=== PATIENT | female | born 1950 | race Caucasian/White ===

== ENCOUNTER 2018-09-18 17:18 | Emergency (ER) | payer MEDICARE, OTHER ==
[~2018-09-18] VITALS: Ht 149.9 cm; Wt 63.6 kg
[2018-09-18 20:33] VITALS: BP 149/66
== END 2018-09-18 20:35 | disposition home or self-care (01) ==
LOC: ER 17:19
DX: R51 Headache (principal)
CPT/HCPCS: 70450; 99284

== ENCOUNTER 2019-07-10 21:16 | Inpatient (IN) | payer MEDICARE, OTHER ==
[~2019-07-10] VITALS: Ht 162.6 cm; Wt 58.7 kg
[2019-07-10] MEDS: heparin 25,000 UNIT/250ml bag 250 ML IV SCH (01:50)
[~2019-07-10 21:16] MED LIST: etomidate 2mg/ml inj. ONE; heparin 10,000 units/1 ML INJ ONE; heparin, porcine-25,000 units/D5-250ml premix IV ONE; nitroGLYCERIN 0.4mg SUBLingual tab SL ONE; normal saline 1000ML IV soln ONE; rocuronium 10mg/ml inj IV ONE; sod chloride 0.9% 10ml flush syringe IV ONE
[2019-07-10] MEDS ORDERED: propofol 1000mg/100ml bottle 100 ML IV ONE (21:19)
[2019-07-10] MEDS ORDERED: succinylcholine 20mg/ml inj IV ONE (21:20)
[2019-07-10] MEDS ORDERED: FENTANYL-0.9 % NACL/PF 100 ML IV PRN (21:25)
[2019-07-10] MEDS ORDERED: nitroGLYCERIN-Tridil 50MG/D5W 250 ML IV PRN (21:25)
[2019-07-10] MEDS ORDERED: etomidate 2mg/ml inj. IV ONE (21:26)
[2019-07-10] MEDS ORDERED: rocuronium 10mg/ml inj IV ONE (21:26)
[2019-07-10] MEDS ORDERED: amiodarone 150mg/dext, iso-os 100 ML IV ONE (21:30)
[2019-07-10] MEDS ORDERED: amiodarone/D5 360MG/200ML BAG 200 ML IV SCH (21:30)
[2019-07-10] MEDS ORDERED: heparin 10,000 units/1 ML INJ IV ONE (21:35)
[2019-07-10] MEDS ORDERED: heparin 10,000 units/1 ML INJ IV PRN (21:35)
[2019-07-10 21:41] LABS: BASOPHILS # (AUTO) 0.2 X10'3 (0-0.2); BASOPHILS % (AUTO) 1.3 % (0-1); EOSINOPHILS # (AUTO) 0.5 X10'3 (0-0.9); EOSINOPHILS % (AUTO) 4.1 % (0-6); HEMATOCRIT 44.1 % (35.0-45.0); HEMOGLOBIN 14.6 g/dl (12.0-16.0); LYMPHOCYTES % (AUTO) 43.1 % (21-51); MEAN CORPUSCULAR HGB CONC 33.2 g/dL (33.0-36.5); MEAN CORPUSCULAR VOLUME 93.4 FL (78-98); MEAN PLATELET VOLUME 8.6 FL (7.4-10.4); MONOCYTES # (AUTO) 0.7 X10'3 (0-0.9); MONOCYTES % (AUTO) 6.4 % (2-12); NEUTROPHILS # (AUTO) 5.2 X10'3 (1.8-7.7); NEUTROPHILS % (AUTO) 45.1 % (42-75); PLATELET COUNT 228 X10'3 (140-440); RED BLOOD COUNT 4.72 X10'6 (4.20-5.60); RED CELL DISTRIBUTION WIDTH 13.4 % (11.5-14.5); WHITE BLOOD COUNT 11.5 X10'3 (4.5-11.0)
[2019-07-10] MEDS ORDERED: LIDOcaine 1% (10mg/ml)w/preservative injection 20ml MDV ONE (21:47)
[2019-07-10] MEDS ORDERED: iohexol 350 MG/ML 50ML vial IV ONE (21:48)
[2019-07-10] MEDS ORDERED: iohexol 350 MG/1 ML 200ml bottle ONE (21:48)
[2019-07-10 21:49] LABS: PARTIAL THROMBOPLASTIN TIME 32 SECONDS (22-32)
--- NOTE | 2019-07-10 21:53 | NUR ---
HISTORY LIMITED DUE TO PATIENT ALOC.
[2019-07-10 22:01] LABS: ALANINE AMINOTRANSFERASE 94 U/L (12-78); ALBUMIN 3.4 G/DL (3.4-5.0); ALBUMIN/GLOBULIN RATIO 0.9 (1.1-1.5); ALKALINE PHOSPHATASE 71 IU/L (46-116); ANION GAP 29 (8-16); ASPARTATE AMINO TRANSFERASE 88 U/L (10-37); BILIRUBIN,TOTAL 0.2 MG/DL (0.1-1.0); BLOOD UREA NITROGEN 10 MG/DL (7-18); BUN/CREATININE RATIO 8.8 (6.6-38.0); CALCIUM 8.9 MG/DL (8.5-10.1); CHLORIDE 104 MMOL/L (99-107); CREATININE 1.14 MG/DL (0.40-0.90); GLUCOSE 272 MG/DL (70-104); SODIUM 142 MMOL/L (135-145); eGFR 48 ML/MIN
[2019-07-10 22:01] LABS: CLARITY,URINE CLEAR (Clear); COLOR,URINE YELLOW (Yellow); GLUCOSE, URINE 250 mg/dl (Neg); KETONES,URINE NEGATIVE (Neg); LEUKOCYTE ESTERASE ,URINE NEGATIVE (Neg); NITRITES, URINE NEGATIVE (Neg); OCCULT BLOOD,URINE MODERATE (Neg); PROTEIN,URINE 100 mg/dl (Neg); UROBILINOGEN,URINE 0.2 E.U/dL (0.2-1.0)
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
[2019-07-10 22:06] LABS: POTASSIUM 2.7 MMOL/L (3.5-5.1)
[2019-07-10 22:07] LABS: TOTAL CARBON DIOXIDE 9.1 MMOL/L (24-32)
[2019-07-10 22:08] LABS: UA COLLECTION TYPE CLN CATCH MIDSTREAM
[2019-07-10 22:09] LABS: BACTERIA,URINE FEW /HPF (Neg); SQUAMOUS EPITHELIAL CELL,UR FEW /LPF (FEW); WBC,URINE 0-4 /HPF (0-4)
[2019-07-10] MEDS ORDERED: midazolam 2 mg/2 ml injection ONE ×2 (22:11→23:02)
[2019-07-10] MEDS ORDERED: DOBUTamine-DoBUTrex 500mg/D5W 250 ML IV ONE (22:19)
[2019-07-10] MEDS ORDERED: tirofiban 12.5mg in NS 250mL 250 ML IV ONE (22:27)
[2019-07-10] MEDS ORDERED: iohexol 350MG/ML 100ml bottle IV ONE (22:48)
--- NOTE | 2019-07-10 23:23 | NUR ---
On standby with vent from 2157 to 2 per request of daylin rouse RN Addendum: 07/10/19 at 9336 by Trevor Bingham RT Amended: Links added.
[2019-07-10] MEDS ORDERED: magnesium 4gm in 100ml NS 100 ML IV PRN (23:40)
[2019-07-10] MEDS ORDERED: magnesium 2GM in 50ml NS 50 ML IV PRN (23:40)
[2019-07-10 23:53] LABS: MAGNESIUM 2.3 MG/DL (1.5-2.4); PHOSPHORUS 5.8 MG/DL (2.3-4.5)
[2019-07-11] VITALS (23 sets, daily range): BP systolic 50–102; BP diastolic 30–71
[2019-07-11] MEDS ORDERED: acetaminophen 650mg rectal suppository RC PRN (00:10)
[2019-07-11] MEDS ORDERED: MIDAZolam 5mg/ml 2ml vial IV ONE (00:10)
[2019-07-11] MEDS ORDERED: acetaminophen 325mg tablet PO PRN ×3 (00:10→00:35)
[2019-07-11] MEDS ORDERED: potassium CL 10mEq/100ml bag 100 ML IV PRN ×2 (00:10)
[2019-07-11] MEDS ORDERED: ondansetron/PF 4mg/2ml inj IV PRN (00:10)
[2019-07-11] MEDS ORDERED: midazolam 2 mg/2 ml injection IV ONE (00:15)
[2019-07-11] MEDS ORDERED: HYDROcodone/acetaminophen 10/325mg tab PO PRN ×2 (00:35)
[2019-07-11] MEDS ORDERED: morphine 10mg/ml inj. IV PRN (00:35)
[2019-07-11] MEDS ORDERED: OXAZEpam 15mg capsule PO PRN (00:35)
[2019-07-11] MEDS ORDERED: proCHLORperazine 10 MG/2 ml inj IV PRN (00:35)
[2019-07-11] MEDS ORDERED: nitroGLYCERIN 0.4mg SUBLingual tab SL PRN (00:35)
[2019-07-11] MEDS ORDERED: magnesium hydroxide 30ml (MOM) UD suspension PO PRN (00:35)
[2019-07-11] MEDS ORDERED: clopidogrel 75mg tablet PO ONE ×2 (00:35→08:00)
[2019-07-11] MEDS ORDERED: morphine 4 MG/ML inj SYRINge IV PRN (00:35)
[2019-07-11] MEDS ORDERED: cyclobenzaprine 10mg tablet PO PRN (00:35)
[2019-07-11] MEDS: tirofiban 12.5mg in NS 250mL 250 ML IV SCH ×2 (01:50→15:33)
[2019-07-11] MEDS: DOBUTamine-DoBUTrex 500mg/D5W 250 ML IV SCH ×3 (01:50→21:24)
[2019-07-11] MEDS: amiodarone/D5 360MG/200ML BAG 200 ML IV SCH ×4 (02:23→21:23)
[2019-07-11] MEDS: normal saline 1000ml 1,000 ML IV SCH ×3 (02:31→16:33)
[2019-07-11] MEDS: midazolam 100mg in NS 100ml 100 ML IV PRN ×2 (02:32→16:33)
[2019-07-11] MEDS: FENTANYL-0.9 % NACL/PF 100 ML IV PRN ×2 (02:33→16:32)
[2019-07-11 03:11] LABS: ALANINE AMINOTRANSFERASE 152 U/L (12-78); ALBUMIN 2.8 G/DL (3.4-5.0); ALBUMIN/GLOBULIN RATIO 0.9 (1.1-1.5); ALKALINE PHOSPHATASE 56 IU/L (46-116); ANION GAP 15 (8-16); ASPARTATE AMINO TRANSFERASE 465 U/L (10-37); BILIRUBIN,TOTAL 0.2 MG/DL (0.1-1.0); BLOOD UREA NITROGEN 10 MG/DL (7-18); CALCIUM 7.4 MG/DL (8.5-10.1); CHLORIDE 102 MMOL/L (99-107); CHOL/HDL RATIO 5.9 (0.00-4.99); CHOLESTEROL 206 MG/DL (0-200); GLUCOSE 341 MG/DL (70-104); HDL CHOLESTEROL 35 MG/DL (35-60); LDL CHOLESTEROL 158 MG/DL (50-100); MAGNESIUM 1.5 MG/DL (1.5-2.4); PHOSPHORUS 2.3 MG/DL (2.3-4.5); SODIUM 136 MMOL/L (135-145); TOTAL CARBON DIOXIDE 18.8 MMOL/L (24-32); TOTAL PROTEIN 5.8 G/DL (6.4-8.2); TRIGLYCERIDES 61 MG/DL (20-135); eGFR 55 ML/MIN
[2019-07-11] MEDS ORDERED: dextrose 50%-water 50ml dispensing syringe IV PRN ×2 (03:25)
[2019-07-11] MEDS ORDERED: insulin Lispro (HumaLOG) vial - multi-dose SQ SCH (03:25)
[2019-07-11] MEDS ORDERED: glucagon, human recombinant 1mg kit SUBCUT PRN (03:25)
--- NOTE | 2019-07-11 05:23 | NUR ---
0100..Patient in room ICU 2042. I have received report from Olivia KINNEY and had the opportunity to ask questions and assume patient care.
--- NOTE | 2019-07-11 05:24 | NUR ---
0100..Assessment as noted, IABP to right groin intact, several new PIVs started. Family at bedside.
[2019-07-11 05:50] LABS: BASOPHILS % (AUTO) 0.3 % (0-1); EOSINOPHILS % (AUTO) 0 % (0-6); HEMATOCRIT 35.9 % (35.0-45.0); HEMOGLOBIN 12.3 g/dl (12.0-16.0); LYMPHOCYTES # (AUTO) 1.6 X10'3 (1.1-4.8); LYMPHOCYTES % (AUTO) 11.2 % (21-51); MEAN CORPUSCULAR HEMOGLOBIN 31.1 PG (27.0-31.0); MEAN CORPUSCULAR HGB CONC 34.3 g/dL (33.0-36.5); MEAN CORPUSCULAR VOLUME 90.8 FL (78-98); MEAN PLATELET VOLUME 8.7 FL (7.4-10.4); MONOCYTES # (AUTO) 0.9 X10'3 (0-0.9); MONOCYTES % (AUTO) 6.1 % (2-12); NEUTROPHILS % (AUTO) 82.4 % (42-75); PLATELET COUNT 238 X10'3 (140-440); RED BLOOD COUNT 3.96 X10'6 (4.20-5.60); RED CELL DISTRIBUTION WIDTH 13.3 % (11.5-14.5); WHITE BLOOD COUNT 14.6 X10'3 (4.5-11.0)
--- NOTE | 2019-07-11 05:51 | NUR ---
[id number]..Pt wakes up wild, moves all extremities, does not follow commands. Discontinued piv to right lower forearm, new piv started to upper right forearm. BP very sensitive to versed.
--- NOTE | 2019-07-11 06:30 | NUR ---
Patient in room ICU 2042. I have received report from AKBAR and had the opportunity to ask questions and assume patient care.
--- NOTE | 2019-07-11 06:30 | NUR ---
0630..Problems reprioritized. Patient report given, questions answered & plan of care reviewed with Horacio KINNEY.
--- NOTE | 2019-07-11 07:00 | NUR ---
PT ANXIOUS- LIFTING UP HEAD- REMINDED SEVERAL TIMES TO RELAX. VERSED BOLUS GIVEN. RT FEM SHEAT SATURATED WITH BLOOD- BUT NO HEMATOMA. DOPPLER PULSES, P.T.STRONGER THAN D.P. PULSES BILATERLY. PT OPENS EYES NOT FOLLOWING COMMANDS
[2019-07-11] MEDS: docusate sodium 100mg/10ml UD cup PO SCH ×2 (08:00→20:00)
[2019-07-11] MEDS ORDERED: docusate sod 100mg capsule PO SCH (08:00)
[2019-07-11] MEDS ORDERED: etomidate 2mg/ml inj. ONE (08:00)
--- NOTE | 2019-07-11 09:00 | NUR ---
PT FOLLOWING COMMANDS AND NODDING. FENTANYL AND VERSED GTTS INCREASED TO RELAX PT AND KEEP FROM LIFTING HEAD. PT WITH EMESIS X 2 BROWN LIQUID WITH UNDIGESTED FOOD- MUSHROOM, CARROTS ETC.
[2019-07-11 09:20] LABS: ALANINE AMINOTRANSFERASE 147 U/L (12-78); ALBUMIN 2.9 G/DL (3.4-5.0); ALBUMIN/GLOBULIN RATIO 0.9 (1.1-1.5); ALKALINE PHOSPHATASE 53 IU/L (46-116); ANION GAP 12 (8-16); ASPARTATE AMINO TRANSFERASE 459 U/L (10-37); BILIRUBIN,TOTAL 0.2 MG/DL (0.1-1.0); BLOOD UREA NITROGEN 11 MG/DL (7-18); BUN/CREATININE RATIO 12.1 (6.6-38.0); CALCIUM 8.3 MG/DL (8.5-10.1); CHLORIDE 108 MMOL/L (99-107); CREATININE 0.91 MG/DL (0.40-0.90); GLUCOSE 123 MG/DL (70-104); POTASSIUM 4.7 MMOL/L (3.5-5.1); SODIUM 138 MMOL/L (135-145); TOTAL CARBON DIOXIDE 17.7 MMOL/L (24-32); eGFR 62 ML/MIN
[2019-07-11 09:23] LABS: MAGNESIUM 1.5 MG/DL (1.5-2.4); PHOSPHORUS 2.1 MG/DL (2.3-4.5)
[2019-07-11] MEDS: aspirin 81mg tab.chew PO SCH (09:59)
[2019-07-11] MEDS: atorvastatin 20mg tablet PO SCH (10:00)
[2019-07-11] MEDS: pantoprazole 40 MG vial IV SCH (10:00)
--- NOTE | 2019-07-11 10:00 | NUR ---
PTT 139- MD NOTIFIED- OFF X 2 HRS. UPDATE TO FAMILY BY PHONE AND HERE TO VISIT. ZOFRAN GIVEN PER MD- AWARE OF EMESIS. THICK BROWN SX BY ETT- NO CHANGE IN COLOR SINCE EMESIS.
--- NOTE | 2019-07-11 10:21 | NUR ---
Initial: Pt admit with CP, NSTEMI, cardiac arrest, acute respiratory failure, and metabolic acidosis. Pt unresponsive upon arrival to ED and required emergent intubation per H&P. TF recommendations below for if prolonged intubation and pt to receive nutrition support. LBM 07/11. No edema or wounds. Will continue to follow. Recommendations: 1) If prolonged intubation and to receive TF, continuous Vital AF with goal rate of 55 mL/hr 2) If above, prealbumin q M/TH and daily weights 3) Once extubated advance diet as medically indicated to heart healthy 4) Monitor BG levels, current range 123-341 with no hx DM, A1c 5.3 Addendum: 07/11/19 at [address] Amended: Links added.
[2019-07-11] MEDS: heparin 25,000 UNIT/250ml bag 250 ML IV SCH ×2 (11:21→21:27)
--- NOTE | 2019-07-11 12:00 | NUR ---
CL PLACED BY . MVO2 DRAWN- SAT 76- DOBUTAMINE DECREASED.
--- NOTE | 2019-07-11 15:00 | NUR ---
AFTER HEPARIN GTT RATE DECREASED TO 500- PTT REDRAWN- NEW LEVEL AT 63- RATE DECREASED TO 400. VERSED OFF AND FENTANYL DECREASED FOR SPONT TRIALS- FAILED, EVEN THOUGH ANXIOUS- DECREASED TV TO 150 SND OCC APNEA- FAMILY AT BS AND AWARE- RETURNED TO FENT AND VERSED GTT.
--- NOTE | 2019-07-11 18:55 | NUR ---
184..Patient in room ICU 2042. I have received report from Horacio KINNEY and had the opportunity to ask questions and assume patient care.
[2019-07-11] MEDS: insulin glargine (Lantus) pen - multi-dose SQ SCH (20:10)
--- NOTE | 2019-07-11 20:37 | NUR ---
1999..Assessment as noted, off sedation pt extremely agitated, moves all extremities, looks around, but does not follow commands, sedation restarted, with good effect.
[2019-07-11 20:39] LABS: ALBUMIN 2.8 G/DL (3.4-5.0); ANION GAP 12 (8-16); BLOOD UREA NITROGEN 16 MG/DL (7-18); BUN/CREATININE RATIO 16.7 (6.6-38.0); CALCIUM 7.9 MG/DL (8.5-10.1); CHLORIDE 105 MMOL/L (99-107); CREATININE 0.96 MG/DL (0.40-0.90); GLUCOSE 112 MG/DL (70-104); MAGNESIUM 1.3 MG/DL (1.5-2.4); PHOSPHORUS 3.3 MG/DL (2.3-4.5); POTASSIUM 5.3 MMOL/L (3.5-5.1); SODIUM 137 MMOL/L (135-145); TOTAL CARBON DIOXIDE 19.8 MMOL/L (24-32); eGFR 58 ML/MIN
[2019-07-12] VITALS (24 sets, daily range): BP systolic 5–121; BP diastolic 35–74
[2019-07-12] MEDS: amiodarone/D5 360MG/200ML BAG 200 ML IV SCH ×4 (00:38→19:47)
[2019-07-12] MEDS: mineral oil/petrolatum ophthal oint EACHEYE SCH ×4 (02:00→19:42)
--- NOTE | 2019-07-12 02:25 | NUR ---
0000..Resting quietly, no changes noted.
[2019-07-12 03:10] LABS: BASOPHILS % (AUTO) 0.3 % (0-1); EOSINOPHILS % (AUTO) 0.1 % (0-6); HEMATOCRIT 29.1 % (35.0-45.0); HEMOGLOBIN 10.1 g/dl (12.0-16.0); LYMPHOCYTES # (AUTO) 1.9 X10'3 (1.1-4.8); LYMPHOCYTES % (AUTO) 18.4 % (21-51); MEAN CORPUSCULAR HEMOGLOBIN 31.1 PG (27.0-31.0); MEAN CORPUSCULAR HGB CONC 34.7 g/dL (33.0-36.5); MEAN CORPUSCULAR VOLUME 89.8 FL (78-98); MEAN PLATELET VOLUME 8.5 FL (7.4-10.4); MONOCYTES # (AUTO) 0.8 X10'3 (0-0.9); MONOCYTES % (AUTO) 7.6 % (2-12); NEUTROPHILS # (AUTO) 7.6 X10'3 (1.8-7.7); NEUTROPHILS % (AUTO) 73.6 % (42-75); PLATELET COUNT 187 X10'3 (140-440); RED BLOOD COUNT 3.24 X10'6 (4.20-5.60); RED CELL DISTRIBUTION WIDTH 13.4 % (11.5-14.5); WHITE BLOOD COUNT 10.3 X10'3 (4.5-11.0)
[2019-07-12 03:19] LABS: PARTIAL THROMBOPLASTIN TIME 49 SECONDS (22-32)
[2019-07-12 03:38] LABS: ALANINE AMINOTRANSFERASE 108 U/L (12-78); ALBUMIN 2.6 G/DL (3.4-5.0); ALBUMIN/GLOBULIN RATIO 0.9 (1.1-1.5); ALKALINE PHOSPHATASE 46 IU/L (46-116); ANION GAP 9 (8-16); ASPARTATE AMINO TRANSFERASE 287 U/L (10-37); BILIRUBIN,TOTAL 0.3 MG/DL (0.1-1.0); BLOOD UREA NITROGEN 15 MG/DL (7-18); BUN/CREATININE RATIO 18.8 (6.6-38.0); CALCIUM 8.1 MG/DL (8.5-10.1); CHLORIDE 107 MMOL/L (99-107); GLUCOSE 96 MG/DL (70-104); MAGNESIUM 2.3 MG/DL (1.5-2.4); PHOSPHORUS 3.4 MG/DL (2.3-4.5); POTASSIUM 4.2 MMOL/L (3.5-5.1); SODIUM 136 MMOL/L (135-145); TOTAL CARBON DIOXIDE 20.2 MMOL/L (24-32); TOTAL PROTEIN 5.5 G/DL (6.4-8.2); eGFR 72 ML/MIN
--- NOTE | 2019-07-12 04:19 | NUR ---
0400..No changes noted.
[2019-07-12] MEDS: FENTANYL-0.9 % NACL/PF 100 ML IV PRN (05:21)
[2019-07-12] MEDS: midazolam 100mg in NS 100ml 100 ML IV PRN (05:21)
--- NOTE | 2019-07-12 06:20 | NUR ---
0620..Problems reprioritized. Patient report given, questions answered & plan of care reviewed with Horacio KINNEY.
--- NOTE | 2019-07-12 06:30 | NUR ---
Patient in room ICU 2042. I have received report from divina and had the opportunity to ask questions and assume patient care.
--- NOTE | 2019-07-12 07:00 | NUR ---
versed off, fentanyl to 20mcg/hr to allow awakening for weaning- anxious, opens eyes, but not following commands. ett sx- thick, creamy, king, yellow with re specks- large amounts. temp 38.1 today. sbp improved today
[2019-07-12] MEDS: normal saline 1000ml 1,000 ML IV SCH (07:23)
[2019-07-12] MEDS ORDERED: clopidogrel 75mg tablet PO SCH (08:00)
--- NOTE | 2019-07-12 08:30 | NUR ---
pt arousing more-follows commands. continue with large sx. attempting to raise up head and legs, despite imobilizer in place. told to not do this frequently- doenst always obey. misty rt groin and leg with blood drainage
[2019-07-12] MEDS: pantoprazole 40 MG vial IV SCH (08:36)
[2019-07-12] MEDS: docusate sodium 100mg/10ml UD cup PO SCH (08:36)
[2019-07-12] MEDS: atorvastatin 20mg tablet PO SCH (08:37)
[2019-07-12] MEDS: aspirin 81mg tab.chew PO SCH (08:37)
[2019-07-12 08:57] LABS: ALBUMIN 2.4 G/DL (3.4-5.0); ANION GAP 11 (8-16); BLOOD UREA NITROGEN 14 MG/DL (7-18); BUN/CREATININE RATIO 17.5 (6.6-38.0); CALCIUM 8.1 MG/DL (8.5-10.1); CHLORIDE 106 MMOL/L (99-107); GLUCOSE 95 MG/DL (70-104); POTASSIUM 4.1 MMOL/L (3.5-5.1); SODIUM 137 MMOL/L (135-145); TOTAL CARBON DIOXIDE 19.6 MMOL/L (24-32); eGFR 72 ML/MIN
--- NOTE | 2019-07-12 11:00 | NUR ---
TF Consult: OGTF to start today per MD; recs below. Pt failed weaning parameters today. Had episode of vomiting yesterday but only 200ml out via OG today per RN. LBM 07/11. MAP 84 per EMR. Will monitor for TF tolerance. Recommendations: 1) OGTF per MD using Vital AF at goal rate 55 mL/hr; to provide 1320ml fluid, 1584 kcals, 1069ml free water, and 100g protein. Initiate at 20ml/hr and advance 20ml Q8 to goal as tolerated. 2) additional water flush 100ml Q6 3) prealbumin q /;daily weights 4) Once extubated advance diet as medically indicated to heart healthy 5) monitor TF tolerance Addendum: 07/12/19 at [address] Amended: Links added.
[2019-07-12] MEDS ORDERED: insulin regular, human vial - multi-dose SQ SCH (11:55)
[2019-07-12] MEDS ORDERED: acetaminophen 325mg/10.15ml oral unit dose solution OGT PRN (11:59)
[2019-07-12] MEDS ORDERED: atorvastatin 20mg tablet OGT SCH (12:00)
--- NOTE | 2019-07-12 12:00 | NUR ---
versed off for 2/1/2 hours, failed weaning- rsbi at 124. pt with thick copious king, yellow, red penny- temp 38- md aware- sputum to lab. remains on baloon pump with adequate pressures.
[2019-07-12] MEDS ORDERED: magnesium hydroxide 30ml (MOM) UD suspension OGT PRN (12:26)
[2019-07-12] MEDS ORDERED: cyclobenzaprine 10mg tablet OGT PRN (12:27)
[2019-07-12] MEDS ORDERED: ASPI-611 PO (13:04)
[2019-07-12] MEDS ORDERED: METO25TA6 PO (13:04)
[2019-07-12] MEDS ORDERED: NITR0.4T48 SL (13:06)
[2019-07-12] MEDS: tirofiban 12.5mg in NS 250mL 250 ML IV SCH (13:47)
--- NOTE | 2019-07-12 14:00 | NUR ---
dr velez in- Aggrastat dcd, update. sputum culture back from 07/10- aware- droplet prec in place and Rocephin started. mvo2 69- aware
[2019-07-12] MEDS: CefTRIAXone/D5W-Rocephin 1gm 50 ML IV SCH (16:20)
--- NOTE | 2019-07-12 18:40 | NUR ---
Patient in room ICU 2042. I have received report from Angelina KINNEY and had the opportunity to ask questions and assume patient care.
[2019-07-12] MEDS: docusate sodium 100mg/10ml UD cup OGT SCH (19:42)
[2019-07-12] MEDS: acetaminophen 325mg/10.15ml oral unit dose solution OGT PRN (19:42)
[2019-07-12] MEDS: DOBUTamine-DoBUTrex 500mg/D5W 250 ML IV SCH (19:46)
[2019-07-12] MEDS: insulin glargine (Lantus) pen - multi-dose SQ SCH (21:00)
[2019-07-12] MEDS: heparin 25,000 UNIT/250ml bag 250 ML IV SCH (21:44)
[2019-07-13] VITALS (24 sets, daily range): BP systolic 73–118; BP diastolic 40–66
[2019-07-13] MEDS: amiodarone/D5 360MG/200ML BAG 200 ML IV SCH ×4 (00:03→19:06)
[2019-07-13] MEDS: FENTANYL-0.9 % NACL/PF 100 ML IV PRN ×2 (00:04→14:53)
[2019-07-13] MEDS: midazolam 100mg in NS 100ml 100 ML IV PRN ×2 (00:04→14:52)
[2019-07-13] MEDS ORDERED: lactulose 20gm/30ml cup OGT PRN (00:10)
[2019-07-13] MEDS: mineral oil/petrolatum ophthal oint EACHEYE SCH ×4 (02:01→20:49)
[2019-07-13 03:01] LABS: ABG BASE EXCESS -4.9 mmol/L (-2.0-3.0); ABG HCO3 19.2 mmol/L (22.0-26.0); ABG OXYGEN SATURATION 93.8 % (95-98); ABG PCO2 (T) 31.5 mmHg (35.0-45.0); ABG PH (T) 7.401 (7.350-7.450); ABG PO2 (T) 64.6 mmHg (83-108); FCOHb 0.3 % (0.5-1.5); FO2Hb 93.5 % (94-100); MINUTE VOLUME 9 L/min; PATIENT TEMPERATURE 36.8; PEEP 5 cm H2O; RESPIRATORY RATE 20 b/min; RESPIRATORY RATE (OBSERVED) 20 b/min; TIDAL VOLUME 400 mL; TOTAL HEMOGLOBIN 10.3 G/dl (12.0-16.0)
[2019-07-13 03:20] LABS: BASOPHILS # (AUTO) 0.1 X10'3 (0-0.2); BASOPHILS % (AUTO) 0.8 % (0-1); EOSINOPHILS # (AUTO) 0.1 X10'3 (0-0.9); EOSINOPHILS % (AUTO) 1.1 % (0-6); HEMATOCRIT 25.8 % (35.0-45.0); HEMOGLOBIN 8.9 g/dl (12.0-16.0); LYMPHOCYTES # (AUTO) 2.2 X10'3 (1.1-4.8); LYMPHOCYTES % (AUTO) 23.9 % (21-51); MEAN CORPUSCULAR HEMOGLOBIN 30.9 PG (27.0-31.0); MEAN CORPUSCULAR HGB CONC 34.3 g/dL (33.0-36.5); MEAN CORPUSCULAR VOLUME 90.3 FL (78-98); MEAN PLATELET VOLUME 9.1 FL (7.4-10.4); MONOCYTES # (AUTO) 0.6 X10'3 (0-0.9); MONOCYTES % (AUTO) 6.9 % (2-12); NEUTROPHILS # (AUTO) 6.3 X10'3 (1.8-7.7); NEUTROPHILS % (AUTO) 67.3 % (42-75); PLATELET COUNT 139 X10'3 (140-440); RED BLOOD COUNT 2.86 X10'6 (4.20-5.60); RED CELL DISTRIBUTION WIDTH 13.4 % (11.5-14.5); WHITE BLOOD COUNT 9.3 X10'3 (4.5-11.0)
[2019-07-13 03:45] LABS: ALANINE AMINOTRANSFERASE 71 U/L (12-78); ALBUMIN 2.1 G/DL (3.4-5.0); ALBUMIN/GLOBULIN RATIO 0.7 (1.1-1.5); ALKALINE PHOSPHATASE 48 IU/L (46-116); ANION GAP 8 (8-16); ASPARTATE AMINO TRANSFERASE 139 U/L (10-37); BILIRUBIN,TOTAL 0.4 MG/DL (0.1-1.0); BLOOD UREA NITROGEN 12 MG/DL (7-18); BUN/CREATININE RATIO 17.4 (6.6-38.0); CALCIUM 7.5 MG/DL (8.5-10.1); CHLORIDE 107 MMOL/L (99-107); CREATININE 0.69 MG/DL (0.40-0.90); GLUCOSE 93 MG/DL (70-104); MAGNESIUM 1.7 MG/DL (1.5-2.4); PHOSPHORUS 2.3 MG/DL (2.3-4.5); POTASSIUM 3.3 MMOL/L (3.5-5.1); PREALBUMIN 15.7 MG/DL (19-36); SODIUM 137 MMOL/L (135-145); TOTAL CARBON DIOXIDE 21.9 MMOL/L (24-32); TOTAL PROTEIN 5.2 G/DL (6.4-8.2); eGFR 85 ML/MIN
[2019-07-13] MEDS: potassium Cl 20mEq/100mL bag 100 ML IV PRN ×2 (04:22→05:37)
[2019-07-13 05:36] LABS: OXYGEN SATURATION (MIXED VEN) 69.3 % (60-80); PO2 MIXED VENOUS (TEMP COR) 36.6 mmHg (35-46)
[2019-07-13 05:36] LABS: ABG HCO3 17.6 mmol/L (22.0-26.0); ABG OXYGEN SATURATION 91.5 % (95-98); ABG PCO2 (T) 26.5 mmHg (35.0-45.0); ABG PH (T) 7.442 (7.350-7.450); ABG PO2 (T) 60.4 mmHg (83-108); ALLEN'S TEST Positive; FCOHb 0.3 % (0.5-1.5); FMetHb 0.1 % (0.3-1.12); FO2Hb 91.1 % (94-100); MINUTE VOLUME 9 L/min; PATIENT TEMPERATURE 37.9; PEEP 5 cm H2O; RESPIRATORY RATE 20 b/min; RESPIRATORY RATE (OBSERVED) 22 b/min; TIDAL VOLUME 400 mL; TOTAL HEMOGLOBIN 11.1 G/dl (12.0-16.0)
[2019-07-13 05:41] LABS: ABG BASE EXCESS -17.8 mmol/L (-2.0-3.0); ABG HCO3 9.9 mmol/L (22.0-26.0); ABG OXYGEN SATURATION 96.1 % (95-98); ABG PCO2 (T) 27.1 mmHg (35.0-45.0); ABG PH (T) 7.167 (7.350-7.450); ABG PO2 (T) 92.8 mmHg (83-108); FCOHb 0.8 % (0.5-1.5); FMetHb 0.1 % (0.3-1.12); FO2Hb 95.2 % (94-100); MINUTE VOLUME 9 L/min; PEEP 5 cm H2O; RESPIRATORY RATE 20 b/min; RESPIRATORY RATE (OBSERVED) 20 b/min; TIDAL VOLUME 400 mL; TOTAL HEMOGLOBIN 14.5 G/dl (12.0-16.0)
[2019-07-13 05:41] LABS: OXYGEN SATURATION (MIXED VEN) 76.7 % (60-80); PO2 MIXED VENOUS (TEMP COR) 39.1 mmHg (35-46)
[2019-07-13 05:41] LABS: ABG BASE EXCESS -14.6 mmol/L (-2.0-3.0); ABG HCO3 12.1 mmol/L (22.0-26.0); ABG OXYGEN SATURATION 98.2 % (95-98); ABG PCO2 (T) 27.8 mmHg (35.0-45.0); ABG PH (T) 7.241 (7.350-7.450); ABG PO2 (T) 120.8 mmHg (83-108); ALLEN'S TEST Positive; FCOHb 0.3 % (0.5-1.5); FMetHb 0.3 % (0.3-1.12); FO2Hb 97.6 % (94-100); MINUTE VOLUME 10 L/min; PATIENT TEMPERATURE 34.1; PEEP 5 cm H2O; RESPIRATORY RATE 20 b/min; RESPIRATORY RATE (OBSERVED) 20 b/min; TIDAL VOLUME 400 mL; TOTAL HEMOGLOBIN 13.1 G/dl (12.0-16.0)
--- NOTE | 2019-07-13 06:22 | NUR ---
Problems reprioritized. Patient report given, questions answered & plan of care reviewed with Angelina KINNEY.
--- NOTE | 2019-07-13 06:30 | NUR ---
Patient in room ICU 2042. I have received report from pat and had the opportunity to ask questions and assume patient care.
--- NOTE | 2019-07-13 07:00 | NUR ---
iabp changed to 1:3 at 0610- tolerating well- unassisted bp about the same- 80's with augmented dbp at 113. cuff pressure lower- will monitor
[2019-07-13] MEDS: docusate sodium 100mg/10ml UD cup OGT SCH ×2 (08:08→20:48)
[2019-07-13] MEDS: pantoprazole 40 MG vial IV SCH (08:08)
[2019-07-13] MEDS: aspirin 81mg tab.chew OGT SCH (08:10)
[2019-07-13] MEDS: CefTRIAXone/D5W-Rocephin 1gm 50 ML IV SCH (08:11)
[2019-07-13] MEDS: clopidogrel 75mg tablet OGT SCH (08:11)
[2019-07-13] MEDS: normal saline 1000ml 1,000 ML IV SCH (08:12)
[2019-07-13] MEDS ORDERED: ATOR80TA PO (09:43)
[2019-07-13] MEDS ORDERED: QUELT PO (09:43)
[2019-07-13] MEDS ORDERED: ASPI-12 PO (09:43)
--- NOTE | 2019-07-13 10:00 | NUR ---
pt tolerated cpap fo 1 hr 20", but became very agitated with occ decreased tv- sitting up and lifting rt leg- versed restarted and bolused and bolused with fentanyl also. unable to relaxed pt, so returned to previous vent setting. at bs- updated. calls from daughter, neighbor and son. pt opens eyes and looks, but doesnt follow commands. call to dr velez- updated- plan for removal of iabp later today
--- NOTE | 2019-07-13 12:20 | NUR ---
iabp dcd by dr velez.hemostasis acheived, fem stop applied, pt frquently agitated despite sedation. aware that he will need meds prophylaxis for pts dx of meningitis- will follow up with pmd
--- NOTE | 2019-07-13 15:00 | NUR ---
dr palencia in- updated, he reviewed last progress note and med list faxed by his office when asked, also echo done today. dobutamine decresed to 2'5 per orders
--- NOTE | 2019-07-13 16:00 | NUR ---
fentanyl gtt and versed gtt increased- now sbp decreased. gtts returned to previous rate and dobutamine back up to 5 mcg
[2019-07-13] MEDS ORDERED: nitroGLYCERIN 0.4mg SUBLingual tab SL PRN (16:30)
[2019-07-13] MEDS ORDERED: MAG PO SCH (16:55)
[2019-07-13] MEDS ORDERED: CALCIUM CARBONATE PO SCH (16:55)
[2019-07-13] MEDS ORDERED: ASPIRIN PO SCH (16:55)
--- NOTE | 2019-07-13 17:00 | NUR ---
droplet isolation dcd after 24 that abx started- as per dr barrera, infectious disease. called- left message that when he goes to pmd tomorrow to have them call here or access computer records to treat him for phrophalytic menigitis exposure
[2019-07-13] MEDS ORDERED: ASPI-974 PO (17:24)
--- NOTE | 2019-07-13 18:05 | NUR ---
sbp to 100 now- pt more awake.
--- NOTE | 2019-07-13 18:37 | NUR ---
Patient in room ICU 2042. I have received report from VALENTINE KINNEY and had the opportunity to ask questions and assume patient care.
[2019-07-13] MEDS: insulin glargine (Lantus) pen - multi-dose SQ SCH (20:42)
[2019-07-13] MEDS: atorvastatin 20mg tablet PO SCH (20:45)
[2019-07-13] MEDS: lactobacillus rhamnosus 10,000 MMU CELLS/CAPSULE PO SCH (20:49)
[2019-07-13] MEDS: chloestyramine/aspartame 4gm packet PO SCH (20:49)
[2019-07-14] VITALS (23 sets, daily range): BP systolic 84–108; BP diastolic 43–61
[2019-07-14] MEDS: FENTANYL-0.9 % NACL/PF 100 ML IV PRN ×2 (00:01→15:12)
[2019-07-14] MEDS: amiodarone/D5 360MG/200ML BAG 200 ML IV SCH ×3 (00:02→15:10)
[2019-07-14] MEDS: DOBUTamine-DoBUTrex 500mg/D5W 250 ML IV SCH (00:02)
--- NOTE | 2019-07-14 01:25 | NUR ---
have attempted to titrate down sedation twice this shift. pt gets anxious with care and begins trying to sit up and move all extremities. pt is able to follow commands when she is calm, wiggled toes and squeezed hands. when asked if in pain, shook head no. groin site is unchanged, bruised but soft.
[2019-07-14] MEDS: mineral oil/petrolatum ophthal oint EACHEYE SCH ×4 (02:06→21:36)
[2019-07-14 02:33] LABS: BASOPHILS % (AUTO) 0.4 % (0-1); EOSINOPHILS # (AUTO) 0.1 X10'3 (0-0.9); EOSINOPHILS % (AUTO) 1.3 % (0-6); HEMATOCRIT 24.5 % (35.0-45.0); HEMOGLOBIN 8.6 g/dl (12.0-16.0); LYMPHOCYTES # (AUTO) 1.7 X10'3 (1.1-4.8); LYMPHOCYTES % (AUTO) 16.5 % (21-51); MEAN CORPUSCULAR HEMOGLOBIN 31.5 PG (27.0-31.0); MEAN CORPUSCULAR HGB CONC 35.2 g/dL (33.0-36.5); MEAN CORPUSCULAR VOLUME 89.7 FL (78-98); MEAN PLATELET VOLUME 8.8 FL (7.4-10.4); MONOCYTES # (AUTO) 0.9 X10'3 (0-0.9); MONOCYTES % (AUTO) 8.2 % (2-12); NEUTROPHILS # (AUTO) 7.7 X10'3 (1.8-7.7); NEUTROPHILS % (AUTO) 73.6 % (42-75); PLATELET COUNT 121 X10'3 (140-440); RED BLOOD COUNT 2.74 X10'6 (4.20-5.60); RED CELL DISTRIBUTION WIDTH 13.5 % (11.5-14.5); WHITE BLOOD COUNT 10.5 X10'3 (4.5-11.0)
[2019-07-14 02:40] LABS: PARTIAL THROMBOPLASTIN TIME 30 SECONDS (22-32)
[2019-07-14 02:41] LABS: ALANINE AMINOTRANSFERASE 57 U/L (12-78); ALBUMIN 2.1 G/DL (3.4-5.0); ALBUMIN/GLOBULIN RATIO 0.6 (1.1-1.5); ALKALINE PHOSPHATASE 56 IU/L (46-116); ANION GAP 7 (8-16); ASPARTATE AMINO TRANSFERASE 84 U/L (10-37); BILIRUBIN,TOTAL 0.4 MG/DL (0.1-1.0); BLOOD UREA NITROGEN 12 MG/DL (7-18); BUN/CREATININE RATIO 21.4 (6.6-38.0); CALCIUM 7.9 MG/DL (8.5-10.1); CHLORIDE 107 MMOL/L (99-107); CREATININE 0.56 MG/DL (0.40-0.90); GLUCOSE 95 MG/DL (70-104); MAGNESIUM 1.8 MG/DL (1.5-2.4); PHOSPHORUS 2.3 MG/DL (2.3-4.5); POTASSIUM 3.7 MMOL/L (3.5-5.1); SODIUM 137 MMOL/L (135-145); TOTAL PROTEIN 5.5 G/DL (6.4-8.2); eGFR > 90 ML/MIN
[2019-07-14 03:51] LABS: ABG BASE EXCESS -4.3 mmol/L (-2.0-3.0); ABG HCO3 19.5 mmol/L (22.0-26.0); ABG OXYGEN SATURATION 95.8 % (95-98); ABG PCO2 (T) 32.2 mmHg (35.0-45.0); ABG PH (T) 7.404 (7.350-7.450); ABG PO2 (T) 81.4 mmHg (83-108); FCOHb 0.3 % (0.5-1.5); FO2Hb 95.5 % (94-100); MINUTE VOLUME 9 L/min; PATIENT TEMPERATURE 37.8; PEEP 5 cm H2O; RESPIRATORY RATE 20 b/min; RESPIRATORY RATE (OBSERVED) 20 b/min; TIDAL VOLUME 400 mL; TOTAL HEMOGLOBIN 9.3 G/dl (12.0-16.0)
--- NOTE | 2019-07-14 06:30 | NUR ---
Problems reprioritized. Patient report given, questions answered & plan of care reviewed with SRI KINNEY.
[2019-07-14] MEDS: pantoprazole 40 MG vial IV SCH (08:54)
[2019-07-14] MEDS: midazolam 100mg in NS 100ml 100 ML IV PRN (08:54)
[2019-07-14] MEDS: clopidogrel 75mg tablet OGT SCH (08:54)
[2019-07-14] MEDS: lactobacillus rhamnosus 10,000 MMU CELLS/CAPSULE PO SCH ×2 (08:54→21:37)
[2019-07-14] MEDS: docusate sodium 100mg/10ml UD cup OGT SCH ×2 (08:54→21:36)
[2019-07-14] MEDS: chloestyramine/aspartame 4gm packet PO SCH ×2 (08:55→21:37)
[2019-07-14] MEDS: CefTRIAXone/D5W-Rocephin 1gm 50 ML IV SCH (08:55)
[2019-07-14] MEDS: aspirin 81mg tab.chew OGT SCH (08:57)
--- NOTE | 2019-07-14 10:31 | NUR ---
Went over dobutamine order with Dr. Hamilton and explained to him that every time the dobutamine was turned down on [employer] weapon system operator the systolic was dropping significantly and because patients pressure has been labile I have not titrated the dobutamine down yet. Dr. Hamilton stated " Dobutamine does nothing for BP, turn it off" I confirmed this is what he wanted and he stated "yes". Dobutamine is now off and BP went from 120 systolic to 92, will continue to monitor.
--- NOTE | 2019-07-14 12:07 | NUR ---
Reassessment: Patient is intubated, sedated, tolerating tube feeding at goal rate. Gastric residual volume up to 390 ml this morning, afterwards was 210 ml. Patient is receiving colace routine BID. Failed weaning parameters today. Pt admit with CP, NSTEMI, cardiac arrest, acute respiratory failure, and metabolic acidosis. Pt unresponsive upon arrival to ED and required emergent intubation per H&P. No change in nutrition intervention. Will continue to follow. Recommendations: 1) Continue tube feeding per OGTF using Vital AF at goal rate 55 mL/hr; to provide 1320ml fluid, 1584 kcals, 1069ml free water, and 100g protein. 2) continue additional water flush 100ml Q6 3) prealbumin q /;daily weights 4) Once extubated advance diet as medically indicated to heart healthy 5) monitor TF tolerance Addendum: 07/14/19 at [address] Amended: Links added.
--- NOTE | 2019-07-14 18:30 | NUR ---
ASSUMED CARE FROM Wendy KINNEY NO QUESTIONS OR CONCERNS AFTER ASSUMING CARE
[2019-07-14] MEDS: insulin glargine (Lantus) pen - multi-dose SQ SCH (21:00)
[2019-07-14] MEDS: atorvastatin 20mg tablet PO SCH (21:37)
[2019-07-15] VITALS (25 sets, daily range): BP systolic 76–114; BP diastolic 44–90
--- NOTE | 2019-07-15 01:30 | NUR ---
PATIENT WAKING UP AND THRASHING AROUND, INCREASED SEDATION PATIENT IS OBSERVABLY RESTING WELL AFTER TITRATING SEDATION UP,RR EVEN UN LABORED NO OBSERVABLE S/S OF ACUTE STRESS AT THIS TIME
[2019-07-15] MEDS: mineral oil/petrolatum ophthal oint EACHEYE SCH ×4 (02:49→20:16)
[2019-07-15 03:01] LABS: ABG BASE EXCESS -4.1 mmol/L (-2.0-3.0); ABG OXYGEN SATURATION 91.2 % (95-98); ABG PCO2 (T) 28.9 mmHg (35.0-45.0); ABG PH (T) 7.439 (7.350-7.450); ABG PO2 (T) 60.5 mmHg (83-108); FCOHb 0.3 % (0.5-1.5); FMetHb 0.1 % (0.3-1.12); FO2Hb 90.8 % (94-100); MINUTE VOLUME 9 L/min; PEEP 5 cm H2O; RESPIRATORY RATE 20 b/min; RESPIRATORY RATE (OBSERVED) 22 b/min; TIDAL VOLUME 400 mL; TOTAL HEMOGLOBIN 9.2 G/dl (12.0-16.0)
[2019-07-15] MEDS: amiodarone/D5 360MG/200ML BAG 200 ML IV SCH ×4 (03:04→19:42)
[2019-07-15 03:32] LABS: BASOPHILS # (AUTO) 0.1 X10'3 (0-0.2); BASOPHILS % (AUTO) 0.5 % (0-1); EOSINOPHILS # (AUTO) 0.2 X10'3 (0-0.9); EOSINOPHILS % (AUTO) 1.4 % (0-6); HEMOGLOBIN 8.1 g/dl (12.0-16.0); LYMPHOCYTES # (AUTO) 1.8 X10'3 (1.1-4.8); LYMPHOCYTES % (AUTO) 14.7 % (21-51); MEAN CORPUSCULAR HEMOGLOBIN 30.3 PG (27.0-31.0); MEAN CORPUSCULAR HGB CONC 33.8 g/dL (33.0-36.5); MEAN CORPUSCULAR VOLUME 89.7 FL (78-98); MEAN PLATELET VOLUME 9.7 FL (7.4-10.4); MONOCYTES # (AUTO) 1.4 X10'3 (0-0.9); MONOCYTES % (AUTO) 11.7 % (2-12); NEUTROPHILS # (AUTO) 8.9 X10'3 (1.8-7.7); NEUTROPHILS % (AUTO) 71.7 % (42-75); PLATELET COUNT 130 X10'3 (140-440); RED BLOOD COUNT 2.67 X10'6 (4.20-5.60); RED CELL DISTRIBUTION WIDTH 13.4 % (11.5-14.5); WHITE BLOOD COUNT 12.3 X10'3 (4.5-11.0)
[2019-07-15 03:39] LABS: PARTIAL THROMBOPLASTIN TIME 29 SECONDS (22-32)
[2019-07-15 03:42] LABS: ALANINE AMINOTRANSFERASE 43 U/L (12-78); ALBUMIN 1.9 G/DL (3.4-5.0); ALBUMIN/GLOBULIN RATIO 0.5 (1.1-1.5); ALKALINE PHOSPHATASE 57 IU/L (46-116); ANION GAP 9 (8-16); ASPARTATE AMINO TRANSFERASE 47 U/L (10-37); BILIRUBIN,TOTAL 0.3 MG/DL (0.1-1.0); BLOOD UREA NITROGEN 15 MG/DL (7-18); BUN/CREATININE RATIO 27.8 (6.6-38.0); CALCIUM 7.8 MG/DL (8.5-10.1); CHLORIDE 104 MMOL/L (99-107); CREATININE 0.54 MG/DL (0.40-0.90); GLUCOSE 94 MG/DL (70-104); MAGNESIUM 1.6 MG/DL (1.5-2.4); PHOSPHORUS 2.4 MG/DL (2.3-4.5); POTASSIUM 3.7 MMOL/L (3.5-5.1); SODIUM 135 MMOL/L (135-145); TOTAL CARBON DIOXIDE 22.3 MMOL/L (24-32); TOTAL PROTEIN 5.5 G/DL (6.4-8.2); eGFR > 90 ML/MIN
--- NOTE | 2019-07-15 04:00 | NUR ---
patient is in bed eyes closed rr even un labored no observable s/s of acute stress at this time
--- NOTE | 2019-07-15 05:46 | NUR ---
patient in bed appears to not be restless, rr even un labored no observable s/s of acute stress at this time
--- NOTE | 2019-07-15 06:34 | NUR ---
sbar to cem rehman no questions or concerns after assuming care
[2019-07-15] MEDS: clopidogrel 75mg tablet OGT SCH (08:15)
[2019-07-15] MEDS: lactobacillus rhamnosus 10,000 MMU CELLS/CAPSULE PO SCH ×2 (08:16→20:16)
[2019-07-15] MEDS: aspirin 81mg tab.chew OGT SCH (08:16)
[2019-07-15] MEDS: docusate sodium 100mg/10ml UD cup OGT SCH ×2 (08:16→20:16)
[2019-07-15] MEDS: chloestyramine/aspartame 4gm packet PO SCH ×2 (08:16→20:16)
[2019-07-15] MEDS: CefTRIAXone/D5W-Rocephin 1gm 50 ML IV SCH (08:17)
[2019-07-15] MEDS: pantoprazole 40 MG vial IV SCH (08:17)
[2019-07-15] MEDS: dexmedetomidin/NS 400mcg/100ml 100 ML IV SCH (12:45)
--- NOTE | 2019-07-15 18:27 | NUR ---
assumed care from Geovanna KINNEY no questions or concerns after SBAR
--- NOTE | 2019-07-15 19:05 | NUR ---
day shift rn reported patients hr was decreasing and that they turned off the amio drip, brought that to october ATMOSPHERIC TECHNICIAN attention and she verbally stated " leave off the drip but we will keep it active if we need it and tomorrow possibly po amio
[2019-07-15] MEDS: insulin glargine (Lantus) pen - multi-dose SQ SCH (21:00)
--- NOTE | 2019-07-15 21:00 | NUR ---
patient needed sedation started due to overbreathing the vent and "thrashing all around." when doing nursing care for the patient
[2019-07-15] MEDS: atorvastatin 20mg tablet PO SCH (21:35)
--- NOTE | 2019-07-15 23:28 | NUR ---
patient in bed eyes closed rr even un labored, during bath time patient gets worked up and starts overbreathing the vent, patient needed sedation due to restlessness
[2019-07-16] VITALS (26 sets, daily range): BP systolic 73–151; BP diastolic 40–97
[2019-07-16] MEDS: normal saline 1000ml 1,000 ML IV SCH (00:06)
[2019-07-16] MEDS: dexmedetomidin/NS 400mcg/100ml 100 ML IV SCH ×2 (00:23→20:38)
--- NOTE | 2019-07-16 01:20 | NUR ---
patient still restless with nursing care, takes patient 20-30 minutes to go back to resting from bucking the vent and moving all four extremities to try and wiggle out of bed, at this time the patient appears to be at rest, rr even un labored eyes are closed blankets on no observable s/s of acute stress at this time after patient care
[2019-07-16] MEDS: FENTANYL-0.9 % NACL/PF 100 ML IV PRN (01:26)
[2019-07-16] MEDS: amiodarone/D5 360MG/200ML BAG 200 ML IV SCH ×2 (01:46→07:50)
[2019-07-16] MEDS: midazolam 100mg in NS 100ml 100 ML IV PRN ×2 (02:34→19:38)
[2019-07-16] MEDS: mineral oil/petrolatum ophthal oint EACHEYE SCH ×4 (02:34→20:11)
[2019-07-16 02:35] LABS: BASOPHILS % (AUTO) 0.4 % (0-1); EOSINOPHILS # (AUTO) 0.2 X10'3 (0-0.9); EOSINOPHILS % (AUTO) 1.5 % (0-6); HEMATOCRIT 23.5 % (35.0-45.0); HEMOGLOBIN 7.8 g/dl (12.0-16.0); LYMPHOCYTES # (AUTO) 1.6 X10'3 (1.1-4.8); LYMPHOCYTES % (AUTO) 14.1 % (21-51); MEAN CORPUSCULAR HEMOGLOBIN 30.1 PG (27.0-31.0); MEAN CORPUSCULAR HGB CONC 33.4 g/dL (33.0-36.5); MEAN CORPUSCULAR VOLUME 90.2 FL (78-98); MEAN PLATELET VOLUME 9.5 FL (7.4-10.4); MONOCYTES # (AUTO) 0.8 X10'3 (0-0.9); PLATELET COUNT 151 X10'3 (140-440); RED BLOOD COUNT 2.61 X10'6 (4.20-5.60); RED CELL DISTRIBUTION WIDTH 13.4 % (11.5-14.5); WHITE BLOOD COUNT 11.6 X10'3 (4.5-11.0)
[2019-07-16 02:41] LABS: PARTIAL THROMBOPLASTIN TIME 28 SECONDS (22-32)
[2019-07-16 02:48] LABS: ALANINE AMINOTRANSFERASE 36 U/L (12-78); ALBUMIN 1.9 G/DL (3.4-5.0); ALBUMIN/GLOBULIN RATIO 0.5 (1.1-1.5); ALKALINE PHOSPHATASE 55 IU/L (46-116); ANION GAP 9 (8-16); ASPARTATE AMINO TRANSFERASE 28 U/L (10-37); BILIRUBIN,TOTAL 0.4 MG/DL (0.1-1.0); BLOOD UREA NITROGEN 20 MG/DL (7-18); BUN/CREATININE RATIO 33.9 (6.6-38.0); CALCIUM 7.8 MG/DL (8.5-10.1); CHLORIDE 106 MMOL/L (99-107); CREATININE 0.59 MG/DL (0.40-0.90); GLUCOSE 122 MG/DL (70-104); MAGNESIUM 1.7 MG/DL (1.5-2.4); POTASSIUM 3.8 MMOL/L (3.5-5.1); SODIUM 137 MMOL/L (135-145); TOTAL CARBON DIOXIDE 21.6 MMOL/L (24-32); TOTAL PROTEIN 5.6 G/DL (6.4-8.2); eGFR > 90 ML/MIN
--- NOTE | 2019-07-16 03:30 | NUR ---
PATIENT APPEARS TO BE A LOT MORE CALMER WITH SEDATION, PATIENT IN BED EYES CLOSED RR EVEN UN LABORED NO OBSERVABLE S/S OF ACUTE STRESS AT THIS TIME
[2019-07-16 03:31] LABS: ABG BASE EXCESS -4.7 mmol/L (-2.0-3.0); ABG HCO3 18.3 mmol/L (22.0-26.0); ABG OXYGEN SATURATION 95.8 % (95-98); ABG PCO2 (T) 26.6 mmHg (35.0-45.0); ABG PH (T) 7.456 (7.350-7.450); ABG PO2 (T) 77.2 mmHg (83-108); ALLEN'S TEST Positive; FCOHb 0.1 % (0.5-1.5); FMetHb 0.1 % (0.3-1.12); FO2Hb 95.6 % (94-100); MINUTE VOLUME 9 L/min; PATIENT TEMPERATURE 37.1; PEEP 5 cm H2O; RESPIRATORY RATE 20 b/min; RESPIRATORY RATE (OBSERVED) 21 b/min; TIDAL VOLUME 400 mL; TOTAL HEMOGLOBIN 8.6 G/dl (12.0-16.0)
--- NOTE | 2019-07-16 05:18 | NUR ---
TURNED THE VERSED OFF, PATIENTS RR EVEN UN LABORED NO OBSERVABLE S/S OF ACUTE STRESS AT THIS TIME
--- NOTE | 2019-07-16 05:58 | NUR ---
PATIENT TOLERATED CHEST X RAY WELL THIS A.M. PATIENT IN BED EYES CLOSED RR EVEN UN LABORED NO OBSERVABLE S/S OF ACUTE STRESS AT THIS TIME
--- NOTE | 2019-07-16 06:34 | NUR ---
SBAR TO MAURICIO KINNEY NO QUESTIONS OR CONCERNS AFTER ASSUMING CARE
[2019-07-16] MEDS: lactobacillus rhamnosus 10,000 MMU CELLS/CAPSULE PO SCH ×2 (08:24→20:11)
[2019-07-16] MEDS: docusate sodium 100mg/10ml UD cup OGT SCH ×2 (08:24→20:11)
[2019-07-16] MEDS: CefTRIAXone/D5W-Rocephin 1gm 50 ML IV SCH (08:24)
[2019-07-16] MEDS: chloestyramine/aspartame 4gm packet PO SCH ×2 (08:24→20:11)
[2019-07-16] MEDS: acetaminophen 325mg/10.15ml oral unit dose solution OGT PRN ×2 (08:24→23:12)
[2019-07-16] MEDS: pantoprazole 40 MG vial IV SCH (08:24)
[2019-07-16] MEDS: aspirin 81mg tab.chew OGT SCH (08:24)
[2019-07-16] MEDS: clopidogrel 75mg tablet OGT SCH (08:24)
--- NOTE | 2019-07-16 10:38 | NUR ---
Problems reprioritized. Patient report given, questions answered & plan of care reviewed with Akosua KINNEY.
--- NOTE | 2019-07-16 10:38 | NUR ---
Amiodarone gtt off since yesterday; Per Dr. Hamilton, no orders to admin PO
[2019-07-16] MEDS ORDERED: normal saline 500ml IV soln 1,000 ML IV ONE (10:50)
[2019-07-16 12:27] LABS: BFSOURCE LEFT PLEURAL FLD; PLEURAL FLUID PH 7.465 (7.63-7.65)
[2019-07-16 13:02] LABS: GLUCOSE,BODY FLUID 123 MG/DL; LDH,BODY FLUID 141 U/L
[2019-07-16 13:19] LABS: EOSINOPHILS,BODY FLUID 1 %; LYMPHOCYTES,BODY FLUID 18 %; MONOCYTES,BODY FLUID 4 %; NEUTROPHILS,BODY FLUID 77 %
[2019-07-16 13:20] LABS: BF WBC COUNT 73 /CU MM (0-1000); BFAPPEAR HAZY; BFCOLOR YELLOW; BFVOLUME 44 ML
[2019-07-16 13:21] LABS: BF MESOTHELIAL CELLS FEW; BF RBC COUNT 640 /CU MM
[2019-07-16 13:28] LABS: TOTAL PROTEIN,BODY FLUID < 2.0 G/DL
[2019-07-16 14:01] LABS: LYMPHOCYTES,BODY FLUID 18 %; MONOCYTES,BODY FLUID 2 %; NEUTROPHILS,BODY FLUID 80 %
[2019-07-16 14:03] LABS: BF WBC COUNT 24 /CU MM (0-1000); BFAPPEAR CLOUDY; BFCOLOR PINK; BFVOLUME 8 ML
[2019-07-16 14:04] LABS: BF MESOTHELIAL CELLS FEW; BF RBC COUNT 6575 /CU MM
[2019-07-16 14:20] LABS: GLUCOSE,BODY FLUID 122 MG/DL; LDH,BODY FLUID 147 U/L
[2019-07-16 14:41] LABS: TOTAL PROTEIN,BODY FLUID < 2.0 G/DL
[2019-07-16] MEDS ORDERED: OLANZapine 2.5MG tablet PO SCH (15:00)
--- NOTE | 2019-07-16 15:14 | NUR ---
pt. breathing at rate 55 and above per minute, agitated, provider Dr. Hamilton made aware. 14mg of Versed bolus given. on 100 mcg of fentanyl, versed at 6mg/hour and precedex at .5mcg/kg/hr. Oxazepam PRN given. No new orders noted. Seroquel requested per this RN.
[2019-07-16] MEDS: olanzapine 10mg tablet PO SCH (16:51)
--- NOTE | 2019-07-16 18:30 | NUR ---
Patient in room ICU 2042. I have received report from Akosua KINNEY, and had the opportunity to ask questions and assume patient care.
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
--- NOTE | 2019-07-16 19:30 | NUR ---
PT intubated and mechanically vented, tolerating setting well. O2 sat >97%. PT is sedated with Versed currently running @ 3mg/hr and Precedex @ 0.2mcg/hr. PT wiggling all over bed, will titrated the sedated as tolerated by PT. VSS. Bilat CT's with serous fluid noted in tubing. Zuluaga draining to gravity. Bed is locked and low. Bilat soft wrist restraints in place and secure. Will continue to monitor.
[2019-07-16] MEDS: insulin glargine (Lantus) pen - multi-dose SQ SCH (20:11)
[2019-07-16] MEDS: atorvastatin 20mg tablet PO SCH (20:11)
--- NOTE | 2019-07-16 22:30 | NUR ---
PT continues to wiggle all over bed. Sedation titrated up each Hr. RR at times gets up into the 50's when agitated. Versed now running @ 6mg/hr, Fentanyl turned back on @ 25mcg/hr and Precedex @ 0.5mcg/hr. PT is tolerating well. VSS. Appears to be more restful. Bed is locked and low. Bilat soft wrist restraint in place and secure. Will continue to monitor.
[2019-07-17] VITALS (26 sets, daily range): BP systolic 76–136; BP diastolic 45–67
--- NOTE | 2019-07-17 00:30 | NUR ---
PT resting and is much less agitated, VSS. Bed is locked and low. Bilat soft wrist restraints in place and secure. Will continue to monitor.
[2019-07-17] MEDS: FENTANYL-0.9 % NACL/PF 100 ML IV PRN (00:38)
[2019-07-17] MEDS: mineral oil/petrolatum ophthal oint EACHEYE SCH ×4 (03:23→20:00)
[2019-07-17 03:27] LABS: BASOPHILS # (AUTO) 0.1 X10'3 (0-0.2); BASOPHILS % (AUTO) 0.7 % (0-1); EOSINOPHILS # (AUTO) 0.2 X10'3 (0-0.9); EOSINOPHILS % (AUTO) 1.3 % (0-6); HEMOGLOBIN 7.3 g/dl (12.0-16.0); LYMPHOCYTES # (AUTO) 2.1 X10'3 (1.1-4.8); LYMPHOCYTES % (AUTO) 15.4 % (21-51); MEAN CORPUSCULAR HEMOGLOBIN 30.8 PG (27.0-31.0); MEAN CORPUSCULAR HGB CONC 34.1 g/dL (33.0-36.5); MEAN CORPUSCULAR VOLUME 90.4 FL (78-98); MEAN PLATELET VOLUME 9.9 FL (7.4-10.4); MONOCYTES # (AUTO) 1.4 X10'3 (0-0.9); MONOCYTES % (AUTO) 10.7 % (2-12); NEUTROPHILS # (AUTO) 9.6 X10'3 (1.8-7.7); NEUTROPHILS % (AUTO) 71.9 % (42-75); PLATELET COUNT 192 X10'3 (140-440); RED BLOOD COUNT 2.38 X10'6 (4.20-5.60); RED CELL DISTRIBUTION WIDTH 13.3 % (11.5-14.5); WHITE BLOOD COUNT 13.4 X10'3 (4.5-11.0)
[2019-07-17 03:38] LABS: PARTIAL THROMBOPLASTIN TIME 26 SECONDS (22-32)
[2019-07-17 03:41] LABS: ALANINE AMINOTRANSFERASE 32 U/L (12-78); ALBUMIN 1.7 G/DL (3.4-5.0); ALBUMIN/GLOBULIN RATIO 0.5 (1.1-1.5); ALKALINE PHOSPHATASE 57 IU/L (46-116); ANION GAP 10 (8-16); BILIRUBIN,TOTAL 0.5 MG/DL (0.1-1.0); BLOOD UREA NITROGEN 18 MG/DL (7-18); BUN/CREATININE RATIO 30.5 (6.6-38.0); CALCIUM 7.7 MG/DL (8.5-10.1); CHLORIDE 109 MMOL/L (99-107); CREATININE 0.59 MG/DL (0.40-0.90); GLUCOSE 92 MG/DL (70-104); MAGNESIUM 1.8 MG/DL (1.5-2.4); SODIUM 140 MMOL/L (135-145); TOTAL CARBON DIOXIDE 21.5 MMOL/L (24-32); TOTAL PROTEIN 5.3 G/DL (6.4-8.2); eGFR > 90 ML/MIN
[2019-07-17 03:42] LABS: ASPARTATE AMINO TRANSFERASE 37 U/L (10-37); POTASSIUM 3.7 MMOL/L (3.5-5.1)
[2019-07-17 03:45] LABS: HEMATOCRIT 21.5 % (35.0-45.0)
[2019-07-17 03:56] LABS: ABG BASE EXCESS -4.3 mmol/L (-2.0-3.0); ABG PCO2 (T) 25.5 mmHg (35.0-45.0); ABG PO2 (T) 97.4 mmHg (83-108); ALLEN'S TEST Positive; FCOHb 0.3 % (0.5-1.5); FMetHb 0.1 % (0.3-1.12); FO2Hb 96.6 % (94-100); MINUTE VOLUME 10 L/min; PATIENT TEMPERATURE 38.3; PEEP 5 cm H2O; RESPIRATORY RATE 20 b/min; RESPIRATORY RATE (OBSERVED) 24 b/min; TIDAL VOLUME 400 mL; TOTAL HEMOGLOBIN 9.2 G/dl (12.0-16.0)
--- NOTE | 2019-07-17 04:25 | NUR ---
Received critical HCT of 21.5. MARI Phan notified. Order received to draw new type and screen and to give 1 unit of PRBC's. Emilie also informed that PT does not have signed consent in chart. D/T not having signed consent and not being emergent, Informed consent to be received today by MD. Will continue to monitor.
[2019-07-17 04:26] LABS: TOTAL CELLS COUNTED 100
[2019-07-17 04:27] LABS: BANDS% (MANUAL) 1 % (0-10); EOSINOPHILS % (MANUAL) 2 % (0-6); LYMPHOCYTES % (MANUAL) 16 % (21-51); MONOCYTES % (MANUAL) 6 % (2-12); NEUTROPHILS % (MANUAL) 74 % (42-75); NUCLEATED RED BLOOD CELLS 3 /100WBC (0-0); PLATELET ESTIMATE NORMAL; POLYCHROMASIA 1+
--- NOTE | 2019-07-17 06:45 | NUR ---
Problems reprioritized. Patient report given, questions answered & plan of care reviewed with Abi KINNEY.
--- NOTE | 2019-07-17 07:34 | NUR ---
I have reviewed and agree with all medications administered and interventions performed by [facility] Student Vincent Gil Addendum: 07/17/19 at 0735 by Lynnette Torres RT Amended: Links added.
[2019-07-17] MEDS: clopidogrel 75mg tablet OGT SCH (08:22)
[2019-07-17] MEDS: olanzapine 10mg tablet PO SCH (08:22)
[2019-07-17] MEDS: aspirin 81mg tab.chew OGT SCH (08:22)
[2019-07-17] MEDS: docusate sodium 100mg/10ml UD cup OGT SCH ×2 (08:22→20:01)
[2019-07-17] MEDS: pantoprazole 40 MG vial IV SCH (08:22)
[2019-07-17] MEDS: chloestyramine/aspartame 4gm packet PO SCH ×2 (08:22→20:01)
[2019-07-17] MEDS: lactobacillus rhamnosus 10,000 MMU CELLS/CAPSULE PO SCH ×2 (08:22→20:01)
[2019-07-17] MEDS: acetaminophen 325mg/10.15ml oral unit dose solution OGT PRN ×2 (08:23→16:50)
[2019-07-17] MEDS: CefTRIAXone/D5W-Rocephin 1gm 50 ML IV SCH (08:26)
--- NOTE | 2019-07-17 14:45 | NUR ---
Reassessment: Patient is intubated, sedated, tolerating tube feeding at goal rate. Gastric residual volume under 100 ml today. Patient is receiving colace routine BID. No change in nutrition intervention. Pt admit with CP, NSTEMI, cardiac arrest, acute respiratory failure, and metabolic acidosis. Will continue to follow. Recommendations: 1) Continue tube feeding per OGTF using Vital AF at goal rate 55 mL/hr; to provide 1320ml fluid, 1584 kcals, 1069ml free water, and 100g protein. 2) continue additional water flush 100ml Q6 3) prealbumin q /;daily weights 4) Once extubated advance diet as medically indicated to heart healthy 5) monitor TF tolerance Addendum: 07/17/19 at [address] Amended: Links added.
[2019-07-17] MEDS: dexmedetomidin/NS 400mcg/100ml 100 ML IV SCH ×2 (17:37→22:55)
[2019-07-17] MEDS: normal saline 1000ml 1,000 ML IV SCH (17:38)
[2019-07-17] MEDS ORDERED: normal saline 1000ml 1,000 ML IV SCH (18:25)
--- NOTE | 2019-07-17 18:34 | NUR ---
Patient in room ICU 2042. I have received report from Abi KINNEY, and had the opportunity to ask questions and assume patient care.
--- NOTE | 2019-07-17 19:35 | NUR ---
PT intubated and mechanically vented, tolerating setting well. O2 sat >97%. PT is sedated with Versed currently running @ 2mg/hr and Precedex is turned off currently d/t HR of 60 and low BP, Fentanyl running @ 25mcg/hr. PT is resting comfortably at this time. 1L Bolus that previous nurse started just finished, minimal effect on BP thus far. Bilat CT's with serous fluid noted in tubing. Zuluaga draining to gravity. PT niece is at bedside. Bed is locked and low. Bilat soft wrist restraints in place and secure. Will continue to monitor.
[2019-07-17] MEDS: atorvastatin 20mg tablet PO SCH (20:01)
[2019-07-17] MEDS: midazolam 100mg in NS 100ml 100 ML IV PRN (20:47)
[2019-07-17] MEDS: insulin glargine (Lantus) pen - multi-dose SQ SCH (21:00)
--- NOTE | 2019-07-17 23:00 | NUR ---
PT resting with no s/s of distress noted at this time. VSS. Bed is locked and low. Bilat soft wrist restraints in place and secure. Will continue to monitor.
[2019-07-18] VITALS (23 sets, daily range): BP systolic 80–111; BP diastolic 49–67
[2019-07-18] MEDS: mineral oil/petrolatum ophthal oint EACHEYE SCH ×4 (02:00→20:26)
[2019-07-18 03:13] LABS: BASOPHILS # (AUTO) 0.1 X10'3 (0-0.2); BASOPHILS % (AUTO) 0.7 % (0-1); EOSINOPHILS # (AUTO) 0.3 X10'3 (0-0.9); EOSINOPHILS % (AUTO) 2.6 % (0-6); HEMATOCRIT 25.8 % (35.0-45.0); HEMOGLOBIN 8.7 g/dl (12.0-16.0); LYMPHOCYTES % (AUTO) 14.8 % (21-51); MEAN CORPUSCULAR HEMOGLOBIN 30.9 PG (27.0-31.0); MEAN CORPUSCULAR HGB CONC 33.8 g/dL (33.0-36.5); MEAN CORPUSCULAR VOLUME 91.3 FL (78-98); MEAN PLATELET VOLUME 9.3 FL (7.4-10.4); MONOCYTES # (AUTO) 1.1 X10'3 (0-0.9); MONOCYTES % (AUTO) 8.7 % (2-12); NEUTROPHILS # (AUTO) 9.6 X10'3 (1.8-7.7); NEUTROPHILS % (AUTO) 73.2 % (42-75); PLATELET COUNT 204 X10'3 (140-440); RED BLOOD COUNT 2.82 X10'6 (4.20-5.60); RED CELL DISTRIBUTION WIDTH 13.8 % (11.5-14.5); WHITE BLOOD COUNT 13.2 X10'3 (4.5-11.0)
[2019-07-18 03:23] LABS: ALANINE AMINOTRANSFERASE 42 U/L (12-78); ALBUMIN 1.6 G/DL (3.4-5.0); ALBUMIN/GLOBULIN RATIO 0.4 (1.1-1.5); ALKALINE PHOSPHATASE 66 IU/L (46-116); ANION GAP 7 (8-16); ASPARTATE AMINO TRANSFERASE 44 U/L (10-37); BILIRUBIN,TOTAL 0.4 MG/DL (0.1-1.0); BLOOD UREA NITROGEN 17 MG/DL (7-18); BUN/CREATININE RATIO 34.7 (6.6-38.0); CALCIUM 7.7 MG/DL (8.5-10.1); CHLORIDE 109 MMOL/L (99-107); CREATININE 0.49 MG/DL (0.40-0.90); GLUCOSE 91 MG/DL (70-104); MAGNESIUM 1.7 MG/DL (1.5-2.4); PARTIAL THROMBOPLASTIN TIME 26 SECONDS (22-32); POTASSIUM 3.7 MMOL/L (3.5-5.1); SODIUM 139 MMOL/L (135-145); TOTAL PROTEIN 5.5 G/DL (6.4-8.2); eGFR > 90 ML/MIN
[2019-07-18 03:30] LABS: ABG BASE EXCESS -4.2 mmol/L (-2.0-3.0); ABG HCO3 18.9 mmol/L (22.0-26.0); ABG OXYGEN SATURATION 96.5 % (95-98); ABG PCO2 (T) 29.2 mmHg (35.0-45.0); ABG PH (T) 7.433 (7.350-7.450); ALLEN'S TEST Positive; FCOHb 0.1 % (0.5-1.5); FMetHb 0.1 % (0.3-1.12); FO2Hb 96.3 % (94-100); MINUTE VOLUME 11 L/min; PATIENT TEMPERATURE 38.2; PEEP 5 cm H2O; RESPIRATORY RATE 20 b/min; RESPIRATORY RATE (OBSERVED) 27 b/min; TIDAL VOLUME 400 mL; TOTAL HEMOGLOBIN 9.4 G/dl (12.0-16.0)
--- NOTE | 2019-07-18 05:00 | NUR ---
Performed personal hygiene. PT is much more awake and appropriate than in previous shifts. PT is opening her eyes to name, nods head yes/no to simple questions and is following commands. PT assisted nursing in turning as well. Precedex has been off the entirety of this sift, Fentanyl running @ 50mcg/hr and Versed running @ 3mg and PT has tolerated very well. Bed is locked and low. Bilat soft wrist restraints in place and secure. Will continue to monitor.
[2019-07-18] MEDS: FENTANYL-0.9 % NACL/PF 100 ML IV PRN (05:50)
--- NOTE | 2019-07-18 06:36 | NUR ---
Problems reprioritized. Patient report given, questions answered & plan of care reviewed with Abi KINNEY.
[2019-07-18 06:51] LABS: TOTAL CELLS COUNTED 100
[2019-07-18 06:52] LABS: PLATELET ESTIMATE NORMAL; POLYCHROMASIA FEW
[2019-07-18] MEDS: pantoprazole 40 MG vial IV SCH (09:29)
[2019-07-18] MEDS: CefTRIAXone/D5W-Rocephin 1gm 50 ML IV SCH (09:30)
[2019-07-18] MEDS: olanzapine 10mg tablet PO SCH (09:30)
[2019-07-18] MEDS: aspirin 81mg tab.chew OGT SCH (09:30)
[2019-07-18] MEDS: clopidogrel 75mg tablet OGT SCH (09:30)
[2019-07-18] MEDS: lactobacillus rhamnosus 10,000 MMU CELLS/CAPSULE PO SCH ×2 (09:30→20:25)
[2019-07-18] MEDS: chloestyramine/aspartame 4gm packet PO SCH ×2 (09:31→20:25)
[2019-07-18] MEDS: docusate sodium 100mg/10ml UD cup OGT SCH ×2 (10:35→20:25)
[2019-07-18] MEDS: dexmedetomidin/NS 400mcg/100ml 100 ML IV SCH (14:05)
--- NOTE | 2019-07-18 18:30 | NUR ---
Patient in room ICU 2042. I have received report and had the opportunity to ask questions and assume patient care.
--- NOTE | 2019-07-18 19:43 | NUR ---
pt is intubated and sedated. pt opens eyes spontaneously and follows commands. lung sounds are diminished bilaterally. bilateral chest tubes patent and draining serous fluid with no crepitus present at the insertion site. tube feed going at 55. bowel sounds normoactive in all four quadrants. sheets patent and draining. will continue to monitor.
[2019-07-18] MEDS: atorvastatin 20mg tablet PO SCH (20:25)
[2019-07-18] MEDS: insulin glargine (Lantus) pen - multi-dose SQ SCH (21:00)
[2019-07-19] VITALS (24 sets, daily range): BP systolic 80–115; BP diastolic 44–64
[2019-07-19] MEDS: mineral oil/petrolatum ophthal oint EACHEYE SCH ×4 (02:11→20:28)
[2019-07-19] MEDS: FENTANYL-0.9 % NACL/PF 100 ML IV PRN (02:11)
[2019-07-19] MEDS: midazolam 100mg in NS 100ml 100 ML IV PRN (02:33)
[2019-07-19 02:55] LABS: BASOPHILS # (AUTO) 0.1 X10'3 (0-0.2); BASOPHILS % (AUTO) 0.6 % (0-1); EOSINOPHILS # (AUTO) 0.4 X10'3 (0-0.9); EOSINOPHILS % (AUTO) 3.3 % (0-6); HEMATOCRIT 26.1 % (35.0-45.0); HEMOGLOBIN 8.9 g/dl (12.0-16.0); LYMPHOCYTES # (AUTO) 1.9 X10'3 (1.1-4.8); LYMPHOCYTES % (AUTO) 15.2 % (21-51); MEAN CORPUSCULAR HEMOGLOBIN 30.9 PG (27.0-31.0); MEAN CORPUSCULAR HGB CONC 33.9 g/dL (33.0-36.5); MEAN CORPUSCULAR VOLUME 91.1 FL (78-98); MONOCYTES # (AUTO) 0.9 X10'3 (0-0.9); MONOCYTES % (AUTO) 7.2 % (2-12); NEUTROPHILS # (AUTO) 9.2 X10'3 (1.8-7.7); NEUTROPHILS % (AUTO) 73.7 % (42-75); PLATELET COUNT 247 X10'3 (140-440); RED BLOOD COUNT 2.87 X10'6 (4.20-5.60); RED CELL DISTRIBUTION WIDTH 13.5 % (11.5-14.5); WHITE BLOOD COUNT 12.5 X10'3 (4.5-11.0)
[2019-07-19 03:00] LABS: PARTIAL THROMBOPLASTIN TIME 27 SECONDS (22-32)
[2019-07-19 03:03] LABS: ALANINE AMINOTRANSFERASE 38 U/L (12-78); ALBUMIN 1.6 G/DL (3.4-5.0); ALBUMIN/GLOBULIN RATIO 0.4 (1.1-1.5); ALKALINE PHOSPHATASE 70 IU/L (46-116); ANION GAP 6 (8-16); ASPARTATE AMINO TRANSFERASE 32 U/L (10-37); BILIRUBIN,TOTAL 0.4 MG/DL (0.1-1.0); BLOOD UREA NITROGEN 16 MG/DL (7-18); BUN/CREATININE RATIO 35.6 (6.6-38.0); CALCIUM 8.1 MG/DL (8.5-10.1); CHLORIDE 107 MMOL/L (99-107); CREATININE 0.45 MG/DL (0.40-0.90); GLUCOSE 86 MG/DL (70-104); MAGNESIUM 1.8 MG/DL (1.5-2.4); PHOSPHORUS 3.3 MG/DL (2.3-4.5); POTASSIUM 3.7 MMOL/L (3.5-5.1); SODIUM 139 MMOL/L (135-145); TOTAL CARBON DIOXIDE 25.6 MMOL/L (24-32); TOTAL PROTEIN 5.4 G/DL (6.4-8.2); eGFR > 90 ML/MIN
[2019-07-19 03:11] LABS: ABG BASE EXCESS -2.5 mmol/L (-2.0-3.0); ABG HCO3 20.4 mmol/L (22.0-26.0); ABG OXYGEN SATURATION 93.1 % (95-98); ABG PCO2 (T) 30.6 mmHg (35.0-45.0); ABG PH (T) 7.445 (7.350-7.450); ABG PO2 (T) 70.5 mmHg (83-108); ALLEN'S TEST Positive; FCOHb 0.3 % (0.5-1.5); FMetHb 0.1 % (0.3-1.12); FO2Hb 92.7 % (94-100); MINUTE VOLUME 13 L/min; PATIENT TEMPERATURE 37.9; PEEP 5 cm H2O; RESPIRATORY RATE 20 b/min; RESPIRATORY RATE (OBSERVED) 28 b/min; TIDAL VOLUME 400 mL; TOTAL HEMOGLOBIN 11.2 G/dl (12.0-16.0)
[2019-07-19 04:00] LABS: TOTAL CELLS COUNTED 100
[2019-07-19 04:01] LABS: PLATELET ESTIMATE NORMAL
[2019-07-19 04:03] LABS: POLYCHROMASIA FEW
[2019-07-19] MEDS: dexmedetomidin/NS 400mcg/100ml 100 ML IV SCH ×2 (05:15→20:25)
[2019-07-19] MEDS: lactobacillus rhamnosus 10,000 MMU CELLS/CAPSULE PO SCH ×2 (07:04→20:28)
[2019-07-19] MEDS: aspirin 81mg tab.chew OGT SCH (07:04)
[2019-07-19] MEDS: olanzapine 10mg tablet PO SCH (07:04)
[2019-07-19] MEDS: pantoprazole 40 MG vial IV SCH (07:04)
[2019-07-19] MEDS: clopidogrel 75mg tablet OGT SCH (07:04)
[2019-07-19] MEDS: CefTRIAXone/D5W-Rocephin 1gm 50 ML IV SCH (07:04)
[2019-07-19] MEDS: docusate sodium 100mg/10ml UD cup OGT SCH ×2 (07:04→20:28)
[2019-07-19] MEDS: chloestyramine/aspartame 4gm packet PO SCH ×2 (07:05→20:28)
[2019-07-19] MEDS: hydrocortisone sod succ/PF 100mg/2ml inj. IV SCH ×2 (13:50→15:41)
--- NOTE | 2019-07-19 13:57 | NUR ---
F/u: Pt no BM in 8 days; RD d/w RN regarding opioid antagonist vs promotility per MD approval. Reassessment: Patient is intubated, sedated, tolerating tube feeding at goal rate. Gastric residual volume under 100 ml today. Patient is receiving colace routine BID. No change in nutrition intervention. Pt admit with CP, NSTEMI, cardiac arrest, acute respiratory failure, and metabolic acidosis. Will continue to follow. Recommendations: 1) Continue tube feeding per OGTF using Vital AF at goal rate 55 mL/hr; to provide 1320ml fluid, 1584 kcals, 1069ml free water, and 100g protein. 2) continue additional water flush 100ml Q6 3) prealbumin q /;daily weights 4) routine bowel care Addendum: 07/19/19 at [address] Amended: Links added.
[2019-07-19 15:45] LABS: OXYGEN SATURATION (MIXED VEN) 72.3 % (60-80); PO2 MIXED VENOUS (TEMP COR) 35.7 mmHg (35-46)
--- NOTE | 2019-07-19 18:45 | NUR ---
Patient in room ICU 2042. I have received report and had the opportunity to ask questions and assume patient care.
--- NOTE | 2019-07-19 20:15 | NUR ---
pt is intubated and sedated. pt opens eyes spontaneously and follows commands. lung sounds are course and diminished bilaterally. bilateral chest tubes patent and draining serous fluid with no crepitus present at the insertion site. tube feed going at 55. bowel sounds normoactive in all four quadrants. sheets patent and draining. will continue to monitor.
[2019-07-19] MEDS: atorvastatin 20mg tablet PO SCH (20:28)
[2019-07-19] MEDS: normal saline 1000ml 1,000 ML IV SCH (20:30)
[2019-07-19] MEDS: insulin glargine (Lantus) pen - multi-dose SQ SCH (21:00)
[2019-07-20] VITALS (21 sets, daily range): BP systolic 73–149; BP diastolic 40–97
[2019-07-20] MEDS: hydrocortisone sod succ/PF 100mg/2ml inj. IV SCH ×3 (00:13→18:10)
[2019-07-20] MEDS: midazolam 100mg in NS 100ml 100 ML IV PRN ×2 (00:15→23:59)
[2019-07-20] MEDS: mineral oil/petrolatum ophthal oint EACHEYE SCH ×4 (02:13→20:00)
[2019-07-20 02:32] LABS: PARTIAL THROMBOPLASTIN TIME 26 SECONDS (22-32)
[2019-07-20 02:36] LABS: ALANINE AMINOTRANSFERASE 37 U/L (12-78); ALBUMIN 1.7 G/DL (3.4-5.0); ALBUMIN/GLOBULIN RATIO 0.4 (1.1-1.5); ALKALINE PHOSPHATASE 79 IU/L (46-116); ANION GAP 5 (8-16); ASPARTATE AMINO TRANSFERASE 31 U/L (10-37); BILIRUBIN,TOTAL 0.5 MG/DL (0.1-1.0); BLOOD UREA NITROGEN 16 MG/DL (7-18); BUN/CREATININE RATIO 29.1 (6.6-38.0); CALCIUM 8.2 MG/DL (8.5-10.1); CHLORIDE 107 MMOL/L (99-107); CREATININE 0.55 MG/DL (0.40-0.90); GLUCOSE 122 MG/DL (70-104); MAGNESIUM 1.8 MG/DL (1.5-2.4); PHOSPHORUS 3.6 MG/DL (2.3-4.5); POTASSIUM 3.8 MMOL/L (3.5-5.1); SODIUM 138 MMOL/L (135-145); TOTAL CARBON DIOXIDE 25.8 MMOL/L (24-32); TOTAL PROTEIN 5.8 G/DL (6.4-8.2); eGFR > 90 ML/MIN
[2019-07-20 03:13] LABS: BASOPHILS % (AUTO) 0.3 % (0-1); EOSINOPHILS % (AUTO) 0.3 % (0-6); HEMATOCRIT 27.2 % (35.0-45.0); HEMOGLOBIN 9.3 g/dl (12.0-16.0); LYMPHOCYTES % (AUTO) 7.4 % (21-51); MEAN CORPUSCULAR HEMOGLOBIN 30.8 PG (27.0-31.0); MEAN CORPUSCULAR HGB CONC 34.1 g/dL (33.0-36.5); MEAN CORPUSCULAR VOLUME 90.4 FL (78-98); MEAN PLATELET VOLUME 8.6 FL (7.4-10.4); MONOCYTES # (AUTO) 0.3 X10'3 (0-0.9); MONOCYTES % (AUTO) 2.5 % (2-12); NEUTROPHILS # (AUTO) 11.7 X10'3 (1.8-7.7); NEUTROPHILS % (AUTO) 89.5 % (42-75); PLATELET COUNT 315 X10'3 (140-440); RED BLOOD COUNT 3.01 X10'6 (4.20-5.60); RED CELL DISTRIBUTION WIDTH 13.9 % (11.5-14.5); WHITE BLOOD COUNT 13.1 X10'3 (4.5-11.0)
[2019-07-20] MEDS: FENTANYL-0.9 % NACL/PF 100 ML IV PRN (04:47)
[2019-07-20 05:26] LABS: ABG BASE EXCESS -1.7 mmol/L (-2.0-3.0); ABG HCO3 21.5 mmol/L (22.0-26.0); ABG PCO2 (T) 30.9 mmHg (35.0-45.0); ABG PO2 (T) 76.1 mmHg (83-108); ALLEN'S TEST Positive; FCOHb 0.2 % (0.5-1.5); FMetHb 0.3 % (0.3-1.12); FO2Hb 94.5 % (94-100); MINUTE VOLUME 8 L/min; PATIENT TEMPERATURE 36.8; PEEP 5 cm H2O; RESPIRATORY RATE 18 b/min; RESPIRATORY RATE (OBSERVED) 19 b/min; TIDAL VOLUME 400 mL; TOTAL HEMOGLOBIN 9.8 G/dl (12.0-16.0)
[2019-07-20] MEDS ORDERED: pneumococcal 23-VAL P-sac vacc 25 mcg/0.5ml vial IMVAC ONE (06:20)
--- NOTE | 2019-07-20 06:28 | NUR ---
Patient in room ICU 2042. I have received report from NIRMAL Lopez and had the opportunity to ask questions and assume patient care.
[2019-07-20] MEDS: docusate sodium 100mg/10ml UD cup OGT SCH ×2 (07:33→20:00)
[2019-07-20] MEDS: chloestyramine/aspartame 4gm packet PO SCH ×2 (07:34→20:00)
[2019-07-20] MEDS: aspirin 81mg tab.chew OGT SCH (07:34)
[2019-07-20] MEDS: olanzapine 10mg tablet PO SCH (07:34)
[2019-07-20] MEDS: clopidogrel 75mg tablet OGT SCH (07:34)
[2019-07-20] MEDS: pantoprazole 40 MG vial IV SCH (07:34)
[2019-07-20] MEDS: CefTRIAXone/D5W-Rocephin 1gm 50 ML IV SCH (07:34)
[2019-07-20] MEDS: lactobacillus rhamnosus 10,000 MMU CELLS/CAPSULE PO SCH ×2 (07:34→20:00)
--- NOTE | 2019-07-20 09:36 | NUR ---
Patient currently on sedation vacation. Versed off at 0730 and now Fentanyl off, 0930. Weaning parameters performed by RT and placed on CPAP mode. Restless but follows commands easily. Nods head yes and no appropriately. Motioning to the ET tube, nods yes that she wants it out. Has communicated her upper back hurts. Thick secretions requiring frequent suction but has a strong cough.
[2019-07-20] MEDS ORDERED: ipratropium/albuterol 3ml nebule NEB PRN (11:00)
[2019-07-20] MEDS ORDERED: naloxone 0.4 mg/ml inj IV PRN (11:00)
[2019-07-20] MEDS ORDERED: racepinephrine 11.25mg/0.5ml nebule NEB PRN (11:00)
[2019-07-20] MEDS ORDERED: CADD PCA waste documentation MC PRN (11:00)
[2019-07-20] MEDS: ipratropium/albuterol 3ml nebule NEB PRN (12:25)
--- NOTE | 2019-07-20 13:15 | NUR ---
reassessment: Pt pending extubation this AM. Previously tolerating TF at goal. LBM 07/16 receiving colace and lactulose given today. Will monitor for diet advancement following extubation and ONS needs. Recommendations: 1) Continue tube feeding per OGTF using Vital AF at goal rate 55 mL/hr; to provide 1320ml fluid, 1584 kcals, 1069ml free water, and 100g protein. 2) continue additional water flush 100ml Q6 3) prealbumin q /;daily weights 4) routine bowel care 5) upon extubation; advance diet per MD to heart healthy Addendum: 07/20/19 at [address] Amended: Links added.
[2019-07-20] MEDS: dexmedetomidin/NS 400mcg/100ml 100 ML IV SCH (13:50)
[2019-07-20] MEDS: ipratropium/albuterol 3ml nebule NEB SCH ×2 (15:19→20:32)
[2019-07-20] MEDS: LORazepam 2 mg/ml vial IV PRN (15:34)
[2019-07-20 15:50] LABS: ABG BASE EXCESS -4.6 mmol/L (-2.0-3.0); ABG OXYGEN SATURATION 89.7 % (95-98); ABG PCO2 (T) 52.7 mmHg (35.0-45.0); ABG PH (T) 7.256 (7.350-7.450); ABG PO2 (T) 66.2 mmHg (83-108); ALLEN'S TEST Positive; FCOHb 0.3 % (0.5-1.5); FMetHb 0.2 % (0.3-1.12); FO2Hb 89.3 % (94-100); MINUTE VOLUME 27 L/min; PATIENT TEMPERATURE 36.7; RESPIRATORY RATE 12 b/min; RESPIRATORY RATE (OBSERVED) 20 b/min; TIDAL VOLUME 676 mL; TOTAL HEMOGLOBIN 12.4 G/dl (12.0-16.0)
[2019-07-20 17:01] LABS: ABG BASE EXCESS -2.4 mmol/L (-2.0-3.0); ABG OXYGEN SATURATION 94.6 % (95-98); ABG PCO2 (T) 61.2 mmHg (35.0-45.0); ABG PH (T) 7.243 (7.350-7.450); ALLEN'S TEST Positive; FCOHb 0.3 % (0.5-1.5); FMetHb 0.1 % (0.3-1.12); FO2Hb 94.2 % (94-100); MINUTE VOLUME 16 L/min; PATIENT TEMPERATURE 36.5; RESPIRATORY RATE 20 b/min; RESPIRATORY RATE (OBSERVED) 37 b/min; TIDAL VOLUME 422 mL; TOTAL HEMOGLOBIN 12.1 G/dl (12.0-16.0)
--- NOTE | 2019-07-20 17:19 | NUR ---
Second abg done on current bipap settings and worsened, preparing for intubation with Dr Hamilton
--- NOTE | 2019-07-20 17:42 | NUR ---
Patient reintubated by Dr Hamilton with 7.5 ET tube, 22 at teeth. Sedated with Versed after intubation. BP's with maps 50, fluid bolusing, now 89/47 map of 61. O2 Sats 91 % at 70% fIO2. Thick sputum.
[2019-07-20 18:11] LABS: ABG BASE EXCESS -4.1 mmol/L (-2.0-3.0); ABG HCO3 20.7 mmol/L (22.0-26.0); ABG OXYGEN SATURATION 91.1 % (95-98); ABG PCO2 (T) 35.8 mmHg (35.0-45.0); ABG PH (T) 7.377 (7.350-7.450); ABG PO2 (T) 58.4 mmHg (83-108); ALLEN'S TEST Positive; FCOHb 0.3 % (0.5-1.5); FO2Hb 90.8 % (94-100); MINUTE VOLUME 13 L/min; PATIENT TEMPERATURE 36.3; PEEP 5 cm H2O; RESPIRATORY RATE 15 b/min; RESPIRATORY RATE (OBSERVED) 37 b/min; TIDAL VOLUME 400 mL; TOTAL HEMOGLOBIN 10.7 G/dl (12.0-16.0)
--- NOTE | 2019-07-20 18:24 | NUR ---
Second 500 ml ns bolus running, bps still 75/46 map 76.
--- NOTE | 2019-07-20 18:30 | NUR ---
Patient in room ICU 2042. I have received report from NIRMAL Lee and had the opportunity to ask questions and assume patient care. Patient was extubated and reintubated today, she is agitated with a decreased BP. Per dianne KINNEY and Dr. Hamilton try to keep sedated, does not want her back on pressors if possible. I will continue to monitor.
[2019-07-20] MEDS: atorvastatin 20mg tablet PO SCH (21:00)
[2019-07-20] MEDS: insulin glargine (Lantus) pen - multi-dose SQ SCH (21:00)
[2019-07-21] VITALS (23 sets, daily range): BP systolic 77–101; BP diastolic 43–62
[2019-07-21] MEDS: hydrocortisone sod succ/PF 100mg/2ml inj. IV SCH ×3 (00:02→16:18)
[2019-07-21] MEDS: normal saline 1000ml 1,000 ML IV SCH (00:02)
[2019-07-21] MEDS: ipratropium/albuterol 3ml nebule NEB SCH ×4 (02:32→20:19)
[2019-07-21] MEDS: mineral oil/petrolatum ophthal oint EACHEYE SCH ×4 (02:33→19:48)
[2019-07-21 02:48] LABS: BASOPHILS % (AUTO) 0.1 % (0-1); EOSINOPHILS % (AUTO) 0 % (0-6); HEMATOCRIT 26.8 % (35.0-45.0); HEMOGLOBIN 8.8 g/dl (12.0-16.0); LYMPHOCYTES # (AUTO) 0.8 X10'3 (1.1-4.8); LYMPHOCYTES % (AUTO) 3.3 % (21-51); MEAN CORPUSCULAR HGB CONC 32.9 g/dL (33.0-36.5); MEAN CORPUSCULAR VOLUME 91.4 FL (78-98); MEAN PLATELET VOLUME 8.2 FL (7.4-10.4); MONOCYTES # (AUTO) 0.5 X10'3 (0-0.9); MONOCYTES % (AUTO) 2.1 % (2-12); NEUTROPHILS # (AUTO) 22.5 X10'3 (1.8-7.7); NEUTROPHILS % (AUTO) 94.5 % (42-75); PLATELET COUNT 370 X10'3 (140-440); RED BLOOD COUNT 2.93 X10'6 (4.20-5.60); RED CELL DISTRIBUTION WIDTH 13.9 % (11.5-14.5); WHITE BLOOD COUNT 23.8 X10'3 (4.5-11.0)
[2019-07-21 02:57] LABS: PARTIAL THROMBOPLASTIN TIME 25 SECONDS (22-32)
[2019-07-21 03:03] LABS: ALANINE AMINOTRANSFERASE 37 U/L (12-78); ALBUMIN 1.7 G/DL (3.4-5.0); ALBUMIN/GLOBULIN RATIO 0.4 (1.1-1.5); ALKALINE PHOSPHATASE 82 IU/L (46-116); ANION GAP 7 (8-16); ASPARTATE AMINO TRANSFERASE 31 U/L (10-37); BILIRUBIN,TOTAL 0.4 MG/DL (0.1-1.0); BLOOD UREA NITROGEN 22 MG/DL (7-18); BUN/CREATININE RATIO 37.9 (6.6-38.0); CHLORIDE 114 MMOL/L (99-107); CREATININE 0.58 MG/DL (0.40-0.90); GLUCOSE 117 MG/DL (70-104); MAGNESIUM 1.9 MG/DL (1.5-2.4); PHOSPHORUS 3.2 MG/DL (2.3-4.5); POTASSIUM 4.4 MMOL/L (3.5-5.1); SODIUM 146 MMOL/L (135-145); TOTAL CARBON DIOXIDE 25.1 MMOL/L (24-32); TOTAL PROTEIN 5.6 G/DL (6.4-8.2); eGFR > 90 ML/MIN
[2019-07-21 03:46] LABS: ABG BASE EXCESS 0.7 mmol/L (-2.0-3.0); ABG HCO3 23.3 mmol/L (22.0-26.0); ABG OXYGEN SATURATION 98.1 % (95-98); ABG PCO2 (T) 30.3 mmHg (35.0-45.0); ABG PH (T) 7.504 (7.350-7.450); ABG PO2 (T) 116.7 mmHg (83-108); ALLEN'S TEST Positive; FCOHb 0.2 % (0.5-1.5); FMetHb 0.3 % (0.3-1.12); FO2Hb 97.6 % (94-100); MINUTE VOLUME 12 L/min; PATIENT TEMPERATURE 37.3; PEEP 8 cm H2O; RESPIRATORY RATE 15 b/min; RESPIRATORY RATE (OBSERVED) 29 b/min; TIDAL VOLUME 400 mL; TOTAL HEMOGLOBIN 9.6 G/dl (12.0-16.0)
[2019-07-21] MEDS: dexmedetomidin/NS 400mcg/100ml 100 ML IV SCH ×2 (05:05→21:54)
--- NOTE | 2019-07-21 06:15 | NUR ---
Problems reprioritized. Patient report given, questions answered & plan of care reviewed with NIRMAL Lee.
[2019-07-21] MEDS: CefTRIAXone/D5W-Rocephin 1gm 50 ML IV SCH (08:39)
[2019-07-21] MEDS: pantoprazole 40 MG vial IV SCH (08:40)
[2019-07-21] MEDS: ipratropium/albuterol 3ml nebule NEB PRN (11:37)
--- NOTE | 2019-07-21 12:15 | NUR ---
OG tube placed and tube feeding restarted. Pt very anxious during placement and required bolus of sedation.
[2019-07-21] MEDS: clopidogrel 75mg tablet OGT SCH (13:40)
[2019-07-21] MEDS: lactobacillus rhamnosus 10,000 MMU CELLS/CAPSULE PO SCH ×2 (13:40→19:47)
[2019-07-21] MEDS: aspirin 81mg tab.chew OGT SCH (13:40)
[2019-07-21] MEDS: chloestyramine/aspartame 4gm packet PO SCH ×2 (13:40→19:47)
[2019-07-21] MEDS: docusate sodium 100mg/10ml UD cup OGT SCH ×2 (13:40→19:47)
[2019-07-21] MEDS: olanzapine 10mg tablet PO SCH (13:40)
--- NOTE | 2019-07-21 18:15 | NUR ---
Patient in room ICU 2042. I have received report from NIRMAL Lee and had the opportunity to ask questions and assume patient care. Patient still intubated, OG placed today and tube feed started. I will continue to monitor.
[2019-07-21] MEDS: atorvastatin 20mg tablet PO SCH (19:47)
[2019-07-21] MEDS: insulin glargine (Lantus) pen - multi-dose SQ SCH (21:00)
[2019-07-22] VITALS (28 sets, daily range): BP systolic 89–128; BP diastolic 56–77
[2019-07-22] MEDS: hydrocortisone sod succ/PF 100mg/2ml inj. IV SCH ×4 (00:30→23:39)
[2019-07-22] MEDS: ipratropium/albuterol 3ml nebule NEB SCH ×4 (02:19→20:20)
[2019-07-22] MEDS: mineral oil/petrolatum ophthal oint EACHEYE SCH ×4 (02:44→20:28)
[2019-07-22 03:46] LABS: PARTIAL THROMBOPLASTIN TIME 27 SECONDS (22-32)
[2019-07-22 03:48] LABS: BASOPHILS % (AUTO) 0.1 % (0-1); EOSINOPHILS % (AUTO) 0 % (0-6); HEMATOCRIT 23.8 % (35.0-45.0); HEMOGLOBIN 7.9 g/dl (12.0-16.0); LYMPHOCYTES # (AUTO) 1.6 X10'3 (1.1-4.8); LYMPHOCYTES % (AUTO) 10.9 % (21-51); MEAN CORPUSCULAR HEMOGLOBIN 30.7 PG (27.0-31.0); MEAN CORPUSCULAR VOLUME 92.9 FL (78-98); MEAN PLATELET VOLUME 8.3 FL (7.4-10.4); MONOCYTES # (AUTO) 0.3 X10'3 (0-0.9); MONOCYTES % (AUTO) 2.1 % (2-12); NEUTROPHILS # (AUTO) 12.4 X10'3 (1.8-7.7); NEUTROPHILS % (AUTO) 86.9 % (42-75); PLATELET COUNT 366 X10'3 (140-440); RED BLOOD COUNT 2.56 X10'6 (4.20-5.60); RED CELL DISTRIBUTION WIDTH 13.9 % (11.5-14.5); WHITE BLOOD COUNT 14.3 X10'3 (4.5-11.0)
[2019-07-22 04:01] LABS: ANION GAP 9 (8-16); BILIRUBIN,TOTAL 0.3 MG/DL (0.1-1.0); BLOOD UREA NITROGEN 28 MG/DL (7-18); BUN/CREATININE RATIO 50.9 (6.6-38.0); CALCIUM 8.4 MG/DL (8.5-10.1); CHLORIDE 111 MMOL/L (99-107); CREATININE 0.55 MG/DL (0.40-0.90); GLUCOSE 128 MG/DL (70-104); MAGNESIUM 2.3 MG/DL (1.5-2.4); PHOSPHORUS 3.6 MG/DL (2.3-4.5); POTASSIUM 4.4 MMOL/L (3.5-5.1); SODIUM 144 MMOL/L (135-145); TOTAL CARBON DIOXIDE 24.5 MMOL/L (24-32); TOTAL PROTEIN 5.9 G/DL (6.4-8.2); eGFR > 90 ML/MIN
[2019-07-22 04:02] LABS: ALANINE AMINOTRANSFERASE 36 U/L (12-78); ALBUMIN 1.8 G/DL (3.4-5.0); ALBUMIN/GLOBULIN RATIO 0.4 (1.1-1.5); ALKALINE PHOSPHATASE 72 IU/L (46-116); ASPARTATE AMINO TRANSFERASE 22 U/L (10-37)
[2019-07-22 04:35] LABS: ABG BASE EXCESS -0.9 mmol/L (-2.0-3.0); ABG HCO3 22.2 mmol/L (22.0-26.0); ABG OXYGEN SATURATION 97.9 % (95-98); ABG PCO2 (T) 30.2 mmHg (35.0-45.0); ABG PH (T) 7.482 (7.350-7.450); ABG PO2 (T) 111.9 mmHg (83-108); ALLEN'S TEST Positive; FCOHb 0.2 % (0.5-1.5); FMetHb 0.3 % (0.3-1.12); FO2Hb 97.4 % (94-100); MINUTE VOLUME 9 L/min; PATIENT TEMPERATURE 36.4; PEEP 8 cm H2O; RESPIRATORY RATE 15 b/min; RESPIRATORY RATE (OBSERVED) 18 b/min; TIDAL VOLUME 400 mL; TOTAL HEMOGLOBIN 9.4 G/dl (12.0-16.0)
--- NOTE | 2019-07-22 06:30 | NUR ---
Problems reprioritized. Patient report given, questions answered & plan of care reviewed with NIRMAL Yanes.
[2019-07-22] MEDS: pantoprazole 40 MG vial IV SCH (07:45)
[2019-07-22] MEDS: CefTRIAXone/D5W-Rocephin 1gm 50 ML IV SCH (07:45)
[2019-07-22] MEDS: chloestyramine/aspartame 4gm packet PO SCH ×2 (07:45→20:28)
[2019-07-22] MEDS: docusate sodium 100mg/10ml UD cup OGT SCH ×2 (07:45→20:27)
[2019-07-22] MEDS: clopidogrel 75mg tablet OGT SCH (07:46)
[2019-07-22] MEDS: olanzapine 10mg tablet PO SCH (07:46)
[2019-07-22] MEDS: aspirin 81mg tab.chew OGT SCH (07:46)
[2019-07-22] MEDS: lactobacillus rhamnosus 10,000 MMU CELLS/CAPSULE PO SCH ×2 (07:46→20:27)
[2019-07-22] MEDS ORDERED: furosemide 40mg/4ml inj IV ONE (10:35)
[2019-07-22] MEDS: midazolam 100mg in NS 100ml 100 ML IV PRN (11:00)
[2019-07-22] MEDS: dexmedetomidin/NS 400mcg/100ml 100 ML IV SCH (12:27)
[2019-07-22] MEDS ORDERED: metoclopramide 5 mg/ml inj IV PRN (12:30)
[2019-07-22] MEDS: normal saline 1000ml 1,000 ML IV SCH (16:06)
--- NOTE | 2019-07-22 18:30 | NUR ---
Patient in room ICU 2042. I have received report from LORETTA KINNEY and had the opportunity to ask questions and assume patient care.
[2019-07-22] MEDS: insulin glargine (Lantus) pen - multi-dose SQ SCH (20:27)
[2019-07-22] MEDS: atorvastatin 20mg tablet PO SCH (20:28)
[2019-07-23] VITALS (23 sets, daily range): BP systolic 99–128; BP diastolic 54–83
[2019-07-23] MEDS: mineral oil/petrolatum ophthal oint EACHEYE SCH ×4 (01:58→20:07)
[2019-07-23] MEDS: ipratropium/albuterol 3ml nebule NEB SCH ×4 (02:21→21:08)
[2019-07-23 02:57] LABS: BASOPHILS % (AUTO) 0.1 % (0-1); EOSINOPHILS % (AUTO) 0 % (0-6); HEMATOCRIT 30.7 % (35.0-45.0); HEMOGLOBIN 10.1 g/dl (12.0-16.0); LYMPHOCYTES # (AUTO) 1.2 X10'3 (1.1-4.8); LYMPHOCYTES % (AUTO) 8.6 % (21-51); MEAN CORPUSCULAR HEMOGLOBIN 30.1 PG (27.0-31.0); MEAN CORPUSCULAR HGB CONC 32.9 g/dL (33.0-36.5); MEAN CORPUSCULAR VOLUME 91.5 FL (78-98); MEAN PLATELET VOLUME 8.4 FL (7.4-10.4); MONOCYTES # (AUTO) 0.4 X10'3 (0-0.9); MONOCYTES % (AUTO) 2.7 % (2-12); NEUTROPHILS # (AUTO) 12.2 X10'3 (1.8-7.7); NEUTROPHILS % (AUTO) 88.6 % (42-75); PLATELET COUNT 406 X10'3 (140-440); RED BLOOD COUNT 3.36 X10'6 (4.20-5.60); RED CELL DISTRIBUTION WIDTH 14.3 % (11.5-14.5); WHITE BLOOD COUNT 13.8 X10'3 (4.5-11.0)
[2019-07-23 03:13] LABS: PARTIAL THROMBOPLASTIN TIME 24 SECONDS (22-32)
[2019-07-23 03:15] LABS: ALANINE AMINOTRANSFERASE 39 U/L (12-78); ALBUMIN 2.1 G/DL (3.4-5.0); ALBUMIN/GLOBULIN RATIO 0.5 (1.1-1.5); ALKALINE PHOSPHATASE 83 IU/L (46-116); ANION GAP 8 (8-16); ASPARTATE AMINO TRANSFERASE 17 U/L (10-37); BILIRUBIN,TOTAL 0.3 MG/DL (0.1-1.0); BLOOD UREA NITROGEN 33 MG/DL (7-18); CALCIUM 8.8 MG/DL (8.5-10.1); CHLORIDE 111 MMOL/L (99-107); CREATININE 0.58 MG/DL (0.40-0.90); GLUCOSE 157 MG/DL (70-104); MAGNESIUM 2.2 MG/DL (1.5-2.4); PHOSPHORUS 3.3 MG/DL (2.3-4.5); POTASSIUM 3.8 MMOL/L (3.5-5.1); SODIUM 144 MMOL/L (135-145); TOTAL CARBON DIOXIDE 24.7 MMOL/L (24-32); TOTAL PROTEIN 6.4 G/DL (6.4-8.2); eGFR > 90 ML/MIN
[2019-07-23 03:17] LABS: BUN/CREATININE RATIO 56.9 (6.6-38.0)
[2019-07-23 05:11] LABS: ABG HCO3 22.3 mmol/L (22.0-26.0); ABG OXYGEN SATURATION 97.2 % (95-98); ABG PCO2 (T) 31.9 mmHg (35.0-45.0); ABG PH (T) 7.461 (7.350-7.450); ABG PO2 (T) 94.6 mmHg (83-108); FCOHb 0.3 % (0.5-1.5); FMetHb 0.1 % (0.3-1.12); FO2Hb 96.8 % (94-100); MINUTE VOLUME 10 L/min; PATIENT TEMPERATURE 36.5; PEEP 8 cm H2O; RESPIRATORY RATE 15 b/min; RESPIRATORY RATE (OBSERVED) 23 b/min; TIDAL VOLUME 400 mL; TOTAL HEMOGLOBIN 11.6 G/dl (12.0-16.0)
--- NOTE | 2019-07-23 06:34 | NUR ---
Problems reprioritized. Patient report given, questions answered & plan of care reviewed with JOSE ANTONIO KINNEY.
--- NOTE | 2019-07-23 07:38 | NUR ---
Patient in room ICU 2042. I have received report from Ludivina KINNEY and had the opportunity to ask questions and assume patient care.
[2019-07-23] MEDS: dexmedetomidin/NS 400mcg/100ml 100 ML IV SCH ×2 (08:09→16:43)
[2019-07-23] MEDS: aspirin 81mg tab.chew OGT SCH (08:45)
[2019-07-23] MEDS: lactobacillus rhamnosus 10,000 MMU CELLS/CAPSULE PO SCH ×2 (08:45→20:07)
[2019-07-23] MEDS: chloestyramine/aspartame 4gm packet PO SCH ×2 (08:45→20:07)
[2019-07-23] MEDS: pantoprazole 40 MG vial IV SCH (08:45)
[2019-07-23] MEDS: clopidogrel 75mg tablet OGT SCH (08:45)
[2019-07-23] MEDS: hydrocortisone sod succ/PF 100mg/2ml inj. IV SCH ×2 (08:45→15:50)
[2019-07-23] MEDS: docusate sodium 100mg/10ml UD cup OGT SCH ×2 (08:45→20:07)
[2019-07-23] MEDS: olanzapine 10mg tablet PO SCH (08:45)
[2019-07-23] MEDS: CefTRIAXone/D5W-Rocephin 1gm 50 ML IV SCH (08:46)
[2019-07-23] MEDS ORDERED: furosemide 40mg/4ml inj IV ONE (08:50)
[2019-07-23] MEDS: methylnaltrexone br 12mg/0.6ml inj***SubQ only SQ SCH (11:20)
--- NOTE | 2019-07-23 11:39 | NUR ---
reassessment: Pt TF returned to goal remains intubated. LBM 07/21. GRV WNL 210ml; reglan to start today per MD. New PALB pending. Will continue to monitor. Recommendations: 1) Continue tube feeding per OGTF using Vital AF at goal rate 55 mL/hr; to provide 1320ml fluid, 1584 kcals, 1069ml free water, and 100g protein. 2) continue additional water flush 100ml Q6 3) prealbumin q /;daily weights 4) routine bowel care 5) upon extubation; advance diet per MD to heart healthy Addendum: 07/23/19 at [address] Amended: Links added.
[2019-07-23 12:34] LABS: PREALBUMIN 20.8 MG/DL (19-36)
[2019-07-23] MEDS: metoclopramide 5 mg/ml inj IV SCH ×2 (15:20→20:07)
--- NOTE | 2019-07-23 18:20 | NUR ---
Problems reprioritized. Patient report given, questions answered & plan of care reviewed with Barry KINNEY.
--- NOTE | 2019-07-23 18:21 | NUR ---
Problems reprioritized. Patient report given, questions answered & plan of care reviewed with Jenifer KINNEY.
[2019-07-23] MEDS: insulin glargine (Lantus) pen - multi-dose SQ SCH (21:00)
[2019-07-23] MEDS: atorvastatin 20mg tablet PO SCH (21:00)
[2019-07-24] VITALS (23 sets, daily range): BP systolic 103–140; BP diastolic 52–92
[2019-07-24] MEDS: hydrocortisone sod succ/PF 100mg/2ml inj. IV SCH ×3 (02:08→16:57)
[2019-07-24] MEDS: mineral oil/petrolatum ophthal oint EACHEYE SCH ×4 (02:16→20:00)
[2019-07-24] MEDS: metoclopramide 5 mg/ml inj IV SCH ×4 (02:16→21:02)
[2019-07-24] MEDS: dexmedetomidin/NS 400mcg/100ml 100 ML IV SCH (02:59)
[2019-07-24] MEDS: ipratropium/albuterol 3ml nebule NEB SCH ×4 (03:05→20:53)
[2019-07-24 03:55] LABS: ABG BASE EXCESS -0.8 mmol/L (-2.0-3.0); ABG HCO3 22.5 mmol/L (22.0-26.0); ABG OXYGEN SATURATION 97.6 % (95-98); ABG PCO2 (T) 32.5 mmHg (35.0-45.0); ABG PH (T) 7.458 (7.350-7.450); ABG PO2 (T) 103.4 mmHg (83-108); ALLEN'S TEST Positive; FCOHb 0.3 % (0.5-1.5); FMetHb 0.2 % (0.3-1.12); FO2Hb 97.1 % (94-100); MINUTE VOLUME 13 L/min; PATIENT TEMPERATURE 36.8; PEEP 5 cm H2O; RESPIRATORY RATE 15 b/min; RESPIRATORY RATE (OBSERVED) 25 b/min; TIDAL VOLUME 400 mL; TOTAL HEMOGLOBIN 11.8 G/dl (12.0-16.0)
[2019-07-24 04:01] LABS: BASOPHILS % (AUTO) 0.1 % (0-1); EOSINOPHILS % (AUTO) 0 % (0-6); HEMATOCRIT 31.5 % (35.0-45.0); HEMOGLOBIN 10.6 g/dl (12.0-16.0); LYMPHOCYTES # (AUTO) 1.8 X10'3 (1.1-4.8); MEAN CORPUSCULAR HEMOGLOBIN 30.9 PG (27.0-31.0); MEAN CORPUSCULAR HGB CONC 33.8 g/dL (33.0-36.5); MEAN CORPUSCULAR VOLUME 91.4 FL (78-98); MEAN PLATELET VOLUME 8.3 FL (7.4-10.4); MONOCYTES # (AUTO) 0.5 X10'3 (0-0.9); MONOCYTES % (AUTO) 3.7 % (2-12); NEUTROPHILS # (AUTO) 10.3 X10'3 (1.8-7.7); NEUTROPHILS % (AUTO) 82.2 % (42-75); PLATELET COUNT 439 X10'3 (140-440); RED BLOOD COUNT 3.44 X10'6 (4.20-5.60); RED CELL DISTRIBUTION WIDTH 14.2 % (11.5-14.5); WHITE BLOOD COUNT 12.5 X10'3 (4.5-11.0)
[2019-07-24 04:12] LABS: PARTIAL THROMBOPLASTIN TIME 24 SECONDS (22-32)
[2019-07-24 04:15] LABS: ALANINE AMINOTRANSFERASE 43 U/L (12-78); ALBUMIN 2.1 G/DL (3.4-5.0); ALBUMIN/GLOBULIN RATIO 0.5 (1.1-1.5); ALKALINE PHOSPHATASE 76 IU/L (46-116); ANION GAP 9 (8-16); ASPARTATE AMINO TRANSFERASE 21 U/L (10-37); BILIRUBIN,TOTAL 0.3 MG/DL (0.1-1.0); BLOOD UREA NITROGEN 37 MG/DL (7-18); BUN/CREATININE RATIO 56.9 (6.6-38.0); CALCIUM 8.4 MG/DL (8.5-10.1); CHLORIDE 110 MMOL/L (99-107); CREATININE 0.65 MG/DL (0.40-0.90); GLUCOSE 129 MG/DL (70-104); MAGNESIUM 1.8 MG/DL (1.5-2.4); PHOSPHORUS 2.8 MG/DL (2.3-4.5); POTASSIUM 3.1 MMOL/L (3.5-5.1); SODIUM 143 MMOL/L (135-145); TOTAL CARBON DIOXIDE 23.8 MMOL/L (24-32); TOTAL PROTEIN 6.2 G/DL (6.4-8.2); eGFR > 90 ML/MIN
[2019-07-24] MEDS: potassium CL 10mEq/100ml bag 100 ML IV PRN ×4 (04:43→09:12)
[2019-07-24] MEDS ORDERED: methylnaltrexone br 12mg/0.6ml inj***SubQ only SQ SCH (08:00)
[2019-07-24] MEDS: normal saline 1000ml 1,000 ML IV SCH (08:06)
[2019-07-24] MEDS: CefTRIAXone/D5W-Rocephin 1gm 50 ML IV SCH (09:12)
[2019-07-24] MEDS: aspirin 81mg tab.chew OGT SCH (09:13)
[2019-07-24] MEDS: pantoprazole 40 MG vial IV SCH (09:13)
[2019-07-24] MEDS: docusate sodium 100mg/10ml UD cup OGT SCH ×2 (09:13→21:03)
[2019-07-24] MEDS: chloestyramine/aspartame 4gm packet PO SCH ×2 (09:13→21:03)
[2019-07-24] MEDS: olanzapine 10mg tablet PO SCH (09:13)
[2019-07-24] MEDS: lactobacillus rhamnosus 10,000 MMU CELLS/CAPSULE PO SCH ×2 (09:13→21:03)
[2019-07-24] MEDS: clopidogrel 75mg tablet OGT SCH (09:14)
[2019-07-24] MEDS ORDERED: furosemide 40mg/4ml inj IV ONE (10:15)
[2019-07-24] MEDS ORDERED: racepinephrine 11.25mg/0.5ml nebule IH PRN (13:35)
--- NOTE | 2019-07-24 14:50 | NUR ---
1445- pT EXTUBATED WITHOUT ANY PROBLEMS. pT ALERT, ON 2l n/c SATING AT 94%. fAMILY AT BEDSIDE.
--- NOTE | 2019-07-24 18:17 | NUR ---
Problems reprioritized. Patient report given, questions answered & plan of care reviewed with KUSHAL KINNEY.
--- NOTE | 2019-07-24 18:17 | NUR ---
Patient in room ICU 2042. I have received report from and had the opportunity to ask questions and assume patient care. Pt received awake alert & oriented. Sitting up in chair on 1 oxygen via NC. In good spirits. Bilateral pigtail chest tubes right & left upper lateral/posterior to 20cm suction. No air leaks. Drainage is pale yellow. IV to left upper arm with NS TKO. Zuluaga cath drains light kika urine. No distress.
[2019-07-24] MEDS: insulin glargine (Lantus) pen - multi-dose SQ SCH (21:00)
[2019-07-24] MEDS: atorvastatin 20mg tablet PO SCH (21:03)
[2019-07-24] MEDS ORDERED: acetaminophen 325mg tablet PO PRN ×2 (22:03)
[2019-07-25] VITALS (24 sets, daily range): BP systolic 93–160; BP diastolic 60–94
--- NOTE | 2019-07-25 | NUR ---
Rhythm remains sinus. No distress. Pt repositions self ad neyda, rolls around right/left side ad neyda.
[2019-07-25] MEDS: hydrocortisone sod succ/PF 100mg/2ml inj. IV SCH ×2 (00:16→07:49)
[2019-07-25] MEDS: dexmedetomidin/NS 400mcg/100ml 100 ML IV SCH ×2 (00:35→15:50)
[2019-07-25] MEDS: mineral oil/petrolatum ophthal oint EACHEYE SCH (02:00)
[2019-07-25] MEDS: metoclopramide 5 mg/ml inj IV SCH ×4 (02:27→19:59)
[2019-07-25] MEDS: LORazepam 2 mg/ml vial IV PRN ×3 (02:35→15:30)
--- NOTE | 2019-07-25 02:35 | NUR ---
Pt requesting something for anxiety. Ativan given as ordered.
[2019-07-25] MEDS: ipratropium/albuterol 3ml nebule NEB SCH ×4 (02:54→20:45)
--- NOTE | 2019-07-25 03:00 | NUR ---
Asleep resting quietly. No distressO2 sat 96%.
--- NOTE | 2019-07-25 05:20 | NUR ---
Left side pigtail chest tube found out. Dressing applied. Pt is in no distress, denies SOB or respiratory difficulty.O2 sat is 94% RR unlabored. Shima Florez notified. Order for chest xray obtained.
--- NOTE | 2019-07-25 06:00 | NUR ---
No distress. pt is awake & alert. RR unlabored. O2 sat 93-94% on 4L O2 NC.
--- NOTE | 2019-07-25 06:30 | NUR ---
Problems reprioritized. Patient report given, questions answered & plan of care reviewed with Akosua KINNEY.
[2019-07-25] MEDS: pantoprazole 40 MG vial IV SCH (07:48)
[2019-07-25] MEDS: clopidogrel 75mg tablet OGT SCH (07:48)
[2019-07-25] MEDS: docusate sodium 100mg/10ml UD cup OGT SCH ×2 (07:48→19:58)
[2019-07-25] MEDS: CefTRIAXone/D5W-Rocephin 1gm 50 ML IV SCH (07:49)
[2019-07-25] MEDS: olanzapine 10mg tablet PO SCH (07:49)
[2019-07-25] MEDS: aspirin 81mg tab.chew OGT SCH (07:49)
[2019-07-25] MEDS: methylnaltrexone br 12mg/0.6ml inj***SubQ only SQ SCH (07:49)
[2019-07-25] MEDS: chloestyramine/aspartame 4gm packet PO SCH ×2 (07:49→19:59)
[2019-07-25] MEDS: lactobacillus rhamnosus 10,000 MMU CELLS/CAPSULE PO SCH ×2 (07:49→19:59)
[2019-07-25 08:08] LABS: BASOPHILS % (AUTO) 0 % (0-1); EOSINOPHILS % (AUTO) 0 % (0-6); HEMATOCRIT 32.7 % (35.0-45.0); HEMOGLOBIN 10.8 g/dl (12.0-16.0); LYMPHOCYTES # (AUTO) 1.5 X10'3 (1.1-4.8); LYMPHOCYTES % (AUTO) 11.7 % (21-51); MEAN CORPUSCULAR HEMOGLOBIN 30.5 PG (27.0-31.0); MEAN CORPUSCULAR HGB CONC 33.1 g/dL (33.0-36.5); MEAN CORPUSCULAR VOLUME 92.1 FL (78-98); MEAN PLATELET VOLUME 7.9 FL (7.4-10.4); MONOCYTES # (AUTO) 0.5 X10'3 (0-0.9); MONOCYTES % (AUTO) 3.7 % (2-12); NEUTROPHILS # (AUTO) 11.1 X10'3 (1.8-7.7); NEUTROPHILS % (AUTO) 84.6 % (42-75); PLATELET COUNT 495 X10'3 (140-440); RED BLOOD COUNT 3.56 X10'6 (4.20-5.60); RED CELL DISTRIBUTION WIDTH 14.2 % (11.5-14.5); WHITE BLOOD COUNT 13.1 X10'3 (4.5-11.0)
[2019-07-25 08:25] LABS: PARTIAL THROMBOPLASTIN TIME 23 SECONDS (22-32)
[2019-07-25 08:27] LABS: ALANINE AMINOTRANSFERASE 48 U/L (12-78); ALBUMIN 2.3 G/DL (3.4-5.0); ALBUMIN/GLOBULIN RATIO 0.6 (1.1-1.5); ALKALINE PHOSPHATASE 68 IU/L (46-116); ANION GAP 5 (8-16); ASPARTATE AMINO TRANSFERASE 29 U/L (10-37); BILIRUBIN,TOTAL 0.5 MG/DL (0.1-1.0); BLOOD UREA NITROGEN 29 MG/DL (7-18); BUN/CREATININE RATIO 53.7 (6.6-38.0); CALCIUM 8.6 MG/DL (8.5-10.1); CHLORIDE 110 MMOL/L (99-107); CREATININE 0.54 MG/DL (0.40-0.90); GLUCOSE 103 MG/DL (70-104); PHOSPHORUS 3.6 MG/DL (2.3-4.5); POTASSIUM 3.1 MMOL/L (3.5-5.1); SODIUM 145 MMOL/L (135-145); TOTAL CARBON DIOXIDE 30.1 MMOL/L (24-32); TOTAL PROTEIN 6.2 G/DL (6.4-8.2); eGFR > 90 ML/MIN
[2019-07-25] MEDS: potassium CL 10mEq/100ml bag 100 ML IV PRN (09:28)
--- NOTE | 2019-07-25 10:39 | NUR ---
Pt. RR increased to 40s from rate of 28 this morning. Ativan given per pt. report of anxiety w/ no change in respiratory effort/rate/ CXR taken and no noted changes from prior x-ray post pigtail removal prior shift. MD Heredia notified. Awaiting orders. K+= 3.1, replaced w/ 10 mEq IV.
[2019-07-25] MEDS: methylPREDNISolone sod succ 125mg/2ml vial IV SCH (15:43)
--- NOTE | 2019-07-25 18:35 | NUR ---
Patient in room ICU 2042. I have received report from Akosua KINNEY and had the opportunity to ask questions and assume patient care. Patient desaturating to 83% on 2L NC, patient breathing 40 breaths/min. Order received from Josy GUERRA to obtain ABG and to notify Vikki METAL MINER when she comes in with ABG results for further orders. Patient sounds wet bilaterally. Will notify October Vikki METAL MINER with results.
[2019-07-25 18:39] LABS: POTASSIUM 3.5 MMOL/L (3.5-5.1)
[2019-07-25 19:00] LABS: ABG BASE EXCESS 2.1 mmol/L (-2.0-3.0); ABG HCO3 26.5 mmol/L (22.0-26.0); ABG OXYGEN SATURATION 90.3 % (95-98); ABG PCO2 (T) 40.8 mmHg (35.0-45.0); ABG PH (T) 7.431 (7.350-7.450); ABG PO2 (T) 58.9 mmHg (83-108); ALLEN'S TEST Positive; FCOHb 0.3 % (0.5-1.5); FLOW 6 L/min; FMetHb 0.1 % (0.3-1.12); FO2Hb 89.9 % (94-100); PATIENT TEMPERATURE 37.3; TOTAL HEMOGLOBIN 13.5 G/dl (12.0-16.0)
--- NOTE | 2019-07-25 19:30 | NUR ---
October Vikki at bedside to assess patient. Patient placed on salter, now saturating at 94% but still tachypneic. New orders received for dose of lasix now, BNP pending at this time.
[2019-07-25] MEDS ORDERED: furosemide 20 MG/2 ML vial IV ONE (19:35)
[2019-07-25] MEDS: atorvastatin 20mg tablet PO SCH (19:58)
[2019-07-25] MEDS: insulin glargine (Lantus) pen - multi-dose SQ SCH (21:00)
[2019-07-26] VITALS (18 sets, daily range): BP systolic 107–147; BP diastolic 62–88
[2019-07-26] MEDS: methylPREDNISolone sod succ 125mg/2ml vial IV SCH ×3 (00:14→16:24)
[2019-07-26] MEDS: metoclopramide 5 mg/ml inj IV SCH ×2 (01:31→08:41)
[2019-07-26] MEDS: ipratropium/albuterol 3ml nebule NEB SCH ×4 (02:49→21:06)
[2019-07-26 03:04] LABS: BASOPHILS % (AUTO) 0.3 % (0-1); EOSINOPHILS % (AUTO) 0 % (0-6); HEMOGLOBIN 11.8 g/dl (12.0-16.0); LYMPHOCYTES % (AUTO) 6.4 % (21-51); MEAN CORPUSCULAR HEMOGLOBIN 30.5 PG (27.0-31.0); MEAN CORPUSCULAR HGB CONC 33.7 g/dL (33.0-36.5); MEAN CORPUSCULAR VOLUME 90.5 FL (78-98); MEAN PLATELET VOLUME 7.7 FL (7.4-10.4); MONOCYTES # (AUTO) 0.5 X10'3 (0-0.9); MONOCYTES % (AUTO) 3.1 % (2-12); NEUTROPHILS # (AUTO) 13.9 X10'3 (1.8-7.7); NEUTROPHILS % (AUTO) 90.2 % (42-75); PLATELET COUNT 519 X10'3 (140-440); RED BLOOD COUNT 3.87 X10'6 (4.20-5.60); RED CELL DISTRIBUTION WIDTH 14.3 % (11.5-14.5); WHITE BLOOD COUNT 15.4 X10'3 (4.5-11.0)
[2019-07-26 03:27] LABS: ALBUMIN 2.4 G/DL (3.4-5.0); ANION GAP 7 (8-16); BLOOD UREA NITROGEN 29 MG/DL (7-18); BUN/CREATININE RATIO 47.5 (6.6-38.0); CALCIUM 8.4 MG/DL (8.5-10.1); CHLORIDE 111 MMOL/L (99-107); CREATININE 0.61 MG/DL (0.40-0.90); GLUCOSE 108 MG/DL (70-104); POTASSIUM 3.5 MMOL/L (3.5-5.1); SODIUM 145 MMOL/L (135-145); TOTAL CARBON DIOXIDE 27.2 MMOL/L (24-32); eGFR > 90 ML/MIN
--- NOTE | 2019-07-26 06:32 | NUR ---
Problems reprioritized. Patient report given, questions answered & plan of care reviewed with Cr KINNEY.
--- NOTE | 2019-07-26 06:40 | NUR ---
Patient in room ICU 2042. I have received report from NIRMAL Gray and had the opportunity to ask questions and assume patient care.
[2019-07-26] MEDS: dexmedetomidin/NS 400mcg/100ml 100 ML IV SCH (07:05)
[2019-07-26] MEDS: aspirin 81mg tab.chew OGT SCH (08:39)
[2019-07-26] MEDS: docusate sodium 100mg/10ml UD cup OGT SCH ×2 (08:39→20:23)
[2019-07-26] MEDS: clopidogrel 75mg tablet OGT SCH (08:39)
[2019-07-26] MEDS: lactobacillus rhamnosus 10,000 MMU CELLS/CAPSULE PO SCH ×2 (08:39→20:23)
[2019-07-26] MEDS: chloestyramine/aspartame 4gm packet PO SCH ×2 (08:39→20:23)
[2019-07-26] MEDS: olanzapine 10mg tablet PO SCH (08:39)
[2019-07-26] MEDS: pantoprazole 40 MG vial IV SCH (08:42)
[2019-07-26] MEDS: CefTRIAXone/D5W-Rocephin 1gm 50 ML IV SCH (08:42)
[2019-07-26 10:04] LABS: MAGNESIUM 1.9 MG/DL (1.5-2.4); PHOSPHORUS 3.5 MG/DL (2.3-4.5)
--- NOTE | 2019-07-26 11:10 | NUR ---
reassessment: Pt TF returned to goal remains intubated. LBM 07/21. GRV WNL 210ml; reglan to start today per MD. New PALB pending. Will continue to monitor. Recommendations: 1) advance diet per MD to heart healthy 2) ensure pudding TIDWM 3) HH diet ed once stable prior to d/c 4) routine bowel care 5) wt per rx Addendum: 07/26/19 at [address] Amended: Links added. Addendum: 07/27/19 at [address] CORRECTION: reassessment: Pt s/p extubation wheezing w/ respiratory failure. Stopped smoking when admit to hospital per MD note. PO 25% avg meals down from 100% first meal upon extubation. Ensure pudding TIDWM added for additional needs w/ SOB. LBM 07/25 receiving routine bowel care. Will continue to monitor for additional protein needs. Will need HH diet ed once stable prior to d/c given LDL 158 on admit. Recommendations: 1) advance diet per MD to heart healthy 2) ensure pudding TIDWM 3) HH diet ed once stable prior to d/c 4) routine bowel care 5) wt per rx
--- NOTE | 2019-07-26 14:31 | NUR ---
RECEIVED REPORT FROM NIRMAL GOODEN IN ICU
--- NOTE | 2019-07-26 15:00 | NUR ---
PT ARRIVED TO UNIT IN STABLE CONDITION VIA WHEELCHAIR BY NIRMAL GOODEN. PT PUT IN BED AND ORIENTED TO UNIT, CALL LIGHT IN REACH, BED LOW, LOCKED, ON 8L HIGH FLOW NC, RIGHT CHEST TUBE TO SUCTION, NO AIR LEAK. OUTPUT AT 1700. PT LUNGS SOUND DIMINISHED AND CRACKLES RIGHT POSTERIOR BASE. PT IN STABLE CONDITION, WILL CONTINUE TO MONITOR.
--- NOTE | 2019-07-26 16:33 | NUR ---
chest tube at 1730, not 1700
--- NOTE | 2019-07-26 17:25 | NUR ---
DAUGHTER IS BRINGING PTS CLOTHES HOME TO WASH THEM.
--- NOTE | 2019-07-26 18:24 | NUR ---
Problems reprioritized. Patient report given, questions answered & plan of care reviewed with NIRMAL PLATA.
--- NOTE | 2019-07-26 18:25 | NUR ---
Student documentation: I have reviewed and agree with all interventions, assessments performed and documented by CAROL.
--- NOTE | 2019-07-26 18:33 | NUR ---
Patient in room PCU 3018. I have received report from Tasia KINNEY and had the opportunity to ask questions and assume patient care.
--- NOTE | 2019-07-26 18:39 | NUR ---
Student Medication Administration: For this medication-pass time frame, all medication were reviewed, dispensed, administered and documented per hospital policy by CAROL.
[2019-07-26] MEDS: atorvastatin 20mg tablet PO SCH (20:23)
[2019-07-26] MEDS: insulin glargine (Lantus) pen - multi-dose SQ SCH (20:27)
[2019-07-27] MEDS: methylPREDNISolone sod succ 125mg/2ml vial IV SCH ×3 (00:18→16:00)
[2019-07-27] MEDS: ipratropium/albuterol 3ml nebule NEB SCH ×4 (02:54→21:00)
[2019-07-27 03:00] VITALS: BP 129/71
--- NOTE | 2019-07-27 06:30 | NUR ---
Patient in room PCU 3018. I have received report from NIRMAL Obrien and had the opportunity to ask questions and assume patient care. Patient awake in bed with no complaints at this time. All immediate needs met.
[2019-07-27 07:00] VITALS: BP_SYST 132; BP_DIAS 73; BP_DIAS 78
[2019-07-27 07:18] LABS: BASOPHILS % (AUTO) 0.2 % (0-1); EOSINOPHILS % (AUTO) 0 % (0-6); HEMATOCRIT 34.1 % (35.0-45.0); HEMOGLOBIN 11.5 g/dl (12.0-16.0); LYMPHOCYTES # (AUTO) 0.8 X10'3 (1.1-4.8); LYMPHOCYTES % (AUTO) 6.2 % (21-51); MEAN CORPUSCULAR HEMOGLOBIN 31.1 PG (27.0-31.0); MEAN CORPUSCULAR HGB CONC 33.6 g/dL (33.0-36.5); MEAN CORPUSCULAR VOLUME 92.4 FL (78-98); MEAN PLATELET VOLUME 7.9 FL (7.4-10.4); MONOCYTES # (AUTO) 0.3 X10'3 (0-0.9); MONOCYTES % (AUTO) 2.4 % (2-12); NEUTROPHILS # (AUTO) 12.4 X10'3 (1.8-7.7); NEUTROPHILS % (AUTO) 91.2 % (42-75); PLATELET COUNT 421 X10'3 (140-440); RED BLOOD COUNT 3.69 X10'6 (4.20-5.60); RED CELL DISTRIBUTION WIDTH 14.2 % (11.5-14.5); WHITE BLOOD COUNT 13.6 X10'3 (4.5-11.0)
[2019-07-27 07:22] LABS: ALBUMIN 2.4 G/DL (3.4-5.0); ANION GAP 7 (8-16); BLOOD UREA NITROGEN 34 MG/DL (7-18); BUN/CREATININE RATIO 56.7 (6.6-38.0); CALCIUM 8.6 MG/DL (8.5-10.1); CHLORIDE 110 MMOL/L (99-107); GLUCOSE 129 MG/DL (70-104); POTASSIUM 3.9 MMOL/L (3.5-5.1); SODIUM 144 MMOL/L (135-145); TOTAL CARBON DIOXIDE 26.8 MMOL/L (24-32); eGFR > 90 ML/MIN
[2019-07-27] MEDS: docusate sodium 100mg/10ml UD cup OGT SCH ×2 (09:11→20:52)
[2019-07-27] MEDS: pantoprazole 40 MG vial IV SCH (09:11)
[2019-07-27] MEDS: aspirin 81mg tab.chew OGT SCH (09:12)
[2019-07-27] MEDS: methylnaltrexone br 12mg/0.6ml inj***SubQ only SQ SCH (09:12)
[2019-07-27] MEDS: chloestyramine/aspartame 4gm packet PO SCH ×2 (09:12→20:52)
[2019-07-27] MEDS: lactobacillus rhamnosus 10,000 MMU CELLS/CAPSULE PO SCH ×2 (09:12→20:52)
[2019-07-27] MEDS: olanzapine 10mg tablet PO SCH (09:12)
[2019-07-27] MEDS: clopidogrel 75mg tablet OGT SCH (09:12)
[2019-07-27 11:00] VITALS: BP 142/76
--- NOTE | 2019-07-27 13:00 | NUR ---
F/u: Pt not present during RD visit up ambulating w/ PT. Written heart healthy diet ed w/ RD contact information left at bedside. Addendum: 07/27/19 at [address] Amended: Links added.
[2019-07-27 15:00] VITALS: BP 130/75
--- NOTE | 2019-07-27 16:00 | NUR ---
Solumedrol 62.5 mg IV administered by SN Evangelina. 2 patient identifiers used. Medication administration did not save in computer.
[2019-07-27 18:00] VITALS: BP 136/87
--- NOTE | 2019-07-27 18:30 | NUR ---
Patient in room PCU 3018. I have received report from Skye KINNEY and had the opportunity to ask questions and assume patient care.
--- NOTE | 2019-07-27 18:31 | NUR ---
Problems reprioritized. Patient report given, questions answered & plan of care reviewed with Camille KINNEY. Patient stable at transfer of care.
--- NOTE | 2019-07-27 18:32 | NUR ---
Student documentation: I have reviewed and agree with all interventions, assessments performed and documented by Evangelina RENEE. Student Medication Administration: For this medication-pass time frame, all medication were reviewed, dispensed, administered and documented per hospital policy by Evangelina RENEE.
[2019-07-27] MEDS: insulin glargine (Lantus) pen - multi-dose SQ SCH (20:44)
[2019-07-27] MEDS: atorvastatin 20mg tablet PO SCH (20:52)
[2019-07-27 22:45] VITALS: BP_SYST 132; BP_SYST 150; BP_DIAS 75; BP_DIAS 88
[2019-07-28] VITALS (7 sets, daily range): BP systolic 127–139; BP diastolic 65–83
[2019-07-28] MEDS: methylPREDNISolone sod succ 125mg/2ml vial IV SCH ×3 (00:55→16:19)
[2019-07-28] MEDS: ipratropium/albuterol 3ml nebule NEB SCH ×4 (03:00→20:06)
[2019-07-28 05:45] LABS: BASOPHILS % (AUTO) 0.1 % (0-1); EOSINOPHILS % (AUTO) 0 % (0-6); HEMATOCRIT 36.5 % (35.0-45.0); HEMOGLOBIN 12.3 g/dl (12.0-16.0); LYMPHOCYTES # (AUTO) 0.8 X10'3 (1.1-4.8); LYMPHOCYTES % (AUTO) 5.6 % (21-51); MEAN CORPUSCULAR HEMOGLOBIN 30.9 PG (27.0-31.0); MEAN CORPUSCULAR HGB CONC 33.7 g/dL (33.0-36.5); MEAN CORPUSCULAR VOLUME 91.9 FL (78-98); MEAN PLATELET VOLUME 7.8 FL (7.4-10.4); MONOCYTES # (AUTO) 0.3 X10'3 (0-0.9); MONOCYTES % (AUTO) 1.9 % (2-12); NEUTROPHILS # (AUTO) 12.3 X10'3 (1.8-7.7); NEUTROPHILS % (AUTO) 92.4 % (42-75); PLATELET COUNT 429 X10'3 (140-440); RED BLOOD COUNT 3.97 X10'6 (4.20-5.60); RED CELL DISTRIBUTION WIDTH 14.3 % (11.5-14.5); WHITE BLOOD COUNT 13.3 X10'3 (4.5-11.0)
[2019-07-28 06:03] LABS: ALBUMIN 2.5 G/DL (3.4-5.0); ANION GAP 9 (8-16); BLOOD UREA NITROGEN 28 MG/DL (7-18); BUN/CREATININE RATIO 48.3 (6.6-38.0); CALCIUM 8.9 MG/DL (8.5-10.1); CHLORIDE 107 MMOL/L (99-107); CREATININE 0.58 MG/DL (0.40-0.90); GLUCOSE 128 MG/DL (70-104); POTASSIUM 4.1 MMOL/L (3.5-5.1); SODIUM 141 MMOL/L (135-145); TOTAL CARBON DIOXIDE 24.7 MMOL/L (24-32); eGFR > 90 ML/MIN
--- NOTE | 2019-07-28 06:28 | NUR ---
Problems reprioritized. Patient report given, questions answered & plan of care reviewed with Skye KINNEY.
--- NOTE | 2019-07-28 06:30 | NUR ---
Patient in room PCU 3018. I have received report from Camille KINNYE and had the opportunity to ask questions and assume patient care. Patient in bed resting comfortably. No complaints at this time. All immediate needs met.
--- NOTE | 2019-07-28 06:41 | NUR ---
Patient in room U 3018. I have received report from Camille, and had the opportunity to ask questions and assume patient care. Patient resting comfortably in bed
[2019-07-28] MEDS: pantoprazole 40 MG vial IV SCH (07:43)
[2019-07-28] MEDS: chloestyramine/aspartame 4gm packet PO SCH ×3 (07:44→20:34)
[2019-07-28] MEDS: clopidogrel 75mg tablet OGT SCH (07:44)
[2019-07-28] MEDS: olanzapine 10mg tablet PO SCH (07:44)
[2019-07-28] MEDS: lactobacillus rhamnosus 10,000 MMU CELLS/CAPSULE PO SCH ×2 (07:44→20:32)
[2019-07-28] MEDS: aspirin 81mg tab.chew OGT SCH (07:44)
[2019-07-28] MEDS: docusate sodium 100mg/10ml UD cup OGT SCH ×2 (07:45→10:33)
--- NOTE | 2019-07-28 18:28 | NUR ---
Problems reprioritized. Patient report given, questions answered & plan of care reviewed with Camille KINNEY. Patient stable at transfer of care.
--- NOTE | 2019-07-28 18:28 | NUR ---
Problems reprioritized. Patient report given, questions answered & plan of care reviewed with Camille KINNEY.
--- NOTE | 2019-07-28 18:41 | NUR ---
Student documentation: I have reviewed and agree with all interventions, assessments performed and documented by Evangelina KINNEY. Student Medication Administration: For this medication-pass time frame, all medication were reviewed, dispensed, administered and documented per hospital policy by Evangelina RENEE.
--- NOTE | 2019-07-28 18:43 | NUR ---
Patient in room PCU 3018. I have received report from Skye KINNEY and had the opportunity to ask questions and assume patient care.
[2019-07-28] MEDS: atorvastatin 20mg tablet PO SCH (20:34)
[2019-07-28] MEDS: insulin glargine (Lantus) pen - multi-dose SQ SCH (20:35)
[2019-07-28] MEDS ORDERED: diphenhydrAMINE 25mg capsule PO ONE (21:00)
--- NOTE | 2019-07-28 21:21 | NUR ---
Patient requesting a sleep aide. Call made to October TOAST[employer] ELEMENT REPAIRER and she ordered Benadryl x1 dose.
[2019-07-29] MEDS: methylPREDNISolone sod succ 125mg/2ml vial IV SCH ×2 (00:12→08:14)
[2019-07-29] MEDS: ipratropium/albuterol 3ml nebule NEB SCH ×2 (02:36→08:23)
--- NOTE | 2019-07-29 02:37 | NUR ---
Patient asked to please not be woken up for 0200 vitals. Vitals have been trending stable and she is resting comfortably at this time so will leave her asleep.
[2019-07-29 05:53] LABS: ALBUMIN 2.6 G/DL (3.4-5.0); ANION GAP 8 (8-16); BLOOD UREA NITROGEN 24 MG/DL (7-18); BUN/CREATININE RATIO 40.7 (6.6-38.0); CALCIUM 8.8 MG/DL (8.5-10.1); CHLORIDE 107 MMOL/L (99-107); CREATININE 0.59 MG/DL (0.40-0.90); GLUCOSE 124 MG/DL (70-104); SODIUM 141 MMOL/L (135-145); TOTAL CARBON DIOXIDE 25.7 MMOL/L (24-32); eGFR > 90 ML/MIN
[2019-07-29 05:55] LABS: POTASSIUM 4.2 MMOL/L (3.5-5.1)
[2019-07-29 05:59] LABS: BASOPHILS % (AUTO) 0.1 % (0-1); EOSINOPHILS % (AUTO) 0 % (0-6); HEMATOCRIT 38.1 % (35.0-45.0); HEMOGLOBIN 12.7 g/dl (12.0-16.0); LYMPHOCYTES # (AUTO) 0.7 X10'3 (1.1-4.8); MEAN CORPUSCULAR HEMOGLOBIN 30.8 PG (27.0-31.0); MEAN CORPUSCULAR HGB CONC 33.4 g/dL (33.0-36.5); MEAN CORPUSCULAR VOLUME 92.1 FL (78-98); MEAN PLATELET VOLUME 7.8 FL (7.4-10.4); MONOCYTES # (AUTO) 0.3 X10'3 (0-0.9); MONOCYTES % (AUTO) 2.4 % (2-12); NEUTROPHILS # (AUTO) 12.5 X10'3 (1.8-7.7); NEUTROPHILS % (AUTO) 92.5 % (42-75); PLATELET COUNT 400 X10'3 (140-440); RED BLOOD COUNT 4.13 X10'6 (4.20-5.60); RED CELL DISTRIBUTION WIDTH 14.3 % (11.5-14.5); WHITE BLOOD COUNT 13.5 X10'3 (4.5-11.0)
[2019-07-29 06:00] VITALS: BP 121/63
--- NOTE | 2019-07-29 06:30 | NUR ---
Problems reprioritized. Patient report given, questions answered & plan of care reviewed with Isa KINNEY.
--- NOTE | 2019-07-29 06:30 | NUR ---
Patient in room PCU 3018. I have received report from NIRMAL Obrien and had the opportunity to ask questions and assume patient care. Patient is in bed watching the morning news at this time. No complaints. Will continue to monitor.
[2019-07-29] MEDS: docusate sodium 100mg/10ml UD cup OGT SCH (08:00)
[2019-07-29] MEDS: chloestyramine/aspartame 4gm packet PO SCH (08:00)
[2019-07-29] MEDS: methylnaltrexone br 12mg/0.6ml inj***SubQ only SQ SCH ×2 (08:00→08:15)
[2019-07-29] MEDS: pantoprazole 40 MG vial IV SCH (08:12)
[2019-07-29] MEDS: lactobacillus rhamnosus 10,000 MMU CELLS/CAPSULE PO SCH (08:13)
[2019-07-29] MEDS: olanzapine 10mg tablet PO SCH (08:13)
[2019-07-29] MEDS: aspirin 81mg tab.chew OGT SCH (08:13)
[2019-07-29] MEDS: clopidogrel 75mg tablet OGT SCH (08:13)
[2019-07-29] MEDS ORDERED: HYDROcodone/acetaminophen 5mg/325mg tablet PO PRN (09:25)
[2019-07-29] MEDS ORDERED: baclofen 10mg tablet PO PRN (09:25)
[2019-07-29] MEDS ORDERED: ketorolac trometh. 30mg/ml inj. IM SCH (09:25)
--- NOTE | 2019-07-29 10:00 | NUR ---
Patient states she came in with her wedding ring on. Patient believes she may have accidentally thrown it away in a tissue. ICU, Security, and patients chart have all been checked with no results. Patient has been informed that it has not been found or turned in at this time.
[2019-07-29 11:00] VITALS: BP 142/86
--- NOTE | 2019-07-29 11:55 | NUR ---
Called Desmond to give report. Report has been given to Staci. Staci has been informed that the patients Midline has been removed per Case Management, Lacey. Reported: chest tube dressings are CDI, pt on RA, pts medications taken for the day, ambulation status, code status, v/s, when patient was intubated/extubated, and need for PT. All questions have been answered at this time.
--- NOTE | 2019-07-29 12:16 | NUR ---
Patient has been transported via [facility] to [facility]. Patients belongings have been sent with the patient. Patient has been wheeled down to the vehicle. Patient is on Room Air and stating at 98%. Patients hospital bracelet has been removed, so has her midline, and tele box. Midline found to be fully intact. Patient has no complaints at this time and all questions have been answered at this time.
== END 2019-07-29 12:28 | DRG 270 ==
LOC: ER 21:17 → ICU 2S 07-11 00:31 → PCU 3S 07-26 15:17
PROVIDERS: ADMIT Internal Medicine Critical Care Medicine; ATTEND Internal Medicine Critical Care Medicine
PROC: 4A023N7 Measurement of Cardiac Sampling and Pressure, Left Heart, Percutaneous Approach (ICD-10-PCS; principal; 2019-07-10)
PROC: 5A02210 Assistance with Cardiac Output using Balloon Pump, Continuous (ICD-10-PCS; 2019-07-10)
PROC: 0BH17EZ Insertion of Endotracheal Airway into Trachea, Via Natural or Artificial Opening (ICD-10-PCS; 2019-07-10)
PROC: 027034Z Dilation of Coronary Artery, One Artery with Drug-eluting Intraluminal Device, Percutaneous Approach (ICD-10-PCS; 2019-07-10)
PROC: B2111ZZ Fluoroscopy of Multiple Coronary Arteries using Low Osmolar Contrast (ICD-10-PCS; 2019-07-10)
PROC: B2151ZZ Fluoroscopy of Left Heart using Low Osmolar Contrast (ICD-10-PCS; 2019-07-10)
PROC: B3111ZZ Fluoroscopy of Right Brachiocephalic-Subclavian Artery using Low Osmolar Contrast (ICD-10-PCS; 2019-07-10)
PROC: B3121ZZ Fluoroscopy of Left Subclavian Artery using Low Osmolar Contrast (ICD-10-PCS; 2019-07-10)
PROC: B41F1ZZ Fluoroscopy of Right Lower Extremity Arteries using Low Osmolar Contrast (ICD-10-PCS; 2019-07-10)
PROC: 5A1955Z Respiratory Ventilation, Greater than 96 Consecutive Hours (ICD-10-PCS; 2019-07-11)
PROC: 02HV33Z Insertion of Infusion Device into Superior Vena Cava, Percutaneous Approach (ICD-10-PCS; 2019-07-11)
PROC: 0W9B30Z Drainage of Left Pleural Cavity with Drainage Device, Percutaneous Approach (ICD-10-PCS; 2019-07-16)
PROC: 0W9930Z Drainage of Right Pleural Cavity with Drainage Device, Percutaneous Approach (ICD-10-PCS; 2019-07-16)
PROC: 30233N1 Transfusion of Nonautologous Red Blood Cells into Peripheral Vein, Percutaneous Approach (ICD-10-PCS; 2019-07-17)
PROC: 5A09357 Assistance with Respiratory Ventilation, Less than 24 Consecutive Hours, Continuous Positive Airway Pressure (ICD-10-PCS; 2019-07-20)
PROC: 3E0234Z Introduction of Serum, Toxoid and Vaccine into Muscle, Percutaneous Approach (ICD-10-PCS; 2019-07-20)
PROC: 5A1955Z Respiratory Ventilation, Greater than 96 Consecutive Hours (ICD-10-PCS; 2019-07-20)
PROC: 0BH17EZ Insertion of Endotracheal Airway into Trachea, Via Natural or Artificial Opening (ICD-10-PCS; 2019-07-20)
PROC: 30233N1 Transfusion of Nonautologous Red Blood Cells into Peripheral Vein, Percutaneous Approach (ICD-10-PCS; 2019-07-22)
PROC: 5A09357 Assistance with Respiratory Ventilation, Less than 24 Consecutive Hours, Continuous Positive Airway Pressure (ICD-10-PCS; 2019-07-24)
DX: I21.09 ST elevation (STEMI) myocardial infarction involving other coronary artery of anterior wall (principal); R57.0 Cardiogenic shock; I49.01 Ventricular fibrillation; J96.00 Acute respiratory failure, unspecified whether with hypoxia or hypercapnia; J18.9 Pneumonia, unspecified organism; E87.2 Acidosis; J44.0 Chronic obstructive pulmonary disease with (acute) lower respiratory infection; J91.8 Pleural effusion in other conditions classified elsewhere; F20.9 Schizophrenia, unspecified; F17.200 Nicotine dependence, unspecified, uncomplicated; I25.10 Atherosclerotic heart disease of native coronary artery without angina pectoris; I25.2 Old myocardial infarction; Z23 Encounter for immunization; Z95.5 Presence of coronary angioplasty implant and graft; B96.3 Hemophilus influenzae [H. influenzae] as the cause of diseases classified elsewhere
CPT/HCPCS: 31500; 32555; 32557; 36415; 36600; 71045; 76937; 80048; 80053; 80061; 81001; 82803; 82810; 82945; 82948; 83036; 83605; 83615; 83735; 83880; 83986; 84100; 84132; 84134; 84145; 84157; 84443; 84484; 85018; 85025; 85610; 85730; 86885; 86900; 86901; 86920; 87040; 87070; 87075; 87077; 87081; 87185; 89051; 90732; 92508; 92616; 93005; 93306; 94002; 94003; 94640; 94660; 94760; 97110; 97116; 97161; 97530; 99291; C9113; G0378; J0282; J0330; J0696; J1250; J1644; J1720; J1815; J1940; J2001; J2060; J2212; J2250; J2405; J2704; J2765; J2930; J3010; J3246; J3475; J3480; J7030; J7040; P9016; Q0163; Q9967

== ENCOUNTER 2019-08-13 10:29 | Emergency (ER) | payer MEDICARE, OTHER ==
[~2019-08-13] VITALS: Ht 149.9 cm; Wt 51.8 kg
[~2019-08-13 10:29] MED LIST changes: +ASPI-974 PO; +ATOR80TA PO; +METO25TA6 PO; +NITR0.4T48 SL; +QUELT PO; -etomidate 2mg/ml inj. ONE; -heparin 10,000 units/1 ML INJ ONE; -heparin, porcine-25,000 units/D5-250ml premix IV ONE; -nitroGLYCERIN 0.4mg SUBLingual tab SL ONE; -normal saline 1000ML IV soln ONE; -rocuronium 10mg/ml inj IV ONE; -sod chloride 0.9% 10ml flush syringe IV ONE
[2019-08-13 10:49] LABS: BASOPHILS # (AUTO) 0.1 X10'3 (0-0.2); BASOPHILS % (AUTO) 1.3 % (0-1); EOSINOPHILS # (AUTO) 0.3 X10'3 (0-0.9); EOSINOPHILS % (AUTO) 4.2 % (0-6); HEMATOCRIT 37.7 % (35.0-45.0); HEMOGLOBIN 12.6 g/dl (12.0-16.0); LYMPHOCYTES # (AUTO) 1.4 X10'3 (1.1-4.8); LYMPHOCYTES % (AUTO) 18.1 % (21-51); MEAN CORPUSCULAR HEMOGLOBIN 31.1 PG (27.0-31.0); MEAN CORPUSCULAR HGB CONC 33.5 g/dL (33.0-36.5); MEAN CORPUSCULAR VOLUME 92.7 FL (78-98); MEAN PLATELET VOLUME 7.8 FL (7.4-10.4); MONOCYTES # (AUTO) 0.6 X10'3 (0-0.9); MONOCYTES % (AUTO) 7.6 % (2-12); NEUTROPHILS # (AUTO) 5.2 X10'3 (1.8-7.7); NEUTROPHILS % (AUTO) 68.8 % (42-75); PLATELET COUNT 227 X10'3 (140-440); RED BLOOD COUNT 4.07 X10'6 (4.20-5.60); RED CELL DISTRIBUTION WIDTH 14.5 % (11.5-14.5); WHITE BLOOD COUNT 7.5 X10'3 (4.5-11.0)
[2019-08-13] MEDS ORDERED: HYDR-4353 PO (10:58)
[2019-08-13] MEDS ORDERED: CLOP75TA35 PO (10:58)
[2019-08-13 11:05] LABS: ALANINE AMINOTRANSFERASE 24 U/L (12-78); ALBUMIN 2.8 G/DL (3.4-5.0); ALBUMIN/GLOBULIN RATIO 0.8 (1.1-1.5); ALKALINE PHOSPHATASE 59 IU/L (46-116); ANION GAP 9 (8-16); ASPARTATE AMINO TRANSFERASE 18 U/L (10-37); BILIRUBIN,TOTAL 0.5 MG/DL (0.1-1.0); BLOOD UREA NITROGEN 21 MG/DL (7-18); BUN/CREATININE RATIO 32.3 (6.6-38.0); CALCIUM 8.5 MG/DL (8.5-10.1); CHLORIDE 108 MMOL/L (99-107); CREATININE 0.65 MG/DL (0.40-0.90); GLUCOSE 91 MG/DL (70-104); POTASSIUM 3.9 MMOL/L (3.5-5.1); SODIUM 140 MMOL/L (135-145); TOTAL CARBON DIOXIDE 23.1 MMOL/L (24-32); TOTAL PROTEIN 6.3 G/DL (6.4-8.2); eGFR > 90 ML/MIN
[2019-08-13 11:13] LABS: MAGNESIUM 1.7 MG/DL (1.5-2.4)
[2019-08-13 15:02] VITALS: BP 105/68
== END 2019-08-13 15:05 | disposition home or self-care (01) ==
LOC: ER 10:29
DX: R07.89 Other chest pain (principal); R11.10 Vomiting, unspecified; I25.10 Atherosclerotic heart disease of native coronary artery without angina pectoris; I25.2 Old myocardial infarction; Z95.5 Presence of coronary angioplasty implant and graft; Z79.82 Long term (current) use of aspirin; Z79.899 Other long term (current) drug therapy
CPT/HCPCS: 36415; 71045; 80053; 83735; 83880; 84484; 85025; 93005; 99284

== ENCOUNTER 2019-11-12 14:41 | Emergency (ER) | payer MEDICARE, OTHER ==
[~2019-11-12] VITALS: Ht 149.9 cm; Wt 54.5 kg
[~2019-11-12 14:41] MED LIST changes: +CLOP75TA35 PO; +HYDR-4353 PO; -QUELT PO
[2019-11-12] MEDS ORDERED: TAM75C PO (15:14)
[2019-11-12] MEDS ORDERED: BENZ-16 PO (15:14)
[2019-11-12] MEDS ORDERED: AZIT250T83 PO (15:14)
[2019-11-12 15:23] VITALS: BP 114/70
== END 2019-11-12 15:24 | disposition home or self-care (01) ==
LOC: ER 14:41
DX: R05 Cough (principal); R50.9 Fever, unspecified; I25.10 Atherosclerotic heart disease of native coronary artery without angina pectoris; I25.2 Old myocardial infarction; Z98.61 Coronary angioplasty status; Z79.82 Long term (current) use of aspirin; Z79.899 Other long term (current) drug therapy
CPT/HCPCS: 99283

== ENCOUNTER 2020-05-02 22:55 | Inpatient (IN) | payer MEDICARE, OTHER ==
[~2020-05-02] VITALS: Ht 149.9 cm; Wt 56.8 kg
[~2020-05-02 22:55] MED LIST changes: -ASPI-974 PO; +ASPI81TA52 PO; +EZET10TA48 PO; -HYDR-4353 PO; +LISI2.5T2 PO; +PANT-47 PO
[2020-05-02 23:13] LABS: BASOPHILS # (AUTO) 0.1 X10'3 (0-0.2); BASOPHILS % (AUTO) 0.9 % (0-1); EOSINOPHILS # (AUTO) 0.4 X10'3 (0-0.9); EOSINOPHILS % (AUTO) 5.2 % (0-6); HEMOGLOBIN 14.2 g/dl (12.0-16.0); LYMPHOCYTES # (AUTO) 1.7 X10'3 (1.1-4.8); LYMPHOCYTES % (AUTO) 21.7 % (21-51); MEAN CORPUSCULAR HEMOGLOBIN 30.7 PG (27.0-31.0); MEAN CORPUSCULAR HGB CONC 33.9 g/dL (33.0-36.5); MEAN CORPUSCULAR VOLUME 90.6 FL (78-98); MEAN PLATELET VOLUME 8.1 FL (7.4-10.4); MONOCYTES # (AUTO) 0.7 X10'3 (0-0.9); MONOCYTES % (AUTO) 8.8 % (2-12); NEUTROPHILS # (AUTO) 5.1 X10'3 (1.8-7.7); NEUTROPHILS % (AUTO) 63.4 % (42-75); PLATELET COUNT 248 X10'3 (140-440); RED BLOOD COUNT 4.64 X10'6 (4.20-5.60); RED CELL DISTRIBUTION WIDTH 13.3 % (11.5-14.5)
[2020-05-02 23:26] LABS: ALANINE AMINOTRANSFERASE 41 U/L (12-78); ALBUMIN/GLOBULIN RATIO 1.1 (1.1-1.5); ALKALINE PHOSPHATASE 47 IU/L (46-116); ANION GAP 11 (8-16); ASPARTATE AMINO TRANSFERASE 34 U/L (10-37); BILIRUBIN,TOTAL 0.4 MG/DL (0.1-1.0); BLOOD UREA NITROGEN 16 MG/DL (7-18); BUN/CREATININE RATIO 17.4 (6.6-38.0); CALCIUM 9.3 MG/DL (8.5-10.1); CHLORIDE 103 MMOL/L (99-107); CREATININE 0.92 MG/DL (0.40-0.90); GLUCOSE 112 MG/DL (70-104); SODIUM 140 MMOL/L (135-145); TOTAL CARBON DIOXIDE 25.8 MMOL/L (24-32); TOTAL PROTEIN 7.6 G/DL (6.4-8.2); eGFR 61 ML/MIN
[2020-05-02 23:33] LABS: MAGNESIUM 1.8 MG/DL (1.5-2.4)
[2020-05-02] MEDS ORDERED: morphine 4 MG/ML inj SYRINge IV ONE (23:40)
[2020-05-02] MEDS ORDERED: normal saline 1000ML IV soln IVB ONE (23:40)
[2020-05-02] MEDS ORDERED: ondansetron/PF 4mg/2ml inj IV ONE (23:40)
[2020-05-02] MEDS ORDERED: nitroGLYCERIN 0.4mg SUBLingual tab SL PRN (23:45)
[2020-05-02] MEDS ORDERED: ondansetron/PF 4mg/2ml inj IV PRN (23:45)
[2020-05-02] MEDS ORDERED: morphine 2 MG/ML inj. syringe IV PRN ×2 (23:45)
[2020-05-02] MEDS ORDERED: magnesium hydroxide 30ml (MOM) UD suspension PO PRN (23:45)
[2020-05-02] MEDS ORDERED: aminophylline 250mg/10ml inj. IV PRN (23:45)
[2020-05-02] MEDS ORDERED: acetaminophen 325mg tablet PO PRN (23:45)
[2020-05-02] MEDS ORDERED: regadenoson 0.4mg/5ml syringe IV PRN (23:45)
[2020-05-02] MEDS ORDERED: metoprolol tartrate 1mg/ml inj IV PRN (23:45)
[2020-05-02] MEDS ORDERED: mag hydrox/Alum hydrox/simeth 30ml oral suspension PO PRN (23:45)
[2020-05-03] VITALS (16 sets, daily range): BP systolic 84–120; BP diastolic 52–70
[2020-05-03] MEDS ORDERED: nitroGLYCERIN 0.4mg/hour patch TD ONE (00:15)
[2020-05-03] MEDS: normal saline 1000ml 1,000 ML IV SCH ×3 (00:17→19:42)
[2020-05-03] MEDS ORDERED: nitroGLYCERIN 0.4mg SUBLingual tab SL PRN (00:25)
--- NOTE | 2020-05-03 03:28 | NUR ---
Patient in room ED 7. I have received report from Ashly KINNEY and had the opportunity to ask questions and assume patient care.
--- NOTE | 2020-05-03 03:45 | NUR ---
Patient arrived on unit, alert and oriented. Vital signs obtained and patient assessed. 97%- 104/63 - 78 - 16 Two Rn skin check preformed and telemetry monitoring initiated. Will continue to assess and monitor.
[2020-05-03 06:01] LABS: BASOPHILS % (AUTO) 0.5 % (0-1); EOSINOPHILS # (AUTO) 0.2 X10'3 (0-0.9); HEMOGLOBIN 12.5 g/dl (12.0-16.0); LYMPHOCYTES # (AUTO) 2.1 X10'3 (1.1-4.8); LYMPHOCYTES % (AUTO) 25.9 % (21-51); MEAN CORPUSCULAR HEMOGLOBIN 31.2 PG (27.0-31.0); MEAN CORPUSCULAR HGB CONC 33.9 g/dL (33.0-36.5); MEAN CORPUSCULAR VOLUME 92.2 FL (78-98); MONOCYTES # (AUTO) 0.6 X10'3 (0-0.9); MONOCYTES % (AUTO) 8.1 % (2-12); NEUTROPHILS % (AUTO) 62.5 % (42-75); PLATELET COUNT 216 X10'3 (140-440); RED BLOOD COUNT 4.01 X10'6 (4.20-5.60)
[2020-05-03 06:05] LABS: ALBUMIN 3.2 G/DL (3.4-5.0); ANION GAP 4 (8-16); BLOOD UREA NITROGEN 14 MG/DL (7-18); BUN/CREATININE RATIO 18.2 (6.6-38.0); CALCIUM 8.3 MG/DL (8.5-10.1); CHLORIDE 109 MMOL/L (99-107); CREATININE 0.77 MG/DL (0.40-0.90); GLUCOSE 97 MG/DL (70-104); POTASSIUM 4.1 MMOL/L (3.5-5.1); SODIUM 139 MMOL/L (135-145); TOTAL CARBON DIOXIDE 25.6 MMOL/L (24-32); eGFR 75 ML/MIN
--- NOTE | 2020-05-03 06:11 | NUR ---
PAGER ID: [phone] MESSAGE: [id number] Helene Brasher Critical lab value- Troponin 2.84 Mera Quintanilla PCU
--- NOTE | 2020-05-03 06:18 | NUR ---
Problems reprioritized. Patient report given, questions answered & plan of care reviewed with Skye KINNEY and Elyssa KINNEY.
--- NOTE | 2020-05-03 06:24 | NUR ---
Patient in room PCU 3013. I have received report from Mera KINNEY and had the opportunity to ask questions and assume patient care. Patient sleeping on transfer of care. All current needs met
--- NOTE | 2020-05-03 06:28 | NUR ---
Patient in room PCU 3013. I have received report from NIRMAL Tesfaye and had the opportunity to ask questions and assume patient care. Patient asleep in bed and resting. In no acute distress. All immediate needs met at this time.
[2020-05-03] MEDS ORDERED: heparin 25,000 UNIT/250ml bag 250 ML IV SCH (06:34)
[2020-05-03] MEDS ORDERED: heparin 10,000 units/1 ML INJ IV PRN (06:35)
[2020-05-03] MEDS ORDERED: heparin 10,000 units/1 ML INJ IV ONE (06:35)
--- NOTE | 2020-05-03 06:49 | NUR ---
New orders from Dr. Xavier: Heparin gtt for cardiac.
--- NOTE | 2020-05-03 07:44 | NUR ---
New order from Dr. Dawson: Tylenol for pain 650 mg.
[2020-05-03] MEDS ORDERED: acetaminophen 325mg tablet PO PRN (07:45)
--- NOTE | 2020-05-03 07:52 | NUR ---
Per Dr. Dawson: D/C nitro patch. Treat chest pain with morphine.
[2020-05-03] MEDS ORDERED: heparin, porcine 5000 units/ml vial SQ SCH (08:00)
[2020-05-03] MEDS ORDERED: iohexol 350 MG/ML 50ML vial IV ONE (08:08)
[2020-05-03] MEDS ORDERED: iohexol 350MG/ML 100ml bottle IV ONE (08:08)
[2020-05-03] MEDS ORDERED: LIDOcaine 1% (10mg/ml)w/preservative injection 20ml MDV ONE (08:08)
[2020-05-03] MEDS ORDERED: midazolam 2 mg/2 ml injection ONE (08:08)
[2020-05-03] MEDS ORDERED: heparin 1,000unit/ml 10ml vial 10 ML ONE (08:08)
[2020-05-03] MEDS ORDERED: fentaNYL/PF 50MCG/1 ML 2ML syringe ONE (08:08)
[2020-05-03 08:21] LABS: BASOPHILS # (AUTO) 0.1 X10'3 (0-0.2); EOSINOPHILS # (AUTO) 0.3 X10'3 (0-0.9); EOSINOPHILS % (AUTO) 4.4 % (0-6); HEMATOCRIT 36.6 % (35.0-45.0); HEMOGLOBIN 12.4 g/dl (12.0-16.0); LYMPHOCYTES # (AUTO) 2.4 X10'3 (1.1-4.8); LYMPHOCYTES % (AUTO) 30.1 % (21-51); MEAN CORPUSCULAR HEMOGLOBIN 30.9 PG (27.0-31.0); MEAN CORPUSCULAR HGB CONC 33.8 g/dL (33.0-36.5); MEAN CORPUSCULAR VOLUME 91.3 FL (78-98); MEAN PLATELET VOLUME 8.1 FL (7.4-10.4); MONOCYTES # (AUTO) 0.7 X10'3 (0-0.9); MONOCYTES % (AUTO) 8.5 % (2-12); NEUTROPHILS # (AUTO) 4.4 X10'3 (1.8-7.7); PLATELET COUNT 214 X10'3 (140-440); RED CELL DISTRIBUTION WIDTH 13.3 % (11.5-14.5); WHITE BLOOD COUNT 7.9 X10'3 (4.5-11.0)
--- NOTE | 2020-05-03 09:21 | NUR ---
Received report from Tom KINNEY in stores laborer. No stents placed. Awaiting patient arrival to room.
[2020-05-03] MEDS ORDERED: HYDROcodone/acetaminophen 5mg/325mg tablet PO PRN (09:50)
[2020-05-03] MEDS ORDERED: proCHLORperazine 10 MG/2 ml inj IV PRN (09:50)
[2020-05-03] MEDS ORDERED: HYDROcodone/acetaminophen 10/325mg tab PO PRN (09:55)
[2020-05-03 11:35] LABS: PARTIAL THROMBOPLASTIN TIME 47 SECONDS (22-32)
--- NOTE | 2020-05-03 11:46 | NUR ---
Paged Dr. Dawson: PAGER ID: [phone] MESSAGE: RE: Helene Brasher [id number] Critical lab: 12 hour troponin 6.17. No chest pain reported from patient. Skye [phone]
[2020-05-03] MEDS: ezetimibe 10mg tablet PO SCH (12:20)
[2020-05-03] MEDS: metoprolol tartrate 12.5mg (1/2 tablet) PO SCH ×2 (12:21→20:10)
[2020-05-03] MEDS: clopidogrel 75mg tablet PO SCH (12:21)
[2020-05-03] MEDS: pantoprazole 40mg Tablet.DR PO SCH (12:24)
[2020-05-03] MEDS: lisinopril 2.5mg tablet PO SCH ×2 (12:24→20:08)
--- NOTE | 2020-05-03 12:27 | NUR ---
Vitals machine was reading patient's heart rate between 58 and 71. Took manual radial heart rate for one minute and apical heart rate for one minute and both were 70. therefore, administered patient's cardiac meds as ordered.
[2020-05-03] MEDS: aspirin 81mg tablet.DR PO SCH (16:19)
--- NOTE | 2020-05-03 18:16 | NUR ---
Patient in room PCU 3013. I have received report from NIRMAL Cheung and had the opportunity to ask questions and assume patient care.
--- NOTE | 2020-05-03 18:32 | NUR ---
Problems reprioritized. Patient report given, questions answered & plan of care reviewed with Yanira KINNEY. Patient stable at transfer of care.
--- NOTE | 2020-05-03 18:35 | NUR ---
Orientee documentation: I have reviewed and agree with all interventions, assessments performed and documented by NIRMAL Augustin. Orientee Medication Administration: For this medication-pass time frame, all medication were reviewed, dispensed, administered and documented per hospital policy by Demetria KINNEY.
--- NOTE | 2020-05-03 20:13 | NUR ---
Tylenol reasessment not done by dayshift
[2020-05-03] MEDS ORDERED: atorvastatin 20mg tablet PO SCH (21:00)
--- NOTE | 2020-05-04 00:16 | NUR ---
Ambulated patient around PCU, she had 0 chest pain.
[2020-05-04 02:02] VITALS: BP 97/61
[2020-05-04] MEDS: normal saline 1000ml 1,000 ML IV SCH ×2 (05:42→08:41)
[2020-05-04 05:47] LABS: BASOPHILS # (AUTO) 0.1 X10'3 (0-0.2); EOSINOPHILS # (AUTO) 0.4 X10'3 (0-0.9); EOSINOPHILS % (AUTO) 5.6 % (0-6); HEMATOCRIT 37.3 % (35.0-45.0); HEMOGLOBIN 12.6 g/dl (12.0-16.0); LYMPHOCYTES # (AUTO) 1.7 X10'3 (1.1-4.8); LYMPHOCYTES % (AUTO) 21.7 % (21-51); MEAN CORPUSCULAR HEMOGLOBIN 31.3 PG (27.0-31.0); MEAN CORPUSCULAR HGB CONC 33.8 g/dL (33.0-36.5); MEAN CORPUSCULAR VOLUME 92.5 FL (78-98); MEAN PLATELET VOLUME 8.3 FL (7.4-10.4); MONOCYTES # (AUTO) 0.6 X10'3 (0-0.9); MONOCYTES % (AUTO) 8.1 % (2-12); NEUTROPHILS % (AUTO) 63.6 % (42-75); PLATELET COUNT 207 X10'3 (140-440); RED BLOOD COUNT 4.04 X10'6 (4.20-5.60); RED CELL DISTRIBUTION WIDTH 13.3 % (11.5-14.5); WHITE BLOOD COUNT 7.8 X10'3 (4.5-11.0)
[2020-05-04 06:00] VITALS: BP 131/70
[2020-05-04 06:02] LABS: ALBUMIN 2.9 G/DL (3.4-5.0); ANION GAP 5 (8-16); BLOOD UREA NITROGEN 11 MG/DL (7-18); BUN/CREATININE RATIO 15.9 (6.6-38.0); CALCIUM 8.4 MG/DL (8.5-10.1); CHLORIDE 110 MMOL/L (99-107); CHOL/HDL RATIO 3.2 (0.00-4.99); CHOLESTEROL 131 MG/DL (0-200); CREATININE 0.69 MG/DL (0.40-0.90); GLUCOSE 92 MG/DL (70-104); HDL CHOLESTEROL 41 MG/DL (35-60); LDL CHOLESTEROL 64 MG/DL (50-100); POTASSIUM 4.6 MMOL/L (3.5-5.1); SODIUM 141 MMOL/L (135-145); TOTAL CARBON DIOXIDE 26.3 MMOL/L (24-32); TRIGLYCERIDES 148 MG/DL (20-135); eGFR 85 ML/MIN
--- NOTE | 2020-05-04 06:30 | NUR ---
Problems reprioritized. Patient report given, questions answered & plan of care reviewed with NIRMAL Cheung.
--- NOTE | 2020-05-04 06:32 | NUR ---
Patient in room PCU 3013. I have received report from Yanira KINNEY and had the opportunity to ask questions and assume patient care. Patient sleeping on transfer of care. all current needs met
[2020-05-04] MEDS: aspirin 81mg tablet.DR PO SCH (08:28)
[2020-05-04] MEDS: lisinopril 2.5mg tablet PO SCH (08:29)
[2020-05-04] MEDS: pantoprazole 40mg Tablet.DR PO SCH (08:30)
[2020-05-04] MEDS: clopidogrel 75mg tablet PO SCH (08:30)
[2020-05-04] MEDS: metoprolol tartrate 12.5mg (1/2 tablet) PO SCH (08:30)
[2020-05-04] MEDS: ezetimibe 10mg tablet PO SCH (08:30)
[2020-05-04 11:00] VITALS: BP 107/66
[2020-05-04] MEDS ORDERED: RANO500T3 PO (11:03)
--- NOTE | 2020-05-04 13:23 | NUR ---
Orientee documentation: I have reviewed and agree with all interventions, assessments performed and documented by NIRMAL Augustin. Orientee Medication Administration: For this medication-pass time frame, all medication were reviewed, dispensed, administered and documented per hospital policy by NIRMAL Augustin.
--- NOTE | 2020-05-04 14:49 | NUR ---
Patient stable for discharge per MD orders. All discharge instructions reviewed with patient and all questions answered prior to discharge. Prescriptions faxed to [facility] in [place]. PIV discontinued, catheter intact and site bleeding controlled. Tele monitor discontinued and teleprinter notified. All belongings collected, placed in patient belongings bag and sent with patient. Patient wheeled to lobby in wheelchair and transported home by in personal vehicle.
--- NOTE | 2020-05-06 10:38 | NUR ---
Case Management DC follow up: spoke to pt & pt spouse, Lester, via telephone. s/p: CP, SOB Reports:"doing fine, really good, a lot better". Spouse notes, "it's hard to get her to rest, she's doing good for a change". spouses have good rapport, support and humor between them. No noticeable SOB during phone conversation. Denies: acute/continuous CP/pressure, emergent SOB, resp distress, N/V, JOSEPH, blurry vision, vertigo, syncope episodes, weakness,emergent general pain, abd tenderness/distension, bladder pain, dysuria, polyuria, hematuria, retention, constipation, diarrhea, fever, unexplained bleeding, bruising. Verbalizes understanding of s/s that warrant 9-11/ER visit for further evaluation. Verbalizes understanding of new Rx: Ranexa and why prescribed, resumes current Rx, taking as ordered, no ase r/t polypharmacy. Acknowledges need to schedule/keep follow up appts w/ PCP/Lindsay, Financial Administrator/Jovan. pt states will be calling both to schedule follow ups today 05/06/20. Verbalizes compliance w/DC aftercare. Needs met, questions answered at DC, no further questions or concerns at this time.
== END 2020-05-04 14:43 | disposition home or self-care (01) | DRG 282 ==
LOC: ER 22:56 → OBSVTOIN 23:42 → INTOOBSV 23:42 → ED HOLD 23:42 → UNDOADMOB 23:42 → PCU 3S 05-03 03:40 → ED HOLD 05-03 03:40 → OBSVTOIN 05-03 15:00 → PCU 3S 05-03 15:00 → ED HOLD 05-03 15:00
PROVIDERS: ADMIT Family Medicine; ATTEND Internal Medicine
PROC: 4A023N7 Measurement of Cardiac Sampling and Pressure, Left Heart, Percutaneous Approach (ICD-10-PCS; principal; 2020-05-03)
PROC: B2151ZZ Fluoroscopy of Left Heart using Low Osmolar Contrast (ICD-10-PCS; 2020-05-03)
PROC: B2111ZZ Fluoroscopy of Multiple Coronary Arteries using Low Osmolar Contrast (ICD-10-PCS; 2020-05-03)
DX: I21.4 Non-ST elevation (NSTEMI) myocardial infarction (principal); I25.10 Atherosclerotic heart disease of native coronary artery without angina pectoris; I10 Essential (primary) hypertension; E78.5 Hyperlipidemia, unspecified; J44.9 Chronic obstructive pulmonary disease, unspecified; K21.9 Gastro-esophageal reflux disease without esophagitis; Z95.5 Presence of coronary angioplasty implant and graft
CPT/HCPCS: 36415; 71045; 80048; 80053; 80061; 83735; 83880; 84484; 85025; 85610; 85730; 87081; 93005; 93306; 93458; 99152; 99153; 99285; A4620; A6258; C1760; C1769; C1894; G0378; J1644; J2001; J2250; J2270; J2405; J3010; J7030; Q9967

== ENCOUNTER 2020-09-02 11:55 | Emergency (ER) | payer MEDICARE, OTHER ==
[~2020-09-02] VITALS: Ht 149.9 cm; Wt 59.1 kg
[~2020-09-02 11:55] MED LIST changes: +RANO500T3 PO
[2020-09-02 12:50] LABS: BASOPHILS # (AUTO) 0.1 X10'3 (0-0.2); EOSINOPHILS # (AUTO) 0.5 X10'3 (0-0.9); EOSINOPHILS % (AUTO) 6.2 % (0-6); HEMATOCRIT 41.3 % (35.0-45.0); LYMPHOCYTES % (AUTO) 27.1 % (21-51); MEAN CORPUSCULAR HGB CONC 33.9 g/dL (33.0-36.5); MEAN CORPUSCULAR VOLUME 91.5 FL (78-98); MEAN PLATELET VOLUME 8.4 FL (7.4-10.4); MONOCYTES # (AUTO) 0.6 X10'3 (0-0.9); MONOCYTES % (AUTO) 8.3 % (2-12); NEUTROPHILS # (AUTO) 4.1 X10'3 (1.8-7.7); NEUTROPHILS % (AUTO) 57.4 % (42-75); PLATELET COUNT 240 X10'3 (140-440); RED BLOOD COUNT 4.52 X10'6 (4.20-5.60); RED CELL DISTRIBUTION WIDTH 12.9 % (11.5-14.5); WHITE BLOOD COUNT 7.2 X10'3 (4.5-11.0)
[2020-09-02 13:09] LABS: ALANINE AMINOTRANSFERASE 32 U/L (12-78); ALBUMIN 3.9 G/DL (3.4-5.0); ALBUMIN/GLOBULIN RATIO 1.2 (1.1-1.5); ALKALINE PHOSPHATASE 50 IU/L (46-116); ANION GAP 6 (8-16); ASPARTATE AMINO TRANSFERASE 26 U/L (10-37); BILIRUBIN,TOTAL 0.4 MG/DL (0.1-1.0); BLOOD UREA NITROGEN 16 MG/DL (7-18); BUN/CREATININE RATIO 21.3 (6.6-38.0); CALCIUM 9.3 MG/DL (8.5-10.1); CHLORIDE 107 MMOL/L (99-107); CREATININE 0.75 MG/DL (0.40-0.90); GLUCOSE 85 MG/DL (70-104); SODIUM 141 MMOL/L (135-145); TOTAL CARBON DIOXIDE 28.2 MMOL/L (24-32); TOTAL PROTEIN 7.1 G/DL (6.4-8.2); eGFR 77 ML/MIN
[2020-09-02 13:11] LABS: POTASSIUM 4.5 MMOL/L (3.5-5.1)
[2020-09-02 15:58] VITALS: BP 98/56
== END 2020-09-02 16:00 | disposition home or self-care (01) ==
LOC: ER 11:56
DX: I25.118 Atherosclerotic heart disease of native coronary artery with other forms of angina pectoris (principal); R07.89 Other chest pain; I21.9 Acute myocardial infarction, unspecified; J44.9 Chronic obstructive pulmonary disease, unspecified; Z79.82 Long term (current) use of aspirin; Z79.899 Other long term (current) drug therapy
CPT/HCPCS: 36415; 71045; 80053; 83880; 84484; 85025; 93005; 99285

== ENCOUNTER 2020-10-10 09:40 | Day surgery (SDC) | payer MEDICARE, OTHER ==
[~2020-10-10] VITALS: Ht 149.9 cm; Wt 60.1 kg
[2020-10-10] VITALS (8 sets, daily range): BP systolic 90–126; BP diastolic 45–65
[~2020-10-10 09:40] MED LIST changes: +AMIO200T67 PO; +CLOP75TA34 PO; -CLOP75TA35 PO
[2020-10-10] MEDS ORDERED: CAPT12.53 PO (10:15)
[2020-10-10] MEDS ORDERED: ALB0.5UD IH (10:15)
[2020-10-10] MEDS ORDERED: MULT-1085 PO (10:15)
[2020-10-10] MEDS ORDERED: AMIO200T62 PO (10:15)
[2020-10-10] MEDS ORDERED: DOCU-21 PO (10:15)
[2020-10-10] MEDS ORDERED: ceFAZolin 2gm in dextrose, iso 50 ML IV ONE (10:17)
[2020-10-10] MEDS ORDERED: VANCOMYCIN INJ 1000 MG in NORMAL SALINE 250ml IV.SOLN IV ONE (10:18)
[2020-10-10] MEDS ORDERED: normal saline 1000ml 1,000 ML IV SCH (10:20)
[2020-10-10] MEDS ORDERED: midazolam 2 mg/2 ml injection ONE ×3 (10:29→11:07)
[2020-10-10] MEDS ORDERED: vancomycin 1,000mg inj ONE (10:30)
[2020-10-10] MEDS ORDERED: LIDOcaine 1% W/epiNEPHrine 1:100,000 20ml vial ONE (10:30)
[2020-10-10] MEDS ORDERED: fentaNYL/PF 50MCG/1 ML 2ML syringe ONE ×2 (10:30→11:07)
[2020-10-10 10:52] LABS: BASOPHILS # (AUTO) 0.1 X10'3 (0-0.2); BASOPHILS % (AUTO) 1.2 % (0-1); EOSINOPHILS # (AUTO) 0.5 X10'3 (0-0.9); EOSINOPHILS % (AUTO) 6.2 % (0-6); HEMATOCRIT 40.5 % (35.0-45.0); HEMOGLOBIN 13.7 g/dl (12.0-16.0); LYMPHOCYTES # (AUTO) 2.2 X10'3 (1.1-4.8); LYMPHOCYTES % (AUTO) 29.8 % (21-51); MEAN CORPUSCULAR HEMOGLOBIN 31.2 PG (27.0-31.0); MEAN CORPUSCULAR HGB CONC 33.9 g/dL (33.0-36.5); MEAN CORPUSCULAR VOLUME 92.1 FL (78-98); MEAN PLATELET VOLUME 8.3 FL (7.4-10.4); MONOCYTES # (AUTO) 0.5 X10'3 (0-0.9); MONOCYTES % (AUTO) 6.5 % (2-12); NEUTROPHILS # (AUTO) 4.2 X10'3 (1.8-7.7); NEUTROPHILS % (AUTO) 56.3 % (42-75); PLATELET COUNT 287 X10'3 (140-440); RED CELL DISTRIBUTION WIDTH 13.2 % (11.5-14.5); WHITE BLOOD COUNT 7.4 X10'3 (4.5-11.0)
[2020-10-10 11:11] LABS: ALBUMIN 3.7 G/DL (3.4-5.0); ANION GAP 7 (8-16); BLOOD UREA NITROGEN 18 MG/DL (7-18); CALCIUM 8.9 MG/DL (8.5-10.1); CHLORIDE 108 MMOL/L (99-107); CREATININE 0.82 MG/DL (0.40-0.90); GLUCOSE 95 MG/DL (70-104); MAGNESIUM 1.8 MG/DL (1.5-2.4); POTASSIUM 4.4 MMOL/L (3.5-5.1); SODIUM 142 MMOL/L (135-145); TOTAL CARBON DIOXIDE 26.9 MMOL/L (24-32); eGFR 69 ML/MIN
[2020-10-10] MEDS ORDERED: HYDROcodone/acetaminophen 10/325mg tab PO PRN (12:15)
[2020-10-10] MEDS ORDERED: normal saline 1000ml 1,000 ML IV ONE (12:15)
[2020-10-10] MEDS ORDERED: HYDROcodone/acetaminophen 5mg/325mg tablet PO PRN (12:15)
== END 2020-10-10 14:10 | disposition home or self-care (01) ==
LOC: SSTAY O 09:40
PROVIDERS: ATTEND Internal Medicine Cardiovascular Disease
DX: I25.5 Ischemic cardiomyopathy (principal); I42.0 Dilated cardiomyopathy; I47.2 Ventricular tachycardia; I10 Essential (primary) hypertension; I25.2 Old myocardial infarction; I25.10 Atherosclerotic heart disease of native coronary artery without angina pectoris; E78.00 Pure hypercholesterolemia, unspecified; K21.9 Gastro-esophageal reflux disease without esophagitis; Z95.5 Presence of coronary angioplasty implant and graft; Z98.890 Other specified postprocedural states; Z79.899 Other long term (current) drug therapy; Z79.01 Long term (current) use of anticoagulants; Z87.891 Personal history of nicotine dependence; Z82.3 Family history of stroke; Z82.49 Family history of ischemic heart disease and other diseases of the circulatory system
CPT/HCPCS: 33249; 36415; 71045; 80048; 83735; 85025; 85610; 93005; 99152; 99153; C1722; C1777; C1894; J2250; J3010; J3370; J7030; A4565; A4620; A6258

== ENCOUNTER 2021-01-05 00:11 | Observation (INO) | payer MEDICARE, OTHER ==
[~2021-01-05] VITALS: Ht 149.9 cm; Wt 60.5 kg
[~2021-01-05 00:11] MED LIST changes: +ALB0.5UD IH; +AMIO200T62 PO; -AMIO200T67 PO; +CAPT12.53 PO; +DOCU-21 PO; -LISI2.5T2 PO; +LOP25T PO; -METO25TA6 PO; +MULT-1085 PO
[2021-01-05 00:29] LABS: BASOPHILS # (AUTO) 0.1 X10'3 (0-0.2); BASOPHILS % (AUTO) 1.3 % (0-1); EOSINOPHILS # (AUTO) 0.5 X10'3 (0-0.9); HEMOGLOBIN 13.7 g/dl (12.0-16.0)
[2021-01-05 00:34] LABS: EOSINOPHILS % (AUTO) 4.9 % (0-6); HEMATOCRIT 40.4 % (35.0-45.0); LYMPHOCYTES % (AUTO) 29.4 % (21-51); MEAN CORPUSCULAR HGB CONC 33.9 g/dL (33.0-36.5); MEAN CORPUSCULAR VOLUME 91.3 FL (78-98); MEAN PLATELET VOLUME 7.9 FL (7.4-10.4); MONOCYTES # (AUTO) 0.8 X10'3 (0-0.9); MONOCYTES % (AUTO) 7.5 % (2-12); NEUTROPHILS # (AUTO) 5.7 X10'3 (1.8-7.7); NEUTROPHILS % (AUTO) 56.9 % (42-75); PLATELET COUNT 334 X10'3 (140-440); RED BLOOD COUNT 4.42 X10'6 (4.20-5.60); RED CELL DISTRIBUTION WIDTH 13.7 % (11.5-14.5); WHITE BLOOD COUNT 10.1 X10'3 (4.5-11.0)
[2021-01-05 00:46] LABS: ALANINE AMINOTRANSFERASE 22 U/L (12-78); ALBUMIN 3.5 G/DL (3.4-5.0); ALBUMIN/GLOBULIN RATIO 0.9 (1.1-1.5); ALKALINE PHOSPHATASE 57 IU/L (46-116); ANION GAP 13 (8-16); ASPARTATE AMINO TRANSFERASE 7 U/L (10-37); BILIRUBIN,TOTAL 0.4 MG/DL (0.1-1.0); BLOOD UREA NITROGEN 20 MG/DL (7-18); BUN/CREATININE RATIO 21.3 (6.6-38.0); CALCIUM 8.9 MG/DL (8.5-10.1); CHLORIDE 105 MMOL/L (99-107); CREATININE 0.94 MG/DL (0.40-0.90); GLUCOSE 146 MG/DL (70-104); POTASSIUM 3.8 MMOL/L (3.5-5.1); SODIUM 142 MMOL/L (135-145); TOTAL CARBON DIOXIDE 24.4 MMOL/L (24-32); TOTAL PROTEIN 7.2 G/DL (6.4-8.2); eGFR 59 ML/MIN
--- NOTE | 2021-01-05 01:06 | NUR ---
Pacemaker/AICD interigated
--- NOTE | 2021-01-05 01:17 | NUR ---
[employer] Tech, Brianna, calling and fax just received. She reports that she saw the Patient today at Dr. Thompson office and it was noted that a lead had been pulled back. She states she will be in to turn off the device. Should be here in aprox 15 minutes.
[2021-01-05 01:21] LABS: MAGNESIUM 1.8 MG/DL (1.5-2.4)
--- NOTE | 2021-01-05 01:54 | NUR ---
Tourlandish TechBrianna, at bedside and talking with Dr. Hilton. she reports she has turned off the device. reports pt to be admitted.
[2021-01-05] MEDS ORDERED: ondansetron/PF 4mg/2ml inj IV PRN (02:30)
[2021-01-05] MEDS ORDERED: magnesium hydroxide 30ml (MOM) UD suspension PO PRN (02:30)
[2021-01-05] MEDS ORDERED: morphine 2 MG/ML inj. syringe IV PRN ×2 (02:30)
[2021-01-05] MEDS ORDERED: acetaminophen 325mg tablet PO PRN ×2 (02:30)
[2021-01-05] MEDS ORDERED: HYDROcodone/acetaminophen 5mg/325mg tablet PO PRN (02:30)
[2021-01-05] MEDS ORDERED: mag hydrox/Alum hydrox/simeth 30ml oral suspension PO PRN (02:30)
--- NOTE | 2021-01-05 04:48 | NUR ---
3 hr trop negative. new due at 0620. pt given adtl blankets. hr 59, otherwise vss. Pt reports intermittent episodes of a "twitching " feeling in her heart "like electricity".
[2021-01-05] MEDS ORDERED: albuterol 2.5 MG/3 ML nebule NEB PRN (08:35)
[2021-01-05] MEDS ORDERED: metoprolol tartrate 12.5mg (1/2 tablet) PO SCH (08:52)
--- NOTE | 2021-01-05 09:30 | NUR ---
CALLED DR WELLS TO CLARIFY ORDER FOR LOPRESSOR 0.5MG AND PLAVIX 75MG NOW. STATED OK TO GIVE PLAVIX AND WONT AFFECT PACEMAKER SURGERY FOR TOMORROW. CHANGED LOPRESSOR TO NORMAL DOSE OF 12.5MG.
[2021-01-05] MEDS: clopidogrel 75mg tablet PO SCH (09:38)
[2021-01-05] MEDS ORDERED: metoprolol tartrate 50mg tablet PO ONE (09:40)
[2021-01-05 10:12] LABS: CLARITY,URINE CLEAR (Clear); COLOR,URINE YELLOW (Yellow); GLUCOSE, URINE NEGATIVE (Neg); KETONES,URINE NEGATIVE (Neg); LEUKOCYTE ESTERASE ,URINE NEGATIVE (Neg); NITRITES, URINE NEGATIVE (Neg); OCCULT BLOOD,URINE NEGATIVE (Neg); PH,URINE 5.5 (4.8-8.0); PROTEIN,URINE NEGATIVE (Neg); UROBILINOGEN,URINE 0.2 E.U/dL (0.2-1.0)
[2021-01-05 10:13] LABS: UA COLLECTION TYPE CLN CATCH MIDSTREAM
[2021-01-05] MEDS: ranolazine 500mg SR tablet (Q12H) PO SCH ×2 (10:27→19:35)
[2021-01-05] MEDS: metoprolol tartrate 12.5mg (1/2 tablet) PO SCH ×2 (10:27→19:34)
[2021-01-05 19:00] VITALS: BP 114/62
[2021-01-05 22:00] VITALS: BP 122/75
[2021-01-06 02:00] VITALS: BP 99/53
--- NOTE | 2021-01-06 06:14 | NUR ---
Problems reprioritized. Patient report given, questions answered & plan of care reviewed with Lisa Simpson RN.
--- NOTE | 2021-01-06 06:27 | NUR ---
Patient in room PCU 3014. I have received report from Dayana KINNEY and had the opportunity to ask questions and assume patient care.
[2021-01-06 07:00] VITALS: BP 123/75
[2021-01-06] MEDS: multivitamins, therapeutics tablet PO SCH (07:37)
[2021-01-06] MEDS: docusate sod 100mg capsule PO SCH (07:37)
[2021-01-06] MEDS: pantoprazole 40mg Tablet.DR PO SCH (07:37)
[2021-01-06] MEDS: amiodarone 200mg tablet PO SCH (07:37)
[2021-01-06] MEDS: ranolazine 500mg SR tablet (Q12H) PO SCH ×3 (07:38→22:36)
[2021-01-06] MEDS: metoprolol tartrate 12.5mg (1/2 tablet) PO SCH ×2 (07:38→22:36)
[2021-01-06 07:41] LABS: BASOPHILS # (AUTO) 0.1 X10'3 (0-0.2); BASOPHILS % (AUTO) 0.9 % (0-1); EOSINOPHILS # (AUTO) 0.4 X10'3 (0-0.9); EOSINOPHILS % (AUTO) 4.5 % (0-6); HEMOGLOBIN 14.1 g/dl (12.0-16.0); LYMPHOCYTES # (AUTO) 1.8 X10'3 (1.1-4.8); LYMPHOCYTES % (AUTO) 18.4 % (21-51); MEAN CORPUSCULAR HEMOGLOBIN 30.7 PG (27.0-31.0); MEAN CORPUSCULAR HGB CONC 33.6 g/dL (33.0-36.5); MEAN CORPUSCULAR VOLUME 91.2 FL (78-98); MEAN PLATELET VOLUME 7.9 FL (7.4-10.4); MONOCYTES # (AUTO) 0.6 X10'3 (0-0.9); MONOCYTES % (AUTO) 6.6 % (2-12); NEUTROPHILS # (AUTO) 6.8 X10'3 (1.8-7.7); NEUTROPHILS % (AUTO) 69.6 % (42-75); PLATELET COUNT 338 X10'3 (140-440); RED CELL DISTRIBUTION WIDTH 13.8 % (11.5-14.5); WHITE BLOOD COUNT 9.8 X10'3 (4.5-11.0)
[2021-01-06 07:54] LABS: ALBUMIN 3.3 G/DL (3.4-5.0); ANION GAP 10 (8-16); BLOOD UREA NITROGEN 22 MG/DL (7-18); BUN/CREATININE RATIO 22.9 (6.6-38.0); CALCIUM 9.1 MG/DL (8.5-10.1); CHLORIDE 104 MMOL/L (99-107); CREATININE 0.96 MG/DL (0.40-0.90); GLUCOSE 94 MG/DL (70-104); POTASSIUM 4.5 MMOL/L (3.5-5.1); SODIUM 140 MMOL/L (135-145); TOTAL CARBON DIOXIDE 26.1 MMOL/L (24-32); eGFR 58 ML/MIN
[2021-01-06] MEDS: clopidogrel 75mg tablet PO SCH (08:00)
[2021-01-06] MEDS: aspirin 81mg tablet.DR PO SCH (08:00)
--- NOTE | 2021-01-06 09:37 | NUR ---
Dr. Dawson at bedside with patient and nurse. After examining the patient, MD is ok to discharge if Pt feels good enough after procedure. Contact MD when patient is recovered for further instructions. Will continue to monitor.
[2021-01-06 11:00] VITALS: BP 105/62
--- NOTE | 2021-01-06 11:01 | NUR ---
Telephone order from Dr. Aldana 1gm of [facility] STAT.
[2021-01-06] MEDS ORDERED: vancomycin/NS 1 GM ADD-VANTAGE 250 ML IV STA (11:02)
--- NOTE | 2021-01-06 11:40 | NUR ---
Demand Manager called to verify pt, Golden was just hung. microbiology lab assistant aware.
[2021-01-06] MEDS ORDERED: midazolam 1 mg/ML 2ml injection ONE ×3 (11:49→12:58)
[2021-01-06] MEDS ORDERED: fentaNYL/PF 50MCG/1 ML 2ML syringe ONE (11:49)
[2021-01-06] MEDS ORDERED: LIDOcaine 1% W/epiNEPHrine 1:100,000 20ml vial ONE (11:50)
[2021-01-06] MEDS ORDERED: vancomycin 1,000mg inj ONE (11:50)
[2021-01-06] MEDS ORDERED: ceFAZolin 2gm in dextrose, iso 50 ML IV ONE (12:28)
[2021-01-06] MEDS ORDERED: proCHLORperazine 10 MG/2 ml inj ONE (12:45)
--- NOTE | 2021-01-06 13:23 | NUR ---
Patient in room PCU 3014. I have received report from Marie KINNEY from solar lab technician and had the opportunity to ask questions and assume patient care. Pt on the way back to room
[2021-01-06 15:00] VITALS: BP 101/53
[2021-01-06] MEDS ORDERED: ondansetron 4mg rapidly disintigrating tab PO PRN (15:50)
[2021-01-06 18:00] VITALS: BP 97/61
--- NOTE | 2021-01-06 18:17 | NUR ---
Problems reprioritized. Patient report given, questions answered & plan of care reviewed with Beverly KINNEY.
--- NOTE | 2021-01-06 18:19 | NUR ---
Patient in room PCU 3014. I have received report from Lisa KINNEY and had the opportunity to ask questions and assume patient care.
[2021-01-06 22:00] VITALS: BP 108/47
[2021-01-07 02:00] VITALS: BP 103/47
--- NOTE | 2021-01-07 06:34 | NUR ---
Patient in room PCU 3014. I have received report from Beverly KINNEY and had the opportunity to ask questions and assume patient care.
--- NOTE | 2021-01-07 06:35 | NUR ---
Problems reprioritized. Patient report given, questions answered & plan of care reviewed with Lisa KINNEY.
[2021-01-07 08:06] LABS: BASOPHILS # (AUTO) 0.1 X10'3 (0-0.2); BASOPHILS % (AUTO) 0.7 % (0-1); EOSINOPHILS # (AUTO) 0.4 X10'3 (0-0.9); EOSINOPHILS % (AUTO) 3.4 % (0-6); HEMATOCRIT 44.8 % (35.0-45.0); HEMOGLOBIN 14.7 g/dl (12.0-16.0); LYMPHOCYTES # (AUTO) 1.5 X10'3 (1.1-4.8); LYMPHOCYTES % (AUTO) 13.3 % (21-51); MEAN CORPUSCULAR HEMOGLOBIN 30.2 PG (27.0-31.0); MEAN CORPUSCULAR HGB CONC 32.8 g/dL (33.0-36.5); MEAN CORPUSCULAR VOLUME 92.2 FL (78-98); MEAN PLATELET VOLUME 8.1 FL (7.4-10.4); MONOCYTES # (AUTO) 0.9 X10'3 (0-0.9); MONOCYTES % (AUTO) 7.9 % (2-12); NEUTROPHILS # (AUTO) 8.4 X10'3 (1.8-7.7); NEUTROPHILS % (AUTO) 74.7 % (42-75); PLATELET COUNT 344 X10'3 (140-440); RED BLOOD COUNT 4.86 X10'6 (4.20-5.60); WHITE BLOOD COUNT 11.3 X10'3 (4.5-11.0)
[2021-01-07 08:16] LABS: ALBUMIN 3.3 G/DL (3.4-5.0); ANION GAP 11 (8-16); BLOOD UREA NITROGEN 23 MG/DL (7-18); BUN/CREATININE RATIO 31.9 (6.6-38.0); CALCIUM 9.1 MG/DL (8.5-10.1); CHLORIDE 104 MMOL/L (99-107); CREATININE 0.72 MG/DL (0.40-0.90); GLUCOSE 91 MG/DL (70-104); POTASSIUM 4.3 MMOL/L (3.5-5.1); SODIUM 140 MMOL/L (135-145); TOTAL CARBON DIOXIDE 25.1 MMOL/L (24-32); eGFR 80 ML/MIN
[2021-01-07] MEDS: aspirin 81mg tablet.DR PO SCH (09:04)
[2021-01-07] MEDS: ranolazine 500mg SR tablet (Q12H) PO SCH (09:04)
[2021-01-07] MEDS: pantoprazole 40mg Tablet.DR PO SCH (09:05)
[2021-01-07] MEDS: docusate sod 100mg capsule PO SCH (09:05)
[2021-01-07] MEDS: metoprolol tartrate 12.5mg (1/2 tablet) PO SCH (09:05)
[2021-01-07] MEDS: multivitamins, therapeutics tablet PO SCH (09:05)
[2021-01-07] MEDS: amiodarone 200mg tablet PO SCH (09:05)
[2021-01-07] MEDS: clopidogrel 75mg tablet PO SCH (09:06)
--- NOTE | 2021-01-07 10:02 | NUR ---
Dr. Dawson at bedside with patient and nurse. Discharge today
--- NOTE | 2021-01-07 11:37 | NUR ---
Patient discharged per MD orders. VSS, patient was educated on discharge instructions and will follow up with PCP and Dr. Aldana. All paperwork were collected and charted. PIV was removed and tele box removed and returned. Patient was able to self dress and was escorted via wheelchair by nurse to [facility]. was waiting for pt in the front hospital.
== END 2021-01-07 11:30 | disposition home or self-care (01) ==
LOC: ER 00:12 → ED HOLD 02:26 → PCU 3S 18:00
PROVIDERS: ADMIT Internal Medicine; ATTEND Internal Medicine
DX: T82.120A Displacement of cardiac electrode, initial encounter (principal); T82.118A Breakdown (mechanical) of other cardiac electronic device, initial encounter; I25.5 Ischemic cardiomyopathy; I11.0 Hypertensive heart disease with heart failure; I50.9 Heart failure, unspecified; I25.10 Atherosclerotic heart disease of native coronary artery without angina pectoris; I48.0 Paroxysmal atrial fibrillation; I25.2 Old myocardial infarction; J44.9 Chronic obstructive pulmonary disease, unspecified; F12.90 Cannabis use, unspecified, uncomplicated; Z87.891 Personal history of nicotine dependence; Z95.0 Presence of cardiac pacemaker; Z98.61 Coronary angioplasty status; Z79.02 Long term (current) use of antithrombotics/antiplatelets; Z79.01 Long term (current) use of anticoagulants; Z79.899 Other long term (current) drug therapy; Y71.2 Prosthetic and other implants, materials and accessory cardiovascular devices associated with adverse incidents
CPT/HCPCS: 33215; 36415; 71045; 80048; 80053; 81003; 83735; 83880; 84484; 85025; 87081; 93005; 94760; 96365; 96366; 99285; G0378; J0780; J2250; J3010; J3370; 99152; 99153; A4565; A4620; A6258

== ENCOUNTER 2021-04-02 18:40 | Emergency (ER) | payer MEDICARE, OTHER ==
[~2021-04-02] VITALS: Ht 149.9 cm; Wt 64.1 kg
[~2021-04-02 18:40] MED LIST changes: +ATOR20TA66 PO; -ATOR80TA PO; -CAPT12.53 PO; -EZET10TA48 PO; +FLUT1BLS4 PO
--- NOTE | 2021-04-02 21:05 | NUR ---
PT TO CT
[2021-04-02 21:16] LABS: BASOPHILS # (AUTO) 0.1 X10'3 (0-0.2); BASOPHILS % (AUTO) 1.3 % (0-1); EOSINOPHILS # (AUTO) 0.4 X10'3 (0-0.9); EOSINOPHILS % (AUTO) 4.3 % (0-6); HEMATOCRIT 45.2 % (35.0-45.0); HEMOGLOBIN 15.6 g/dl (12.0-16.0); LYMPHOCYTES # (AUTO) 2.5 X10'3 (1.1-4.8); LYMPHOCYTES % (AUTO) 24.1 % (21-51); MEAN CORPUSCULAR HEMOGLOBIN 31.9 PG (27.0-31.0); MEAN CORPUSCULAR HGB CONC 34.5 g/dL (33.0-36.5); MEAN CORPUSCULAR VOLUME 92.4 FL (78-98); MEAN PLATELET VOLUME 8.3 FL (7.4-10.4); MONOCYTES # (AUTO) 0.7 X10'3 (0-0.9); MONOCYTES % (AUTO) 6.4 % (2-12); NEUTROPHILS # (AUTO) 6.7 X10'3 (1.8-7.7); NEUTROPHILS % (AUTO) 63.9 % (42-75); PLATELET COUNT 264 X10'3 (140-440); RED BLOOD COUNT 4.89 X10'6 (4.20-5.60); WHITE BLOOD COUNT 10.5 X10'3 (4.5-11.0)
[2021-04-02 21:26] LABS: ALANINE AMINOTRANSFERASE 39 U/L (12-78); ALBUMIN 3.9 G/DL (3.4-5.0); ALBUMIN/GLOBULIN RATIO 1.1 (1.1-1.5); ALKALINE PHOSPHATASE 49 IU/L (46-116); ANION GAP 10 (8-16); ASPARTATE AMINO TRANSFERASE 25 U/L (10-37); BILIRUBIN,TOTAL 0.5 MG/DL (0.1-1.0); BLOOD UREA NITROGEN 17 MG/DL (7-18); BUN/CREATININE RATIO 24.6 (6.6-38.0); CALCIUM 8.9 MG/DL (8.5-10.1); CHLORIDE 104 MMOL/L (99-107); CREATININE 0.69 MG/DL (0.40-0.90); GLUCOSE 84 MG/DL (70-104); POTASSIUM 4.1 MMOL/L (3.5-5.1); SODIUM 138 MMOL/L (135-145); TOTAL CARBON DIOXIDE 23.9 MMOL/L (24-32); TOTAL PROTEIN 7.3 G/DL (6.4-8.2); eGFR 84 ML/MIN
--- NOTE | 2021-04-02 22:03 | NUR ---
PT'S DAUGHTER NIVIA CALLED, PHONE NUMBER IS [phone]
[2021-04-02 22:31] VITALS: BP 120/69
--- NOTE | 2021-04-02 22:34 | NUR ---
HAMZAH SILVERMAN ADVISED THAT PT DOES NOT NEED PACEMAKER INTERROGATED AT THIS TIME. HE ADVISES THAT PT HAVE IT DONE TOMORROW THROUGH PCM.
== END 2021-04-02 22:34 | disposition home or self-care (01) ==
LOC: ER 18:41
DX: R51.9 Headache, unspecified (principal); R20.0 Anesthesia of skin; R53.83 Other fatigue; I25.10 Atherosclerotic heart disease of native coronary artery without angina pectoris; I25.2 Old myocardial infarction; J44.9 Chronic obstructive pulmonary disease, unspecified; Z87.01 Personal history of pneumonia (recurrent); Z95.1 Presence of aortocoronary bypass graft; Z79.82 Long term (current) use of aspirin; Z79.899 Other long term (current) drug therapy
CPT/HCPCS: 36415; 70450; 80053; 85025; 99284

== ENCOUNTER 2021-09-25 11:08 | Emergency (ER) | payer MEDICARE, OTHER ==
[~2021-09-25] VITALS: Ht 149.9 cm; Wt 61.4 kg
[2021-09-25 12:02] LABS: BASOPHILS # (AUTO) 0.1 X10'3 (0-0.2); BASOPHILS % (AUTO) 1.2 % (0-1); EOSINOPHILS # (AUTO) 0.3 X10'3 (0-0.9); EOSINOPHILS % (AUTO) 3.8 % (0-6); HEMATOCRIT 45.2 % (35.0-45.0); HEMOGLOBIN 15.1 g/dl (12.0-16.0); LYMPHOCYTES # (AUTO) 1.7 X10'3 (1.1-4.8); LYMPHOCYTES % (AUTO) 24.3 % (21-51); MEAN CORPUSCULAR HEMOGLOBIN 30.8 PG (27.0-31.0); MEAN CORPUSCULAR HGB CONC 33.5 g/dL (33.0-36.5); MEAN CORPUSCULAR VOLUME 91.8 FL (78-98); MEAN PLATELET VOLUME 7.6 FL (7.4-10.4); MONOCYTES # (AUTO) 0.6 X10'3 (0-0.9); NEUTROPHILS # (AUTO) 4.3 X10'3 (1.8-7.7); NEUTROPHILS % (AUTO) 61.7 % (42-75); PLATELET COUNT 255 X10'3 (140-440); RED BLOOD COUNT 4.92 X10'6 (4.20-5.60); RED CELL DISTRIBUTION WIDTH 13.4 % (11.5-14.5); WHITE BLOOD COUNT 6.9 X10'3 (4.5-11.0)
[2021-09-25 12:16] LABS: ALANINE AMINOTRANSFERASE 41 U/L (12-78); ALBUMIN 3.9 G/DL (3.4-5.0); ALKALINE PHOSPHATASE 44 IU/L (46-116); ANION GAP 13 (8-16); ASPARTATE AMINO TRANSFERASE 37 U/L (10-37); BILIRUBIN,TOTAL 0.4 MG/DL (0.1-1.0); BLOOD UREA NITROGEN 16 MG/DL (7-18); BUN/CREATININE RATIO 21.6 (6.6-38.0); CALCIUM 9.1 MG/DL (8.5-10.1); CHLORIDE 102 MMOL/L (99-107); CREATININE 0.74 MG/DL (0.40-0.90); GLUCOSE 101 MG/DL (70-104); POTASSIUM 4.3 MMOL/L (3.5-5.1); SODIUM 138 MMOL/L (135-145); TOTAL CARBON DIOXIDE 23.4 MMOL/L (24-32); TOTAL PROTEIN 7.8 G/DL (6.4-8.2); eGFR 78 ML/MIN
[2021-09-25 12:25] LABS: ETHANOL < 0.010 GM/DL (0.0-0.010)
[2021-09-25 16:59] LABS: URINE AMPHETAMINE SCREEN NEGATIVE (Neg); URINE BARBITUATE SCREEN NEGATIVE (Neg); URINE BENZODIAZEPINES SCREEN NEGATIVE (Neg); URINE CANNABINOID SCREEN POSITIVE (Neg); URINE COCAINE SCREEN NEGATIVE (Neg); URINE METHADONE SCREEN NEGATIVE (Neg); URINE OPIATE SCREEN NEGATIVE (Neg); URINE PHENCYCLIDINE SCREEN NEGATIVE (Neg)
[2021-09-25 17:01] LABS: CLARITY,URINE SLIGHTLY CLOUDY (Clear); COLOR,URINE YELLOW (Yellow); GLUCOSE, URINE NEGATIVE (Neg); KETONES,URINE 15 mg/dl (Neg); LEUKOCYTE ESTERASE ,URINE NEGATIVE (Neg); NITRITES, URINE NEGATIVE (Neg); OCCULT BLOOD,URINE NEGATIVE (Neg); PROTEIN,URINE NEGATIVE (Neg); UROBILINOGEN,URINE 0.2 E.U/dL (0.2-1.0)
[2021-09-25 17:02] LABS: UA COLLECTION TYPE VOIDED
[2021-09-25] MEDS ORDERED: ROSU20TA2 PO (17:10)
[2021-09-25] MEDS ORDERED: ROSU20TA31 PO (17:10)
[2021-09-25 17:11] LABS: MUCUS STRANDS MANY /LPF (Neg); SQUAMOUS EPITHELIAL CELL,UR MANY /LPF (FEW)
[2021-09-25 17:12] LABS: HYALINE CASTS 0-3 /LPF (NEGATIVE)
[2021-09-25 17:13] LABS: COARSE GRANULAR CAST 0-3 /LPF (NEGATIVE); WBC,URINE 0-4 /HPF (0-4)
[2021-09-25 17:14] LABS: BACTERIA,URINE FEW /HPF (Neg); RBC,URINE 0-2 /HPF (0-2)
[2021-09-25] MEDS ORDERED: AMIO200T39 PO (17:16)
[2021-09-25] MEDS ORDERED: METO25TA6 PO (17:16)
[2021-09-25] MEDS ORDERED: EZET10TA48 PO (17:16)
--- NOTE | 2021-09-25 17:18 | NUR ---
Received from main ER to ER OF at 1650.
[2021-09-25] MEDS ORDERED: nitroGLYCERIN 0.4mg SUBLingual tab SL PRN (17:45)
[2021-09-25] MEDS ORDERED: albuterol 2.5 MG/3 ML nebule NEB PRN (17:45)
--- NOTE | 2021-09-25 17:57 | NUR ---
PACKET FAXED TO [facility]
--- NOTE | 2021-09-25 18:30 | NUR ---
PT WAS MOVED TO BED 16. ASSUMED CARE OF PT.
--- NOTE | 2021-09-25 19:30 | NUR ---
PT HAS BEEN PROVIDED WITH A COUPLE BLANKETS AND A REQUESTED TISSUE BOX. LIGHTS WERE DIMMED SO PT CAN TRY TO SLEEP.
[2021-09-25] MEDS: metoprolol tartrate 12.5mg (1/2 tablet) PO SCH (20:22)
--- NOTE | 2021-09-25 20:30 | NUR ---
PT TOOK HER PO MEDS COMPLIANTLY. PT WILL TRY TO SLEEP AGAIN.
[2021-09-25] MEDS: ranolazine 500mg SR tablet (Q12H) PO SCH (20:41)
[2021-09-25] MEDS ORDERED: atorvastatin 20mg tablet PO SCH (21:00)
--- NOTE | 2021-09-25 21:30 | NUR ---
PT SHIFTED ONTO HER RIGHT SIDE. PT COMFORTABLY SLEEPING. EQUAL RISE AND FALL OF CHEST.
--- NOTE | 2021-09-25 22:30 | NUR ---
pt continues to sleep comfortably. equal rise and fall of chest
--- NOTE | 2021-09-25 23:30 | NUR ---
pt shifted on her side and continues to sleep. equal rise and fall of chest
--- NOTE | 2021-09-26 00:30 | NUR ---
PT SLEEPING. EQUAL RISE AND FALL OF CHEST.
--- NOTE | 2021-09-26 01:30 | NUR ---
PT AWAKE AND CALMLY LOOKING AT THE CEILING WHILE LYING DOWN ON HER GURNEY.
--- NOTE | 2021-09-26 02:30 | NUR ---
PT IS SLEEPING ON HER SIDE. EQUAL RISE AND FALL OF CHEST.
--- NOTE | 2021-09-26 03:30 | NUR ---
SLEEPING COMFORTABLY. EQUAL RISE AND FALL OF CHEST.
--- NOTE | 2021-09-26 04:30 | NUR ---
PT SHIFTED ONTO HER OTHER SIDE AND CONTINUES TO SLEEP COMFORTABLY. EQUAL RISE AND FALL OF CHEST.
--- NOTE | 2021-09-26 05:34 | NUR ---
PT IS SLEEPING. EQUAL RISE AND FALL OF CHEST.
--- NOTE | 2021-09-26 05:57 | NUR ---
pt awake. calmly lying on her gurney.
--- NOTE | 2021-09-26 06:20 | NUR ---
Walked pt to Overflow Bed 23 from ER Bed 16.
[2021-09-26 06:29] VITALS: BP_DIAS 62
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
[2021-09-26] MEDS ORDERED: amiodarone 200mg tablet PO SCH (08:00)
[2021-09-26] MEDS ORDERED: clopidogrel 75mg tablet PO SCH (08:00)
[2021-09-26] MEDS ORDERED: multivitamins, therapeutics tablet PO SCH (08:00)
[2021-09-26] MEDS ORDERED: ezetimibe 10mg tablet PO SCH (08:00)
[2021-09-26] MEDS ORDERED: docusate sod 100mg capsule PO SCH (08:00)
[2021-09-26] MEDS ORDERED: UMECLIDIN PO SCH (08:00)
[2021-09-26] MEDS ORDERED: VILANTER PO SCH (08:00)
[2021-09-26] MEDS ORDERED: pantoprazole 40mg Tablet.DR PO SCH (08:00)
[2021-09-26] MEDS ORDERED: FLUTICASONE PO SCH (08:00)
[2021-09-26] MEDS ORDERED: aspirin 81mg, enteric-coated 1 TAB TABLET.DR PO SCH (08:00)
[2021-09-26] MEDS ORDERED: atorvastatin 20mg tablet PO SCH (08:00)
[2021-09-26 08:07] VITALS: BP_SYST 119
[2021-09-26] MEDS: ranolazine 500mg SR tablet (Q12H) PO SCH (08:07)
[2021-09-26] MEDS: metoprolol tartrate 12.5mg (1/2 tablet) PO SCH (08:07)
--- NOTE | 2021-09-26 09:00 | NUR ---
Pt cooperative with assessment by [facility] and now is talking on telephone to family. Pt remains delusional r/t her neighbor.
== END 2021-09-26 09:57 | disposition home or self-care (01) ==
LOC: ER 11:09
DX: F23 Brief psychotic disorder (principal); Z20.822 Contact with and (suspected) exposure to COVID-19; I25.10 Atherosclerotic heart disease of native coronary artery without angina pectoris; I25.2 Old myocardial infarction; J44.9 Chronic obstructive pulmonary disease, unspecified; Z87.01 Personal history of pneumonia (recurrent); Z95.5 Presence of coronary angioplasty implant and graft; Z79.899 Other long term (current) drug therapy; Z88.8 Allergy status to other drugs, medicaments and biological substances; Z79.82 Long term (current) use of aspirin
CPT/HCPCS: 36415; 70450; 80053; 80305; 80320; 81001; 84443; 85025; 87635; 99284; C9803

== ENCOUNTER 2022-01-12 13:52 | Emergency (ER) | payer MEDICARE ==
[~2022-01-12] VITALS: Ht 149.9 cm; Wt 60.7 kg
[~2022-01-12 13:52] MED LIST changes: +AMIO200T39 PO; -AMIO200T62 PO; -ATOR20TA66 PO; +EZET10TA48 PO; +ROSU20TA31 PO
[2022-01-12 17:04] VITALS: BP 112/61
== END 2022-01-12 17:06 | disposition home or self-care (01) ==
LOC: ER 13:53
DX: M25.532 Pain in left wrist (principal); R07.81 Pleurodynia; R22.32 Localized swelling, mass and lump, left upper limb; I25.10 Atherosclerotic heart disease of native coronary artery without angina pectoris; I25.2 Old myocardial infarction; J44.9 Chronic obstructive pulmonary disease, unspecified; Z87.01 Personal history of pneumonia (recurrent); Z95.5 Presence of coronary angioplasty implant and graft; Z88.8 Allergy status to other drugs, medicaments and biological substances; Z79.82 Long term (current) use of aspirin; Z79.899 Other long term (current) drug therapy
CPT/HCPCS: 29125; 71046; 73110; 99284

== ENCOUNTER 2022-02-06 10:19 | Outpatient (CLI) | payer MEDICARE | END 2022-02-06 23:59 | disposition home or self-care (01) | LOC: RAD 10:19 | PROVIDERS: ATTEND Nurse Practitioner Family | DX: R55 Syncope and collapse (principal) | CPT/HCPCS: 95819 ==

== ENCOUNTER 2024-11-11 14:28 | Emergency (ER) | payer MEDICARE, MEDICAID ==
[~2024-11-11] VITALS: Ht 180.3 cm; Wt 56.5 kg
[~2024-11-11 14:28] MED LIST changes: -ROSU20TA31 PO; +ROSU20TA98 PO
[2024-11-11 14:33] VITALS: BP 143/89; PULSE 59; RESP 18; TEMP 97; O2SAT 98
== END 2024-11-11 16:08 | disposition home or self-care (01) ==
LOC: ER 14:29
DX: M54.2 Cervicalgia (principal); I25.10 Atherosclerotic heart disease of native coronary artery without angina pectoris; I25.2 Old myocardial infarction; J44.9 Chronic obstructive pulmonary disease, unspecified; Z88.8 Allergy status to other drugs, medicaments and biological substances; Z79.82 Long term (current) use of aspirin; Z79.899 Other long term (current) drug therapy; V98.8XXA Other specified transport accidents, initial encounter; Y93.89 Activity, other specified; Y92.89 Other specified places as the place of occurrence of the external cause; Y99.8 Other external cause status
CPT/HCPCS: 99282

== ENCOUNTER 2025-04-23 11:26 | Emergency (ER) | payer MEDICARE, MEDICAID ==
[~2025-04-23] VITALS: Ht 149.9 cm; Wt 51.5 kg
[2025-04-23 11:28] VITALS: BP 127/70; PULSE 69; O2SAT 94
[2025-04-23] MEDS ORDERED: AZIT250T2 PO (11:47)
[2025-04-23] MEDS ORDERED: GUAI237S56 PO (11:47)
--- NOTE | 2025-04-23 11:48 | Physician Documentation ---
History of Present Illness ~ Chief Complaint: Shortness of Breath Stated Complaint: PNEUMONIA Time Seen by MD: 11:35 Primary Medical Doctor: lion Source: patient Mode of Arrival: POV Exam Limitations: no limitations HPI 75-year-old female with history of smoking and COPD was advised to come to the emergency department for chest x-ray after being evaluated by her primary care and prescribed medications for possible pneumonia. Patient denies any fever but has had increased shortness of breath with exertion and coughing. Patient states that she is using her inhalers and is now prescribed amoxicillin. Patient had a recent infection where she was on another antibiotic. Patient denies any chest pain or shortness breast currently. Medication Reconciliation Allergies: Coded Allergies: metronidazole (Verified Allergy, Severe, 11/11/24) Scheduled Amiodarone Hcl (Pacerone), 1 TAB PO DAILY, (Reported) Aspirin (Aspirin EC), 1 TAB PO DAILY, (Reported) Azithromycin (Zithromax), 1 TAB PO UD Clopidogrel Bisulfate (Clopidogrel), 1 TABLET PO DAILY, (Reported) Docusate Sodium (Stool Softener), 1 CAP PO DAILY, (Reported) Ezetimibe (Ezetimibe), 1 TAB PO DAILY, (Reported) Fluticasone/Umeclidin/Vilanter (Trelegy Ellipta 100-62.5-25), 1 PUFFS PO DAILY, (Reported) Guaifenesin/Dextromethorphan (Guaifenesin Dm Syrup), 5 ML PO Q8H Metoprolol Tartrate* (Lopressor tablet*), 0.5 TAB PO BID, (Reported) Multivitamin (Multi Vitamin Daily), 1 TAB PO DAILY, (Reported) Pantoprazole Sodium (PROTONIX tablet), 1 TAB PO DAILY, (Reported) Ranolazine (Ranexa), 1 TAB PO Q12H, (Reported) Rosuvastatin Calcium (Rosuvastatin Calcium), 1 TAB PO HS, (Reported) Scheduled PRN Albuterol Sulfate Nebs* (Proventil Nebs*), 2.5 MG IH Q4H PRN for SOB or wheezing, (Reported) Nitroglycerin (Nitroglycerin), 0.4 MG SL Q5M X 3 DOSES PRN for chest pain, (Reported) Past Medical History Past Medical History: Coronary Artery Disease, Myocardial Infarction, Bronchitis, COPD, Pneumonia Past Surgical History: angioplasty Alcohol Use: None Drug Use: none Lives with: Spouse Lives In: Home Review of Systems All Other Systems at this time: Reviewed and Negative Respiratory: Reports: see HPI Physical Exam Vital Signs: RN Vital Signs have been reviewed: Yes, Temperature: 97.5, Source: Temporal, Heart Rate: 69, Respiratory Rate: 17, BP: 127/70, Pulse Oximetry: 94, Weight: 51.450 Physical Exam General: Alert, no apparent distress. Neck: Full range of motion. Respiratory: Minimal rhonchi auscultated posteriorly to the bases more to the left than to the right no wheezing no respiratory distress. Chest: No accessory muscle use. Cardiovascular: Regular rate and rhythm, no murmurs. Extremities: Normal range of motion, no deformity. Neurologic: Oriented x4. Psychiatric: Normal mood and affect. Skin: Normal color, warm and dry. No edema, no ecchymosis. Progress Results/Orders Results/Orders Vital Signs 04/23/25 11:28 Temp 97.5 Pulse 69 Resp 17 B/P (MAP) 127/70 Pulse Ox 94 EKG/XRAY/CT/US/VASC/MRI Chest X-Ray : Additional Comments CHEST RADIOGRAPH Indication: PNA Technique: Frontal and lateral view of the chest was obtained Comparison: None FINDINGS: Lines and Tubes: Left chest AICD Lungs: Diffuse increased interstitial prominence. Pleura: No effusion. No pneumothorax. Cardiomediastinal contours: Unremarkable Bones: Unremarkable IMPRESSION: Probable diffuse chronic changes of pulmonary fibrosis. Superimposed pulmonary vascular congestion or viral pneumonia is not excluded. Medical Decision Making Findings Discussed antibiotic which is amoxicillin questioning for lower respiratory infection patient denies any recent azithromycin use. Patient has had some increased shortness of breath with exertion and cough with lower respiratory infection symptoms being treated. X-ray to evaluate lung prajapati. X-ray was negative for any acute abnormalities switch to Zithromax to follow up with primary care given an expectorant to help with cough Departure Time of Disposition: 11:59 Disposition: 01 HOME / SELF CARE / HOMELESS Impression: Primary Impression: Acute upper respiratory infection Condition: Stable Discharge Instructions: Upper Respiratory Infection, Adult Additional Instructions: X-ray was clear for any signs bacterial pneumonia but states it could be viral. Continue taking your already prescribed antibiotic I did add another antibiotics follow up with primary care continue to monitor for any new or worsening symptoms and feel free to return to the ER CHEST RADIOGRAPH Indication: PNA Technique: Frontal and lateral view of the chest was obtained Comparison: None FINDINGS: Lines and Tubes: Left chest AICD Lungs: Diffuse increased interstitial prominence. Pleura: No effusion. No pneumothorax. Cardiomediastinal contours: Unremarkable Bones: Unremarkable IMPRESSION: Probable diffuse chronic changes of pulmonary fibrosis. Superimposed pulmonary vascular congestion or viral pneumonia is not excluded. Referrals: NO PRIMARY CARE PROVIDER (PCP) Prescriptions Guaifenesin/Dextromethorphan (Guaifenesin Dm Syrup) 100 Mg-10 Mg/5 Ml Syrup 5 ML PO Q8H for cough and congestion for 8 Days, #120 ML 0 Refills Prov: MICKIE RODRÍGUEZ NP 04/23/25 Azithromycin (Zithromax) 250 Mg Tablet 1 TAB PO UD for 5 Days, #6 TAB 2 the first day followed by 1 for days 2-5 Prov: MICKIE RODRÍGUEZ NP 04/23/25 Education Educated: Patient Educated regarding: diagnosis, treatment, need for follow up Signature Scribe Signature: No Scribe Attestation: The note accurately reflects work and decisions made by me.Mickie VAZQUEZ 04/23/25 11:47 MICKIE RODRÍGUEZ NP Apr 23, 2025 11:48
--- NOTE | 2025-04-23 11:53 | RADIOLOGY REPORT ---
CHEST RADIOGRAPH Indication: PNA Technique: Frontal and lateral view of the chest was obtained Comparison: None FINDINGS: Lines and Tubes: Left chest AICD Lungs: Diffuse increased interstitial prominence. Pleura: No effusion. No pneumothorax. Cardiomediastinal contours: Unremarkable Bones: Unremarkable IMPRESSION: Probable diffuse chronic changes of pulmonary fibrosis. Superimposed pulmonary vascular congestion or viral pneumonia is not excluded.
[2025-04-23 12:19] VITALS: RESP 16; TEMP 97.9
== END 2025-04-23 12:10 | disposition home or self-care (01) ==
LOC: ER 11:27
DX: J06.9 Acute upper respiratory infection, unspecified (principal); I25.10 Atherosclerotic heart disease of native coronary artery without angina pectoris; I25.2 Old myocardial infarction; J44.9 Chronic obstructive pulmonary disease, unspecified; Z88.1 Allergy status to other antibiotic agents
CPT/HCPCS: 71046; 99283